=== PATIENT | male | born 1975 | race Caucasian/White ===

== ENCOUNTER 2020-12-10 23:35 | Inpatient (IN) | payer OTHER, SELFPAY ==
[2020-12-10 23:44] VITALS: BP 94/55; PULSE 125; RESP 20; TEMP 39; O2SAT 94; BMI 31.5
--- NOTE | 2020-12-10 23:53 | XRR_ITS ---
PROCEDURE INFORMATION: Exam: XR Chest Exam date and time: 12/11/2020 12:05 AM Age: 45 years old Clinical indication: Fever; Prior surgery; Surgery date: 6+ months TECHNIQUE: Imaging protocol: XR of the chest. Views: 1 view. COMPARISON: CR Chest 1 [place] [id number] 08/03/2018 8:05 PM FINDINGS: Lungs: Unremarkable. No consolidation. Pleural spaces: Unremarkable. No pleural effusion. No pneumothorax. Heart/Mediastinum: Unremarkable. No cardiomegaly. Bones/joints: There has been a median sternotomy. XR/XR chest 1V portable [id number] IMPRESSION: No acute disease.
--- NOTE | 2020-12-10 23:55 | ED_ITS ---
Documented by User: CT Callahan 12/11/20 02:09 HPI - General Adult General: Chief complaint: General Medical Stated complaint: fever Time Seen by Provider: 12/10/20 23:53 Source: patient Mode of arrival: ambulatory Limitations: no limitations History of Present Illness: HPI narrative: 45-year-old male patient comes in today with complaints of nausea vomiting and diarrhea for 3 days. Patient also reports fever. Patient does have a history of IV drug use with his last use 24 hours ago. 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 Patient has had a valve replacement due to this heart disease. Patient denies any routine medications. Associated symptoms: Reports nausea and vomiting Review of Systems General: Reports: 10 or more systems reviewed and unremarkable except in HPI and below Const: Reports: fever(s) GI: Reports: nausea, vomiting and diarrhea Physical Exam Const: COMMON NORMALS: no acute distress and patient oriented x3 GENERAL APPEARANCE: cooperative HENMT: COMMON NORMALS: normocephalic and Normal external nose present HEAD & SCALP: normal to inspection and normocephalic NOSE: Normal external nose present MOUTH: Normal oral and palatal mucosa present THROAT: posterior oropharynx normal Eye: GENERAL EYE: appearance normal, both eyes and all related structures Neck/C-Spine: COMMON NORMALS: full ROM Lymph: LYMPHATIC: no lymphadenopathy noted Chest: COMMONS NORMALS: normal inspection of the chest Resp: COMMON NORMALS: normal respiratory effort EFFORT & INSPECTION: Yes able to speak in complete sentences Cardio: COMMON NORMALS: regular rate and regular rhythm RATE: regular rate RHYTHM: regular rhythm GI: COMMON NORMALS: non-tender INSPECTION: Yes normal to inspection AUSCULTATION: Yes Hyperactive bowel sounds present : COMMON NORMALS: Yes no CVA tenderness BLADDER/KIDNEY EXAM: Yes no CVA tenderness Back/Pelvis: COMMON NORMALS: no CVA tenderness and thoracic and lumbar spine normal to inspection Extremity: COMMON NORMALS: normal to inspection Neuro: COMMON NORMALS: patient oriented x3 and moves all extremities Psych: COMMON NORMALS: mental status grossly normal and cooperative Skin: COMMON NORMALS: no rashes or lesions noted GENERAL SKIN EXAM: no rashes or lesions noted Course ED course: 125, discussed with Dr. Bee abnormalities of patient's labs including a lactate of 3.6, and concerns for patient's history of heart valve disease secondary to MRSA infection. Expressed my also concerns regarding patient's continued IV drug use. He agreed with plan to initiate vancomycin and Zosyn for infection.wjw [id number], reviewed patient white count with Dr. Bee who agreed that patient will need to be admitted for sepsis due to concerns of valve heart replacement, elevated white count and fever. He will visit with patient and discuss with hospitalist. wjw Vital Signs: Vital signs: Vital Signs Temperature 102.4 F H 12/11/20 04:19 Pulse Rate 103 H 12/11/20 04:19 Respiratory Rate 20 H 12/11/20 04:19 Blood Pressure 80/45 12/11/20 04:19 Pulse Oximetry 96 12/11/20 04:19 MDM - General Adult Lab Data: Labs: Lab Results 12/11/20 12/11/20 12/11/20 Range/Units 00:30 00:30 00:32 WBC Cancelled Corrected WBC Cancelled RBC Cancelled Hgb Cancelled Hct Cancelled MCV Cancelled MCH Cancelled MCHC Cancelled RDW Cancelled Plt Count Cancelled MPV Cancelled Gran % Cancelled Neut % (Auto) Cancelled Lymph % (Auto) Cancelled [place] % (Auto) Cancelled Eos % (Auto) Cancelled Baso % (Auto) Cancelled Neut # (Auto) Cancelled Lymph # (Auto) Cancelled [place] # (Auto) Cancelled Eos # (Auto) Cancelled Baso # (Auto) Cancelled Absolute Gran (aut o) Cancelled Nucleated RBC % (a uto) Cancelled Nucleated RBCs # Cancelled Sodium (136-145) mmol/L Potassium (3.5-5.1) mmol/L Chloride (98-107) mmol/L Carbon Dioxide (22-29) mmol/L Anion Gap (5-19) BUN (6-20) mg/dL Creatinine (0.7-1.2) mg/dL GFR Calculation (90-130) mL/min Glucose (65-115) mg/dL Calculated Osmolal ity (285-295) mOsm/k g Lactic Acid (0.5-2.2) mmol/L Lactate (0.5-2.2) mmol/L Calcium (8.5-10.5) mg/dL Total Bilirubin (0.15-1.2) mg/dL AST (0-40) U/L ALT (0-41) U/L Alkaline Phosphata se (40-130) IU/L C-Reactive Protein (0.0-4.9) mg/L Total Protein (6.6-8.7) g/dL Albumin (3.5-5.2) g/dL Globulin (1.3-4.6) g/dL Influenza Type A A g Negative (Negative) Influenza Type B A g Negative (Negative) SARS-CoV-2 Ag (Rap id) Negative (Negative) 12/11/20 12/11/20 12/11/20 Range/Units 00:32 00:32 00:32 WBC Corrected WBC RBC Hgb Hct MCV MCH MCHC RDW Plt Count MPV Gran % Neut % (Auto) Lymph % (Auto) [place] % (Auto) Eos % (Auto) Baso % (Auto) Neut # (Auto) Lymph # (Auto) [place] # (Auto) Eos # (Auto) Baso # (Auto) Absolute Gran (aut o) Nucleated RBC % (a uto) Nucleated RBCs # Sodium 134 L (136-145) mmol/L Potassium 4.2 (3.5-5.1) mmol/L Chloride 99 (98-107) mmol/L Carbon Dioxide 22 (22-29) mmol/L Anion Gap 17.2 (5-19) BUN 26 H (6-20) mg/dL Creatinine 1.7 H (0.7-1.2) mg/dL GFR Calculation 43.8 L (90-130) mL/min Glucose 122 H (65-115) mg/dL Calculated Osmolal ity 284 L (285-295) mOsm/k g Lactic Acid (0.5-2.2) mmol/L Lactate 3.6 H (0.5-2.2) mmol/L Calcium 8.8 (8.5-10.5) mg/dL Total Bilirubin 1.2 (0.15-1.2) mg/dL AST 37 (0-40) U/L ALT 19 (0-41) U/L Alkaline Phosphata se 69 (40-130) IU/L C-Reactive Protein 32.8 H (0.0-4.9) mg/L Total Protein 6.7 (6.6-8.7) g/dL Albumin 3.7 (3.5-5.2) g/dL Globulin 3.0 (1.3-4.6) g/dL Influenza Type A A g (Negative) Influenza Type B A g (Negative) SARS-CoV-2 Ag (Rap id) (Negative) 12/11/20 12/11/20 Range/Units 01:27 02:40 WBC 24.4 H Corrected WBC RBC 4.63 Hgb 14.3 Hct 41.8 L MCV 90.3 MCH 30.9 MCHC 34.2 RDW 13.4 Plt Count 235 MPV 9.8 Gran % Neut % (Auto) 89.4 Lymph % (Auto) 4.1 [place] % (Auto) 4.4 Eos % (Auto) 0.0 Baso % (Auto) 0.6 Neut # (Auto) 21.78 H Lymph # (Auto) 1.0 [place] # (Auto) 1.1 H Eos # (Auto) 0.0 Baso # (Auto) 0.2 H Absolute Gran (aut o) Nucleated RBC % (a uto) 0 Nucleated RBCs # 0.0 Sodium (136-145) mmol/L Potassium (3.5-5.1) mmol/L Chloride (98-107) mmol/L Carbon Dioxide (22-29) mmol/L Anion Gap (5-19) BUN (6-20) mg/dL Creatinine (0.7-1.2) mg/dL GFR Calculation (90-130) mL/min Glucose (65-115) mg/dL Calculated Osmolal ity (285-295) mOsm/k g Lactic Acid 1.7 (0.5-2.2) mmol/L Lactate (0.5-2.2) mmol/L Calcium (8.5-10.5) mg/dL Total Bilirubin (0.15-1.2) mg/dL AST (0-40) U/L ALT (0-41) U/L Alkaline Phosphata se (40-130) IU/L C-Reactive Protein (0.0-4.9) mg/L Total Protein (6.6-8.7) g/dL Albumin (3.5-5.2) g/dL Globulin (1.3-4.6) g/dL Influenza Type A A g (Negative) Influenza Type B A g (Negative) SARS-CoV-2 Ag (Rap id) (Negative) Discharge Plan Discharge Patient Disposition: Admitted As Inpatient Admit Provider: Timmy Berrios Clinical Impression: Sepsis Qualifiers: Sepsis type: sepsis due to unspecified organism Sepsis acute organ dysfunction status: unspecified Qualified Code(s): A41.9 - Sepsis, unspecified organism Condition: Stable Coding Level of Care Code ED Soil Technician for [facility] Fwd Exam Comprehensive Documented by User: Tab Bee, 12/11/20 04:26 HPI - General Adult General: Chief complaint: General Medical Stated complaint: fever Time Seen by Provider: 12/10/20 23:53 Course Consultations: Consultation #1: Migel Vital Signs: Vital signs: Vital Signs Temperature 102.4 F H 12/11/20 04:19 Pulse Rate 103 H 12/11/20 04:19 Respiratory Rate 20 H 12/11/20 04:19 Blood Pressure 80/45 12/11/20 04:19 Pulse Oximetry 96 12/11/20 04:19 MDM - General Adult MDM Narrative: Medical decision making narrative: 45-year-old patient originally seen by CT James. I agree with his history, evaluation, and treatment. I have seen this patient as well. He has a history of endocarditis, with valve replacement. He continues to use IV drugs. He comes in with high fever of 102.7. He is mildly tachycardic. He was mildly hypotensive on arrival, which returned to normal with 1 fluid bolus. His white blood cell count is 24.4. There is a left shift. His creatinine is 1.7 which appears chronically stable for him. There is no clear source of the fever and leukocytosis yet. Swabs for flu and COVID-19 are negative. His chest x-ray is negative. His urinalysis is pending. Blood cultures have been obtained. He has received vancomycin and Zosyn. Given his history of endocarditis, this must be entertained, as he continues to use IV drugs. He will be hospitalized. Hospitalist has seen the patient in the ER Lab Data: Labs: Lab Results 0412/11/20 12/11/20 Range/Units 00:30 00:30 00:32 WBC Cancelled Corrected WBC Cancelled RBC Cancelled Hgb Cancelled Hct Cancelled MCV Cancelled MCH Cancelled MCHC Cancelled RDW Cancelled Plt Count Cancelled MPV Cancelled Gran % Cancelled Neut % (Auto) Cancelled Lymph % (Auto) Cancelled [place] % (Auto) Cancelled Eos % (Auto) Cancelled Baso % (Auto) Cancelled Neut # (Auto) Cancelled Lymph # (Auto) Cancelled [place] # (Auto) Cancelled Eos # (Auto) Cancelled Baso # (Auto) Cancelled Absolute Gran (aut o) Cancelled Nucleated RBC % (a uto) Cancelled Nucleated RBCs # Cancelled Sodium (136-145) mmol/L Potassium (3.5-5.1) mmol/L Chloride (98-107) mmol/L Carbon Dioxide (22-29) mmol/L Anion Gap (5-19) BUN (6-20) mg/dL Creatinine (0.7-1.2) mg/dL GFR Calculation (90-130) mL/min Glucose (65-115) mg/dL Calculated Osmolal ity (285-295) mOsm/k g Lactic Acid (0.5-2.2) mmol/L Lactate (0.5-2.2) mmol/L Calcium (8.5-10.5) mg/dL Total Bilirubin (0.15-1.2) mg/dL AST (0-40) U/L ALT (0-41) U/L Alkaline Phosphata se (40-130) IU/L C-Reactive Protein (0.0-4.9) mg/L Total Protein (6.6-8.7) g/dL Albumin (3.5-5.2) g/dL Globulin (1.3-4.6) g/dL Influenza Type A A g Negative (Negative) Influenza Type B A g Negative (Negative) SARS-CoV-2 Ag (Rap id) Negative (Negative) 12/11/20 12/11/20 12/11/20 Range/Units 00:32 00:32 00:32 WBC Corrected WBC RBC Hgb Hct MCV MCH MCHC RDW Plt Count MPV Gran % Neut % (Auto) Lymph % (Auto) [place] % (Auto) Eos % (Auto) Baso % (Auto) Neut # (Auto) Lymph # (Auto) [place] # (Auto) Eos # (Auto) Baso # (Auto) Absolute Gran (aut o) Nucleated RBC % (a uto) Nucleated RBCs # Sodium 134 L (136-145) mmol/L Potassium 4.2 (3.5-5.1) mmol/L Chloride 99 (98-107) mmol/L Carbon Dioxide 22 (22-29) mmol/L Anion Gap 17.2 (5-19) BUN 26 H (6-20) mg/dL Creatinine 1.7 H (0.7-1.2) mg/dL GFR Calculation 43.8 L (90-130) mL/min Glucose 122 H (65-115) mg/dL Calculated Osmolal ity 284 L (285-295) mOsm/k g Lactic Acid (0.5-2.2) mmol/L Lactate 3.6 H (0.5-2.2) mmol/L Calcium 8.8 (8.5-10.5) mg/dL Total Bilirubin 1.2 (0.15-1.2) mg/dL AST 37 (0-40) U/L ALT 19 (0-41) U/L Alkaline Phosphata se 69 (40-130) IU/L C-Reactive Protein 32.8 H (0.0-4.9) mg/L Total Protein 6.7 (6.6-8.7) g/dL Albumin 3.7 (3.5-5.2) g/dL Globulin 3.0 (1.3-4.6) g/dL Influenza Type A A g (Negative) Influenza Type B A g (Negative) SARS-CoV-2 Ag (Rap id) (Negative) 12/11/20 12/11/20 Range/Units 01:27 02:40 WBC 24.4 H Corrected WBC RBC 4.63 Hgb 14.3 Hct 41.8 L MCV 90.3 MCH 30.9 MCHC 34.2 RDW 13.4 Plt Count 235 MPV 9.8 Gran % Neut % (Auto) 89.4 Lymph % (Auto) 4.1 [place] % (Auto) 4.4 Eos % (Auto) 0.0 Baso % (Auto) 0.6 Neut # (Auto) 21.78 H Lymph # (Auto) 1.0 [place] # (Auto) 1.1 H Eos # (Auto) 0.0 Baso # (Auto) 0.2 H Absolute Gran (aut o) Nucleated RBC % (a uto) 0 Nucleated RBCs # 0.0 Sodium (136-145) mmol/L Potassium (3.5-5.1) mmol/L Chloride (98-107) mmol/L Carbon Dioxide (22-29) mmol/L Anion Gap (5-19) BUN (6-20) mg/dL Creatinine (0.7-1.2) mg/dL GFR Calculation (90-130) mL/min Glucose (65-115) mg/dL Calculated Osmolal ity (285-295) mOsm/k g Lactic Acid 1.7 (0.5-2.2) mmol/L Lactate (0.5-2.2) mmol/L Calcium (8.5-10.5) mg/dL Total Bilirubin (0.15-1.2) mg/dL AST (0-40) U/L ALT (0-41) U/L Alkaline Phosphata se (40-130) IU/L C-Reactive Protein (0.0-4.9) mg/L Total Protein (6.6-8.7) g/dL Albumin (3.5-5.2) g/dL Globulin (1.3-4.6) g/dL Influenza Type A A g (Negative) Influenza Type B A g (Negative) SARS-CoV-2 Ag (Rap id) (Negative) Discharge Plan Discharge Patient Disposition: Admitted As Inpatient Admit Provider: Timmy Berrios Clinical Impression: Sepsis Qualifiers: Sepsis type: sepsis due to unspecified organism Sepsis acute organ dysfunction status: unspecified Qualified Code(s): A41.9 - Sepsis, unspecified organism Condition: Stable Coding Level of Care Code ED Soil Technician for [facility] Fwd Exam Comprehensive
[2020-12-11] VITALS (15 sets, daily range): BP systolic 80–121; BP diastolic 45–63; PULSE 72–104; RESP 17–20; TEMP 37.4–39.1; O2SAT 94–99
[2020-12-11] MEDS: ketorolac 30 mg/mL INJ 15 MG IVP (00:27)
[2020-12-11] MEDS: sodium chloride 0.9% 1,000 ML 999 ML IV ×2 (00:27→01:33)
[2020-12-11] MEDS: ondansetron 2 mg/ML SDV 2 mL 4 MG IVP (00:27)
[2020-12-11 00:59] LABS: Lactate (Lactic Acid level) 3.6 mmol/L (0.5-2.2)
[2020-12-11 01:01] LABS: Alanine Aminotransferase 19 U/L (0-41); Albumin Level 3.7 g/dL (3.5-5.2); Alkaline Phosphatase 69 IU/L (40-130); Anion Gap 17.2 (5-19); Aspartate Amino Transferase 37 U/L (0-40); Blood Urea Nitrogen 26 mg/dL (6-20); Calcium 8.8 mg/dL (8.5-10.5); Carbon Dioxide 22 mmol/L (22-29); Chloride 99 mmol/L (98-107); Glomerular Filtration Rate 43.8 mL/min (90-130); Glucose 122 mg/dL (65-115); Osmolality Calculated 284 mOsm/kg (285-295); Potassium 4.2 mmol/L (3.5-5.1); Sodium 134 mmol/L (136-145); Total Bilirubin 1.2 mg/dL (0.15-1.2); Total Protein 6.7 g/dL (6.6-8.7)
[2020-12-11 01:03] LABS: Influenza A by IFA Negative (Negative); Influenza B by IFA Negative (Negative); SARS Covid-2 Antigen Negative (Negative)
--- NOTE | 2020-12-11 01:13 | CTR_ITS ---
PROCEDURE INFORMATION: Exam: CT Abdomen And Pelvis Without Contrast Exam date and time: 12/11/2020 1:16 AM Age: 45 years old Clinical indication: Nausea and vomiting; Additional info: N/v/d, fever, TECHNIQUE: Imaging protocol: Computed tomography of the abdomen and pelvis without contrast. Radiation optimization: All CT scans at this facility use at least one of these dose optimization techniques: automated exposure control; mA and/or kV adjustment per patient size (includes targeted exams where dose is matched to clinical indication); or iterative reconstruction. COMPARISON: CT Chest/Abdomen/Pelvis w IV* 06/05/2018 3:52 PM RADIATION DOSE METRICS: Total DLP (mGy-cm): 1549.18 FINDINGS: Lungs: The lung bases are clear. No effusion Liver: There is fatty infiltration of the liver. Gallbladder and bile ducts: No wall thickening, pericholecystic fluid or stones. Pancreas: Normal. No ductal dilation. Spleen: Normal. No splenomegaly. Adrenal glands: Normal. No mass. Kidneys and ureters: 2 mm nonobstructing right renal pelvis stone. Stomach and bowel: Unremarkable. No obstruction. No mucosal thickening. Appendix: No evidence of appendicitis. Intraperitoneal space: Unremarkable. No free air. No significant fluid collection. Vasculature: Unremarkable. No abdominal aortic aneurysm. Lymph nodes: Unremarkable. No enlarged lymph nodes. Urinary bladder: Unremarkable as visualized. Reproductive: Unremarkable as visualized. Bones/joints: Unremarkable. No acute fracture. Soft tissues: Unremarkable. CT/CT abdomen pelvis wo con [id number] IMPRESSION: 1. Fatty infiltration of the liver. 2. 2 mm nonobstructing right renal pelvis stone. Radiation Dose CTDIVOL = (mGy): DLP = 1549.18 (mGy-cm)
[2020-12-11] MEDS: piperacillin-tazobactam 3.375 GM in sodium chloride 0.9% (plus) 50 ML IV ×3 (01:34→16:32)
[2020-12-11 02:00] LABS: Basophils # 0.2 10^3/uL (0.0-0.1); Basophils % 0.6 %; Hematocrit 41.8 % (42.0-52.0); Hemoglobin 14.3 g/dL (11.7-16.6); Lymphocytes % 4.1 %; Mean Corpuscular HGB Conc 34.2 g/dL (30.0-36.0); Mean Corpuscular Hemoglobin 30.9 pg (28.0-34.0); Mean Corpuscular Volume 90.3 fL (80-94); Mean Platelet Volume 9.8 fL (7.4-10.4); Monocytes # 1.1 10^3/uL (0.2-0.9); Monocytes % 4.4 %; Neutrophils # 21.78 10^3/uL (1.8-7.7); Neutrophils % 89.4 %; Nucleated Red Blood Cells % 0 %; Platelet Count 235 10^3/cmm (130-400); Red Blood Count 4.63 10^6/uL (4.1-5.3); Red Cell Distribution Width 13.4 % (12.1-15.1); White Blood Count 24.4 10^3/uL (4.0-10.0)
[2020-12-11] MEDS: vancomycin 1,000 MG in sodium chloride 0.9% 250 ML 250 MG IV (02:11)
[2020-12-11] MEDS: acetaminophen 500 mg Tablet 1000 MG PO (03:01)
[2020-12-11 03:03] LABS: Lactic Sepsis W/Reflex 1.7 mmol/L (0.5-2.2)
[2020-12-11 03:11] LABS: C Reactive Protein 32.8 mg/L (0.0-4.9)
--- NOTE | 2020-12-11 04:00 | USCV_ITS ---
Radu Olivera Age: 45 Gender: M : 1975 Exam Date: 12/11/2020 07:08 Ordering Phys: Timmy Berrios MD Technologist: Christine Enriquez Exam Location: [facility] [place] Indication: Endocarditis, history of tricuspid valve replacement BP: 121 / 49 HR: 89 Rhythm: Sinus Technical Quality: Suboptimal MEASUREMENTS (Male / Female) Normal Values 2D ECHO LV Diastolic Diameter PLAX 3.7 cm 4.2 - 5.9 / 3.9 - 5.3 cm LV Systolic Diameter PLAX 3.2 cm LV Chamber Size 4.7 cm IVS Diastolic Thickness 1.3 cm 0.6 - 1.0 / 0.6 - 0.9 cm IVS Systolic Thickness 1.7 cm LVPW Diastolic Thickness 0.9 cm 0.6 - 1.0 / 0.6 - 0.9 cm LVPW Systolic Thickness 1.0 cm RV Chamber Size 3.5 cm LVOT Diameter 2.3 cm LV Ejection Fraction 2D Teich 29.4 % LV Ejection Fraction MOD 2C 48.6 % LV Ejection Fraction 2C AL 46.9 % LA Diameter 3.0 cm LA Width 2.3 cm LA Height 5.3 cm RA Width 2.6 cm RA Height 5.3 cm Aorta at Sinotubular Diameter 3.0 cm M-MODE LV Diastolic Diameter MM 4.5 cm 4.2 - 5.9 / 3.9 - 5.3 cm LV Systolic Diameter MM 2.9 cm LV Ejection Fraction MM Teich 66.1 % IVS Diastolic Thickness MM 1.2 cm 0.6 - 1.0 / 0.6 - 0.9 cm IVS Systolic Thickness MM 1.6 cm LVPW Diastolic Thickness MM 1.4 cm 0.6 - 1.0 / 0.6 - 0.9 cm LVPW Systolic Thickness MM 1.9 cm RV Diastolic Diameter MM 1.0 cm Aortic Annulus Diameter 4.0 cm LA Ao Ratio MM 0.8 MV E Point Septal Separation 1.1 cm DOPPLER AV Peak Velocity 79.0 cm/s LVOT Peak Velocity 57.0 cm/s AV Area Cont Eq vti 2.8 cm squared AV Area Cont Eq pk 3.0 cm squared MV Area PHT 4.0 cm squared Mitral E to A Ratio 1.1 MV E' Velocity 34.5 cm/s Mitral E to MV E' Ratio 5.7 Mitral E to LV E' Lateral Ratio 4.0 Mitral E to LV E' Septal Ratio 9.7 TV Peak E Velocity 171.0 cm/s Right Atrial Pressure 8.0 mmHg PV Peak Velocity 77.0 cm/s RV Acceleration Time 0.1 s RV Ejection Time 0.2 s RV AcT/ET 0.4 FINDINGS Left Ventricle Normal left ventricular cavity size. Normal left ventricular systolic function. Left ventricular ejection fraction is estimated at 55 %. Normal diastolic function. Right Ventricle The right ventricle is normal in size and function. Right Atrium Moderately increased right atrial size. Left Atrium The left atrium is normal in size. Mitral Valve Structurally normal mitral valve without significant stenosis or prolapse. There is no mitral regurgitation. Aortic Valve Structurally normal aortic valve without significant sclerosis or stenosis. There is no aortic regurgitation. Tricuspid Valve Bioprosthetic tricuspid valve sitting in normal position, there appeared to be thickening and sub prosthetic valve apparatus funky movement suspicious for vegetation. Clinical correlation advised further exploration with transesophageal echocardiogram recommend Pulmonic Valve Pulmonic valve not well visualized. Pericardium Normal pericardium without effusion. Aorta Normal ascending aorta dimension. CONCLUSIONS 1-Normal left ventricular cavity size. Normal left ventricular systolic function. Left ventricular ejection fraction is estimated at 55 %. Normal diastolic function. 2-Bioprosthetic tricuspid valve sitting in normal position, there appeared to be thickening and sub prosthetic valve apparatus funky movement suspicious for vegetation. Clinical correlation advised further exploration with transesophageal echocardiogram recommend. 3-No more valvular abnormality observed 4-There is no pericardial effusion. 5-Right atrial pressure is around 15 mm of mercury. 6-There are no prior Trans echocardiogram studies to compare. Sal Myers MD (Electronically Signed) Final Date: 11 December 2020 14:33 S
--- NOTE | 2020-12-11 04:03 | PM.HP ---
Providers/Chief Complaint Admitting Physician: Timmy Berrios Primary Care Provider: Cooper Lua DO Chief Complaint: fever History of Present Illness Radu Olivera is a 45 year old male with past medical history of IV drug use, history of infective endocarditis and bioprosthetic tricuspid valve replacement in 2019 who presented to emergency room due to fever which started several days ago. Reports associated rigors, chills. Reports muscle aches. The patient is very sleepy and is not willing to actively participate in the conversation. He is not willing to provide details. He admits to currently using IV drugs. He denies any associated headache, neck stiffness, nausea or vomiting, chest pain, shortness of breath, cough, palpitations, diarrhea, dysuria. Review of Systems General: Reports: 10 or more systems reviewed and unremarkable except in HPI and below Medications/Allergies Home Medications Medication Instructions Recorded Confirmed Last Taken Type No Known Home Medications 12/10/20 12/10/20 Unknown History Allergies Allergy/AdvReac Type Severity Reaction Status Date / Time No Known Allergies Allergy Verified 12/10/20 23:48 Vitals/I&O/Wt Last Vital Signs Temp 99.4 F 12/11/20 01:38 Pulse 99 12/11/20 03:01 Resp 18 12/11/20 03:01 BP 121/49 12/11/20 03:01 Pulse Ox 99 12/11/20 03:01 12/10/20 12/10/20 12/11/20 14:59 22:59 06:59 Intake Total 2300 / 2300 Balance 2300 / 2300 Weight last 48 hrs Weight 99.79 kg Physical Exam Narrative: EXAM NARRATIVE: The patient is sleepy. When he wakes up his responses are adequate. Falls asleep quickly. No acute distress. Skin is warm and dry Moist mucous membranes Eyes PERRL, extraocular muscles are intact Neck supple. No JVD Moves all extremities. No focal weakness. No facial asymmetry. Kernig and Brudzinski are negative. Lungs are clear. No respiratory distress Heart S1, S2, regular Abdomen soft, nontender, obese, bowel sounds are present Extremities. Injection joe are present on the left elbow. No associated swelling or signs of cellulitis or abscess. No peripheral cyanosis or calf tenderness bilaterally Data : 12/11/20 01:27 12/11/20 00:32 Other Labs: Laboratory Results WBC 24.4 10^3/uL (4.0-10.0) H 12/11/20 01:27 Corrected WBC Cancelled 12/11/20 00:32 RBC 4.63 10^6/uL (4.1-5.3) 12/11/20 01:27 Hgb 14.3 g/dL (11.7-16.6) 12/11/20 01:27 Hct 41.8 % (42.0-52.0) L 12/11/20 01:27 MCV 90.3 fL (80-94) 12/11/20 01:27 MCH 30.9 pg (28.0-34.0) 12/11/20 01: MCHC 34.2 g/dL (30.0-36.0) 12/11/20 01: RDW 13.4 % (12.1-15.1) 12/11/20 01:27 Plt Count 235 10^3/cmm (130-400) 12/11/20 01:27 MPV 9.8 fL (7.4-10.4) 12/11/20 01:27 Gran % Cancelled 12/11/20 00:32 Neut % (Auto) 89.4 % 12/11/20 01:27 Lymph % (Auto) 4.1 % 12/11/20 01:27 [place] % (Auto) 4.4 % 12/11/20 01:27 Eos % (Auto) 0.0 % 12/11/20 01: Baso % (Auto) 0.6 % 12/11/20 01:27 Neut # (Auto) 21.78 10^3/uL (1.8-7.7) H 12/11/20 01:27 Lymph # (Auto) 1.0 10^3/uL (0.8-4.8) 12/11/20 01:27 [place] # (Auto) 1.1 10^3/uL (0.2-0.9) H 12/11/20 01:27 Eos # (Auto) 0.0 10^3/uL (0.0-0.8) 12/11/20 01:27 Baso # (Auto) 0.2 10^3/uL (0.0-0.1) H 12/11/20 01:27 Absolute Gran (auto) Cancelled 12/11/20 00:32 Nucleated RBC % (auto) 0 % 12/11/20 01:27 Nucleated RBCs # 0.0 /100WBC 12/11/20 01:27 Sodium 134 mmol/L (136-145) L 12/11/20 00:32 Potassium 4.2 mmol/L (3.5-5.1) 12/11/20 00:32 Chloride 99 mmol/L (98-107) 12/11/20 00:32 Carbon Dioxide 22 mmol/L (22-29) 12/11/20 00:32 Anion Gap 17.2 (5-19) 12/11/20 00:32 BUN 26 mg/dL (6-20) H 12/11/20 00:32 Creatinine 1.7 mg/dL (0.7-1.2) H 12/11/20 00:32 GFR Calculation 43.8 mL/min (90-130) L 12/11/20 00:32 Glucose 122 mg/dL (65-115) H 12/11/20 00:32 Calculated Osmolality 284 mOsm/kg (285-295) L 12/11/20 00:32 Lactic Acid 1.7 mmol/L (0.5-2.2) 12/11/20 02:40 Lactate 3.6 mmol/L (0.5-2.2) H 12/11/20 00:32 Calcium 8.8 mg/dL (8.5-10.5) 12/11/20 00:32 Total Bilirubin 1.2 mg/dL (0.15-1.2) 12/11/20 00:32 AST 37 U/L (0-40) 12/11/20 00:32 ALT 19 U/L (0-41) 12/11/20 00:32 Alkaline Phosphatase 69 IU/L (40-130) 12/11/20 00:32 C-Reactive Protein 32.8 mg/L (0.0-4.9) H 12/11/20 00:32 Total Protein 6.7 g/dL (6.6-8.7) 12/11/20 00:32 Albumin 3.7 g/dL (3.5-5.2) 12/11/20 00:32 Globulin 3.0 g/dL (1.3-4.6) 04 00:32 Influenza Type A Ag Negative (Negative) 12/11/20 00:30 Influenza Type B Ag Negative (Negative) 12/11/20 00:30 SARS-CoV-2 Ag (Rapid) Negative (Negative) 12/11/20 00:30 Impressions Chest X-Ray 12/10/20 23:53 IMPRESSION: No acute disease. Abdomen/Pelvis CT 12/11/20 01:13 IMPRESSION: 1. Fatty infiltration of the liver. 2. 2 mm nonobstructing right renal pelvis stone. Radiation Dose CTDIVOL = (mGy): DLP = 1549.18 (mGy-cm) Micro: Microbiology 12/11/20 01:20 Blood Culture - Preliminary Blood SPECIMEN COLLECTED 12/11/20 00:32 Blood Culture - Preliminary Blood SPECIMEN COLLECTED A&P Additional A&P Information 45 year old male with past medical history of IV drug use, history of infective endocarditis and bioprosthetic tricuspid valve replacement in 2019 who presented to emergency room due to fever which started several days ago. Fever. Unknown etiology. UA is pending. At this point infective endocarditis is highly suspected. Blood cultures are taken. We will start vancomycin and Zosyn. Will request complete echo to evaluate his valves. We will monitor his CRP and procalcitonin level. Somnolent. I suspect this is drug-induced. Will order his urine tox screen. We will monitor him closely. Acute kidney injury probably secondary to dehydration or infection. Will wait for UA. Will hydrate and monitor his renal function. Mild hyponatremia probably secondary to dehydration. DVT prophylaxis. Heparin. CODE STATUS. The patient wants to be full code. The plan of care was discussed with the patient. He verbalized understanding and agreement. Attestations Medical Necessity Statement*: Based on my assessment of patient's current condition he will require more than 2 midnights in the hospital. Coding Level of Care Code Acute Slate Roofer for Cesar Saucedo
[2020-12-11] MEDS: sodium chloride 0.9% 1,000 ML 125 ML IV ×2 (04:43→12:00)
[2020-12-11] MEDS: famotidine 20 mg/2 mL INJ IVP ×2 (04:45→16:32)
[2020-12-11] MEDS: heparin 5,000 unit/mL INJ 1 mL 5000 UNIT SUBCUT ×2 (04:46→16:32)
[2020-12-11 08:14] LABS: Lactic Sepsis W/Reflex 1.3 mmol/L (0.5-2.2)
--- NOTE | 2020-12-11 13:32 | PM.PN ---
Subjective Subjective: Interval history: Mild overnight. Physical reviewed. On examination lying comfortably in bed, little drowsy. Denies any nausea, vomiting. Wakes up to answer appropriately. Has had minimal breakfast today morning. Blood pressures have been ranging from 90-97 systolics. Vitals/I&O/Wt Last Vital Signs Temp 99.3 F 12/11/20 12:00 Pulse 79 12/11/20 12:00 Resp 18 12/11/20 12:00 BP 88/62 12/11/20 12:00 Pulse Ox 94 12/11/20 09:20 12/10/20 12/11/20 12/11/20 22:59 06:59 14:59 Intake Total 2300 / 2300 910.417 / 910.417 Balance 2300 / 2300 910.417 / 910.417 Weight last 48 hrs Weight 99.79 kg Physical Exam Narrative: EXAM NARRATIVE: General: No acute distress, AO x3, sleepy, drowsy, wakes up once appropriately, skin warm and dry HEENT: PERRLA, pupils bilaterally equal and reactive Chest: Normal vesicular breath sounds, no added sounds, equal good air entry bilaterally CVS: S1-S2 regular, pansystolic murmur in the tricuspid area, soft MDM at tricuspid area, no tachycardia, no gallops, no rubs Abdomen: Soft, nontender, no organomegaly, bowel sounds present Neuro: No focal deficits, no facial deformity, AO x3, power 5/5 in all limbs Data : 12/11/20 01:27 12/11/20 00:32 Micro: Microbiology 12/11/20 01:20 Blood Culture - Preliminary Blood SPECIMEN COLLECTED 12/11/20 00:32 Blood Culture - Preliminary Blood SPECIMEN COLLECTED A&P Assessment and plan (1) Sepsis: Status: Acute Qualifiers: Sepsis acute organ dysfunction status: unspecified Sepsis type: sepsis due to unspecified organism Qualified Code(s): A41.9 - Sepsis, unspecified organism (2) Fever: Status: Acute (3) IV drug abuse: Status: Acute Additional A&P Information 45 year old male with past medical history of IV drug use, history of infective endocarditis and bioprosthetic tricuspid valve replacement in 2019 who presented to emergency room due to fever which started several days ago. Sepsis: With history of IV drug abuse and history of infective endocarditis will have to rule out infective endocarditis again. Blood cultures taken, awaited. Lactic acid normal. Check procalcitonin, proBNP, MRSA swab, urinalysis, drug screen, urine culture, urine lites. For now continue patient on vancomycin and Zosyn. Will de-escalate antibiotics as per the culture results. Echocardiogram to be done. Tylenol for fever. Normal saline 125 cc/h. Monitor for fluid overload. Keep mean arterial blood pressures over 65. KINZA: Most likely secondary dehydration versus sepsis. Medical reconciliation done for nephrotoxic drugs. Check urine lites, urine creatinine, urine eosinophils. DVT prophylaxis. Heparin. Cardiac diet CODE STATUS. The patient wants to be full code. The plan of care was discussed with the patient. He verbalized understanding and agreement. Attestations Medical Necessity Statement*: Patient for management of sepsis most likely secondary to infective endocarditis Time Spent in Patient Care: Greater than 35 minutes (>than 50% of time spent in counselling and/or direct pt care on unit). Coding Level of Care Code Acute Charging Machine Operator for Cesar Saucedo Diagnoses Sepsis A41.9 Sepsis acute organ dysfunction status: unspecified Sepsis type: sepsis due to unspecified organism Fever R50.9 IV drug abuse F19.10
[2020-12-11 14:26] LABS: Add Urine Microscopic? YES; Bilirubin Urine 1+ (Negative); Blood Urine Neg (Negative); Glucose Urine UA Norm (Normal); Ketones Urine Negative (Negative); Leukocyte Esterase Urine Negative (Negative); Nitrate Urine Negative (Negative); Protein Urine Trace (Negative); Urine Appearance Clear (CLEAR); Urine Color Dark Yellow (Yellow); Urobilinogen Urine 1 mg/dL (Negative); pH Urine 5 (5-7)
[2020-12-11 14:34] LABS: WBC Urine RARE /hpf (0-5)
[2020-12-11 14:35] LABS: Bacteria Urine 1+ /hpf; Mucus Urine 1+ /hpf; Squamous Epithelial Cell Urine RARE /hpf (0-5)
[2020-12-11 14:36] LABS: NT Pro B Type Natriuretic Pept 1626 pg/mL (0-125); Procalcitonin 32.74 ng/mL (0-0.5)
[2020-12-11 14:36] LABS: Add Urine Culture? No
[2020-12-11 14:47] LABS: Iron 10 ug/dL (59-158); Percent Saturation 3.7 % (20-50); Total Iron Binding Capacity 270 mcg/dl; Unsaturated Iron Binding 260 ug/dL (112-347)
[2020-12-11 14:50] LABS: Amphetamines Screen Urine Positive (Negative); Barbiturates Screen Urine Negative (Negative); Benzodiazepines Screen Urine Negative (Negative); Cocaine Screen Urine Negative (Negative); Opiate Screen Urine Positive (Negative); PCP Screen Urine Negative (Negative); THC Screen Urine Negative (Negative)
[2020-12-11 15:02] LABS: Urine Creatinine 302 mg/dL (39-259)
[2020-12-11 15:42] LABS: Thyroid Stimulating Hormone 0.18 uIU/mL (0.27-4.20)
[2020-12-11 15:46] LABS: Eosinophil Urine No Eosinophils Seen; Urine Eosinophil Count 0 (0-0)
--- NOTE | 2020-12-11 17:41 | PC.NURSE ---
Dr. Cruz notified of blood cultures.
[2020-12-11] MEDS: vancomycin 1,500 MG/300 ML PIGGYBACK 200 MG IV (20:13)
[2020-12-11] MEDS: acetaminophen 325 mg Tablet 650 MG PO (20:38)
[2020-12-11] MEDS: sodium chloride 0.9% 1,000 ML 100 ML IV (21:14)
[2020-12-12] VITALS (10 sets, daily range): BP systolic 99–118; BP diastolic 57–74; PULSE 75–92; RESP 18–24; TEMP 37.4–38.6; O2SAT 94–98
[2020-12-12] MEDS: piperacillin-tazobactam 3.375 GM in sodium chloride 0.9% (plus) 50 ML IV ×3 (01:31→17:09)
[2020-12-12] MEDS: acetaminophen 325 mg Tablet 650 MG PO ×2 (01:36→11:30)
[2020-12-12] MEDS: lidocaine 5% Patch 1 PATCH TOPICAL (02:48)
[2020-12-12] MEDS: famotidine 20 mg/2 mL INJ IVP ×2 (05:11→17:09)
[2020-12-12] MEDS: heparin 5,000 unit/mL INJ 1 mL 5000 UNIT SUBCUT ×2 (05:11→22:57)
[2020-12-12 05:18] LABS: Basophils # 0.1 10^3/uL (0.0-0.1); Basophils % 0.5 %; Eosinophils # 0.2 10^3/uL (0.0-0.8); Eosinophils % 1.2 %; Hematocrit 41.3 % (42.0-52.0); Lymphocytes % 7.3 %; Mean Corpuscular HGB Conc 33.9 g/dL (30.0-36.0); Mean Corpuscular Hemoglobin 30.8 pg (28.0-34.0); Mean Corpuscular Volume 90.8 fL (80-94); Mean Platelet Volume 9.6 fL (7.4-10.4); Monocytes # 0.6 10^3/uL (0.2-0.9); Neutrophils # 12.06 10^3/uL (1.8-7.7); Neutrophils % 86.1 %; Nucleated Red Blood Cells % 0 %; Platelet Count 158 10^3/cmm (130-400); Red Blood Count 4.55 10^6/uL (4.1-5.3); Red Cell Distribution Width 13.5 % (12.1-15.1)
[2020-12-12 05:37] LABS: Lactic Sepsis W/Reflex 1.3 mmol/L (0.5-2.2)
[2020-12-12 05:47] LABS: Procalcitonin 17.73 ng/mL (0-0.5)
[2020-12-12 05:58] LABS: Alanine Aminotransferase 29 U/L (0-41); Albumin Level 3.3 g/dL (3.5-5.2); Alkaline Phosphatase 62 IU/L (40-130); Anion Gap 15.6 (5-19); Aspartate Amino Transferase 42 U/L (0-40); Blood Urea Nitrogen 17 mg/dL (6-20); Calcium 7.8 mg/dL (8.5-10.5); Carbon Dioxide 18 mmol/L (22-29); Chloride 106 mmol/L (98-107); Globulin 3.1 g/dL (1.3-4.6); Glomerular Filtration Rate 59.7 mL/min (90-130); Glucose 103 mg/dL (65-115); Magnesium 1.6 mg/dL (1.7-2.3); Osmolality Calculated 284 mOsm/kg (285-295); Potassium 3.6 mmol/L (3.5-5.1); Sodium 136 mmol/L (136-145); Total Bilirubin 0.9 mg/dL (0.15-1.2); Total Protein 6.4 g/dL (6.6-8.7)
[2020-12-12] MEDS: sodium chloride 0.9% 1,000 ML 100 ML IV ×2 (08:50→21:59)
--- NOTE | 2020-12-12 11:11 | PC.CHAP ---
Pastoral Care Encounter/Spiritual Assessment Type of Contact [] Declined aviation medicine specialist visit [] Patient/Family/Request visit [] Outpatient visit [] Follow-up visit [] Physician referral [] Code/Alert [] Routine visit [] Staff referral [] Actively dying [] Patient sleeping [] Family support [] [] Out of room [] Palliative care [] [] Receiving care in room [] Pre-surgical visit [] Trauma [] Long length of stay [] ICU visit [] Other: Relational/Emotional Strength [] Patient feels connected with others/family/visitors/staff [] Distress [] Loneliness/isolation [] Abandonment Spirituality of Patient [x] Person of [place] [x] Attends [employer] of their [place] [x] Believes in Prayer [] Reads Bible or Yazidi materials [] There are Spiritual issues to be addressed Anesthesiologist/Physician Interventions [x] Prayer [] Active listening [] Non-anxious presence [] Spiritual/emotional support [] Crisis/trauma care [] Spiritual counseling [] Bereavement support [] Provided bereavement packet [] Provided Bible/devotional materials [] Provided toy/stuffed animal, coloring book to patient or family member [] Provided Communion [] Anointing/Liberal [] Salvation [] Completed spiritual assessment [] Other: Impact on Illness or Injury [] Angry [] Fearful [] Anxious [] Often cries [] Exhaustion [] Unable to work [] Unable to attend orthodox [] Unable to walk/stand [] Unable to read [] Unable to drive [] Unable to eat/drink [] Unable to sleep [] Unable to be with family [] Patient intubated [] Other: Summary waiting to go home Time spent with patient 15 min
[2020-12-12] MEDS: LORazepam 2 mg/mL INJ 1 mL 0.5 MG IVP ×2 (12:25→21:59)
[2020-12-12 13:39] LABS: Free T4 Free Thyroxine 1.02 ng/dL (0.82-1.77); T3 Free 1.9 PG/ML (2.0-4.4)
--- NOTE | 2020-12-12 14:57 | PM.PN ---
Subjective Subjective: Interval history: No acute events overnight. Patient blood pressure is a lot better. On examination he is restless, fidgety, complaining of pain all over his body. T-max in last 24 hours 101.5 Fahrenheit. Blood cultures from admission and one sent yesterday positive for GPC's. No nausea or vomiting overnight. Denies headache. Denies chest pain or palpitations. Vitals/I&O/Wt Last Vital Signs Temp 101.5 F H 12/12/20 11:22 Pulse 81 12/12/20 14:00 Resp 18 12/12/20 11:22 BP 108/69 12/12/20 11:22 Pulse Ox 98 12/12/20 11:22 12/11/20 12/12/20 12/12/20 22:59 06:59 14:59 Intake Total 1350 / 2310.417 1730 / 4040.417 1530 / 1530 Balance 1350 / 2010.417 1730 / 3740.417 1530 / 1530 Weight last 48 hrs Weight 99.79 kg Physical Exam Narrative: EXAM NARRATIVE: General: No acute distress, AO x3, skin warm and dry, fidgety mildly agitated HEENT: PERRLA, pupils bilaterally equal and reactive Chest: Normal vesicular breath sounds, no added sounds, equal good air entry bilaterally CVS: S1-S2 regular, pansystolic murmur in the tricuspid area, soft MDM at tricuspid area, no tachycardia, no gallops, no rubs Abdomen: Soft, nontender, no organomegaly, bowel sounds present Neuro: No focal deficits, no facial deformity, AO x3, power 5/5 in all limbs Data : 12/12/20 05:02 12/12/20 05:02 Micro: Microbiology 12/11/20 01:20 Blood Culture - Preliminary Blood Staphylococcus aureus 12/11/20 00:32 Blood Culture - Preliminary Blood Staphylococcus aureus 12/11/20 18:52 Blood Culture - Preliminary Blood 12/11/20 18:42 Blood Culture - Preliminary Blood 12/11/20 13:41 Urine Culture - Preliminary Urine,Clean Catch Laboratory Results WBC 14.0 10^3/uL (4.0-10.0) H 12/12/20 05:02 Corrected WBC Cancelled 12/11/20 00:32 RBC 4.55 10^6/uL (4.1-5.3) 12/12/20 05:02 Hgb 14.0 g/dL (11.7-16.6) 12/12/20 05:02 Hct 41.3 % (42.0-52.0) L 12/12/20 05:02 MCV 90.8 fL (80-94) 12/12/20 05:02 MCH 30.8 pg (28.0-34.0) 12/12/20 05:02 MCHC 33.9 g/dL (30.0-36.0) 12/12/20 05:02 RDW 13.5 % (12.1-15.1) 12/12/20 05:02 Plt Count 158 10^3/cmm (130-400) 12/12/20 05:02 MPV 9.6 fL (7.4-10.4) 12/12/20 05:02 Gran % Cancelled 12/11/20 00:32 Neut % (Auto) 86.1 % 12/12/20 05:02 Lymph % (Auto) 7.3 % 12/12/20 05:02 [place] % (Auto) 4.0 % 12/12/20 05:02 Eos % (Auto) 1.2 % 12/12/20 05:02 Baso % (Auto) 0.5 % 12/12/20 05:02 Neut # (Auto) 12.06 10^3/uL (1.8-7.7) H 12/12/20 05:02 Lymph # (Auto) 1.0 10^3/uL (0.8-4.8) 12/12/20 05:02 [place] # (Auto) 0.6 10^3/uL (0.2-0.9) 12/12/20 05:02 Eos # (Auto) 0.2 10^3/uL (0.0-0.8) 12/12/20 05:02 Baso # (Auto) 0.1 10^3/uL (0.0-0.1) 12/12/20 05:02 Absolute Gran (auto) Cancelled 12/11/20 00:32 Nucleated RBC % (auto) 0 % 12/12/20 05:02 Nucleated RBCs # 0.0 /100WBC 12/12/20 05:02 Sodium 136 mmol/L (136-145) 12/12/20 05:02 Potassium 3.6 mmol/L (3.5-5.1) 12/12/20 05:02 Chloride 106 mmol/L (98-107) 12/12/20 05:02 Carbon Dioxide 18 mmol/L (22-29) L 12/12/20 05:02 Anion Gap 15.6 (5-19) 12/12/20 05:02 BUN 17 mg/dL (6-20) 12/12/20 05:02 Creatinine 1.3 mg/dL (0.7-1.2) H 12/12/20 05:02 GFR Calculation 59.7 mL/min (90-130) L 12/12/20 05:02 Glucose 103 mg/dL (65-115) 12/12/20 05:02 Calculated Osmolality 284 mOsm/kg (285-295) L 12/12/20 05:02 Lactic Acid 1.3 mmol/L (0.5-2.2) 12/12/20 05:02 Lactate 3.6 mmol/L (0.5-2.2) H 12/11/20 00:32 Calcium 7.8 mg/dL (8.5-10.5) L 12/12/20 05:02 Magnesium 1.6 mg/dL (1.7-2.3) L 12/12/20 05:02 Iron 10 ug/dL (59-158) L 12/11/20 00:32 TIBC 270 mcg/dl 12/11/20 00:32 % Saturation 3.7 % (20-50) L 12/11/20 00:32 Unsat Iron Binding 260 ug/dL (112-347) 12/11/20 00:32 Total Bilirubin 0.9 mg/dL (0.15-1.2) 12/12/20 05:02 AST 42 U/L (0-40) H 12/12/20 05:02 ALT 29 U/L (0-41) 12/12/20 05:02 Alkaline Phosphatase 62 IU/L (40-130) 12/12/20 05:02 C-Reactive Protein 32.8 mg/L (0.0-4.9) H 12/11/20 00:32 NT-Pro-B Natriuret Pep 1626 pg/mL (0-125) H 12/11/20 00:32 Total Protein 6.4 g/dL (6.6-8.7) L 12/12/20 05:02 Albumin 3.3 g/dL (3.5-5.2) L 12/12/20 05:02 Globulin 3.1 g/dL (1.3-4.6) 12/12/20 05:02 Procalcitonin 17.73 ng/mL (0-0.5) H 12/12/20 05:02 TSH 0.18 uIU/mL (0.27-4.20) L 12/11/20 00:32 Free T4 1.02 ng/dL (0.82-1.77) 12/12/20 05:02 Free T3 1.9 PG/ML (2.0-4.4) L 12/12/20 05:02 Urine Color Dark yellow (Yellow) 12/11/20 13:41 Urine Appearance Clear (CLEAR) 12/11/20 13:41 Urine pH 5 (5-7) 12/11/20 13:41 Ur Specific [place] 1.020 (1.005-1.030) 12/11/20 13:41 Urine Protein Trace (Negative) 12/11/20 13:41 Urine Glucose (UA) Norm (Normal) 12/11/20 13:41 Urine Ketones Negative (Negative) 12/11/20 13:41 Urine Blood Neg (Negative) 12/11/20 13:41 Urine Nitrate Negative (Negative) 12/11/20 13:41 Urine Bilirubin 1+ (Negative) H 12/11/20 13:41 Urine Urobilinogen 1 mg/dL (Negative) H 12/11/20 13:41 Ur Leukocyte Esterase Negative (Negative) 12/11/20 13:41 Urine RBC None /hpf (0-2) 12/11/20 13:41 Urine WBC Rare /hpf (0-5) 12/11/20 13:41 Ur Eosinophil Smear 0 (0-0) 12/11/20 13:41 Ur Squamous Epith Cells Rare /hpf (0-5) 12/11/20 13:41 Amorphous Sediment Not Reportable 12/11/20 13:41 Urine Bacteria 1+ /hpf (NONE) H 12/11/20 13:41 Urine Mucus 1+ /hpf 12/11/20 13:41 Urine Eosinophils No eosinophils seen 12/11/20 13:41 Urine Creatinine 302 mg/dL (39-259) H 12/11/20 13:41 Urine Opiates Screen Positive ng/mL (Negative) H 12/11/20 13:41 Ur Barbiturates Screen Negative ng/mL (Negative) 12/11/20 13:41 Ur Phencyclidine Scrn Negative ng/mL (Negative) 12/11/20 13:41 Ur Amphetamines Screen Positive ng/mL (Negative) H 12/11/20 13:41 U Benzodiazepines Scrn Negative ng/mL (Negative) 12/11/20 13:41 Urine Cocaine Screen Negative ng/mL (Negative) 12/11/20 13:41 U Marijuana (THC) Screen Negative ng/mL (Negative) 12/11/20 13:41 Influenza Type A Ag Negative (Negative) 12/11/20 00:30 Influenza Type B Ag Negative (Negative) 12/11/20 00:30 SARS-CoV-2 Ag (Rapid) Negative (Negative) 12/11/20 00:30 Impressions Chest X-Ray 12/10/20 23:53 IMPRESSION: No acute disease. Abdomen/Pelvis CT 12/11/20 01:13 IMPRESSION: 1. Fatty infiltration of the liver. 2. 2 mm nonobstructing right renal pelvis stone. Radiation Dose CTDIVOL = (mGy): DLP = 1549.18 (mGy-cm) Echocardiogram: CONCLUSIONS 1-Normal left ventricular cavity size. Normal left ventricular systolic function. Left ventricular ejection fraction is estimated at 55 %. Normal diastolic function. 2-Bioprosthetic tricuspid valve sitting in normal position, there appeared to be thickening and sub prosthetic valve apparatus funky movement suspicious for vegetation. Clinical correlation advised further exploration with transesophageal echocardiogram recommend. 3-No more valvular abnormality observed 4-There is no pericardial effusion. 5-Right atrial pressure is around 15 mm of mercury. 6-There are no prior Trans echocardiogram studies to compare. Sal Myers MD (Electronically Signed) Final Date: 11 December 2020 14:33 A&P Assessment and plan (1) Bacteremia due to Staphylococcus aureus: Status: Acute (2) Infective endocarditis: Status: Acute (3) Sepsis: Status: Acute Qualifiers: Sepsis acute organ dysfunction status: unspecified Sepsis type: sepsis due to unspecified organism Qualified Code(s): A41.9 - Sepsis, unspecified organism (4) Fever: Status: Acute (5) IV drug abuse: Status: Acute Additional A&P Information 45 year old male with past medical history of IV drug use, history of infective endocarditis and bioprosthetic tricuspid valve replacement in 2019 who presented to emergency room due to fever which started several days ago. Staphylococcal bacteremia: Sepsis: Secondary to infective endocarditis: Echocardiogram done yesterday shows an EF 55% with normal diastolic dysfunction, bioprosthetic tricuspid valve sitting in proper position with a thickening at subprosthetic valve apparatus funky movement suspicious for vegetation. We will consult cardiology for ANDREINA. Patient's blood cultures on admission positive for staph aureus. Repeat blood culture from yesterday also positive. Repeat blood cultures. For now continue with vancomycin and Zosyn. Awaiting sensitivities. Patient will most likely need IV antibiotics for 6 weeks after last positive blood culture versus possible repeat surgery in view of bioprosthetic valve. Normal saline at 100 cc/h. Keep mean arterial pressure around 65. Monitor for fluid overload or hemodynamic instability. KINZA: Most likely secondary dehydration versus sepsis. Medical reconciliation done for nephrotoxic drugs. IV drug abuse: Monitor for withdrawal. Ativan 0.5 IV every 8 hours as needed. DVT prophylaxis. Heparin. Cardiac diet CODE STATUS. The patient wants to be full code. The plan of care was discussed with the patient. He verbalized understanding and agreement. Attestations Medical Necessity Statement*: Duration of management of staphylococcal bacteremia, sepsis because of infective endocarditis Time Spent in Patient Care: Greater than 35 minutes (>than 50% of time spent in counselling and/or direct pt care on unit). Coding Level of Care Code Acute Cardiovascular Surgeon for [facility] Sheryl Diagnoses Bacteremia due to Staphylococcus aureus R78.81; B95.61 Infective endocarditis I33.0 Sepsis A41.9 Sepsis acute organ dysfunction status: unspecified Sepsis type: sepsis due to unspecified organism Fever R50.9 IV drug abuse F19.10
[2020-12-12] MEDS: vancomycin 1,500 MG/300 ML PIGGYBACK 200 MG IV (15:03)
--- NOTE | 2020-12-12 17:24 | PM.CONSULT ---
Providers/Reason For Consult Consulting Physican/Specialty*: Dr. 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 Augustin at [facility]. It seems like in spite of that patient has continued to use IV methamphetamine with last used about a week ago per patient. For the last few days he has been having fever chills fatigue and presented to the ER for further evaluation. No hematemesis nausea vomiting, melena hematochezia or hematuria. He lives with his girlfriend. His echocardiogram that was technically difficult showed possible vegetation on tricuspid prosthesis. I have been asked to evaluate the patient for transesophageal echocardiogram. Patient seems to be very drowsy and answering questions with yes or no. He wants to know when he can go home. Review of Systems General: Reports: 10 or more systems reviewed and unremarkable except in HPI and below Meds/Allergies Home Medications and Allergies Home Medications Medication Instructions Recorded Confirmed Last Taken Type No Known Home Medications 12/10/20 12/10/20 Unknown History Allergies Allergy/AdvReac Type Severity Reaction Status Date / Time No Known Allergies Allergy Verified 12/10/20 23:48 Current Medications Current Medications Generic Name Dose Route Start Last Admin Trade Name Freq PRN Reason Stop Dose Admin Acetaminophen 650 mg 12/11/20 03:55 12/12/20 11:30 Acetaminophen 325 Mg Tablet PO 650 mg Q6H PRN Administration Mild/Mod Pain Or Temp >/= 101 Famotidine 20 mg 12/11/20 04:00 12/12/20 17:09 Famotidine 20 Mg/2 Ml Inj IVP 20 mg Q12H LIZZY Administration Heparin Sodium (Beef Lung) 5,000 unit 12/12/20 15:30 12/12/20 17:14 Heparin 5,000 Unit/Ml Inj 1 Ml SUBCUT Not Given Q8H LIZZY Sodium Chloride 1,000 mls @ 100 mls/hr 12/11/20 04:00 12/12/20 08:50 Sodium Chloride 0.9% IV 100 mls/hr .Q10H LIZZY Administration Piperacillin Sod/Tazobactam 50 mls @ 12.5 mls/hr 12/11/20 09:30 12/12/20 17:09 Sod 3.375 gm/ Sodium Chloride IV 12.5 mls/hr Q8H LIZZY Administration Protocol Vancomycin/PEG/NADA/Lysine/Water 1,500 mg in 300 mls @ 200 mls/hr 12/11/20 20:00 12/12/20 17:10 Vancocin IV Infused Q18H LIZZY Infusion Lorazepam 0.5 mg 12/12/20 12:15 12/12/20 12:25 Lorazepam 2 Mg/Ml Inj 1 Ml IVP 0.5 mg Q8H PRN Administration ANXIETY PFSH Acute PFSH: Medical History 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 Surgical History (Updated 12/12/20 @ 17:31 by Jessica Ya MD) H/O tricuspid valve replacement Vitals/I&O/Wt Last Vital Signs Temp 101.5 F H 12/12/20 11:22 Pulse 81 12/12/20 14:00 Resp 18 12/12/20 11:22 BP 108/69 12/12/20 11:22 Pulse Ox 98 12/12/20 11:22 12/12/20 12/12/20 12/12/20 06:59 14:59 22:59 Intake Total 1730 / 4040.417 1530 / 1530 300 / 1830 Balance 1730 / 3740.417 1530 / 1530 300 / 1830 Weight last 48 hrs Weight 220 lb Physical Exam Narrative: EXAM NARRATIVE: GENERAL: Obese man lying in bed in no acute distress HEENT: Extraocular movement intact. Pupils equal round reactive to light. No pallor or icterus. NECK: central trachea, No JVD. No carotid bruit. CARDIOVASCULAR SYSTEM: S1-S2 regular. No S3 or S4 present. No murmur rubs or gallops. RESPIRATORY SYSTEM: Chest clear to auscultation. No wheezes rhonchi or rubs heard. No use of accessory muscles. ABDOMEN: Soft, nontender and nondistended. Normal bowel sounds present. EXTREMITIES: No cyanosis or clubbing. No edema. No signs of chronic venous insufficiency. WELDING ESTIMATOR: Patient is alert oriented ?3. No focal neurological deficits. SKIN: Normal turgor and temperature. Data Micro: Micro: Microbiology 12/11/20 16:40 MRSA Culture - Fin al Nose 12/11/20 01:20 Blood Culture - Pr eliminary Blood Staphylococcus aureus 12/11/20 00:32 Blood Culture - Pr eliminary Blood Staphylococcus aureus 12/11/20 18:52 Blood Culture - Pr eliminary Blood 12/11/20 18:42 Blood Culture - Pr eliminary Blood 12/11/20 13:41 Urine Culture - Pr eliminary Urine,Clean Catch Other Data: Attestation for Other Data: I personally reviewed and interpreted the following: Other data: Transthoracic echocardiogram 11 December 2020 CONCLUSIONS 1-Normal left ventricular cavity size. Normal left ventricular systolic function. Left ventricular ejection fraction is estimated at 55 %. Normal diastolic function. 2-Bioprosthetic tricuspid valve sitting in normal position, there appeared to be thickening and sub prosthetic valve apparatus funky movement suspicious for vegetation. Clinical correlation advised further exploration with transesophageal echocardiogram recommend. 3-No more valvular abnormality observed 4-There is no pericardial effusion. 5-Right atrial pressure is around 15 mm of mercury. 6-There are no prior Trans echocardiogram studies to compare. A&P Assessment and plan (1) Bacteremia due to Staphylococcus aureus: 2 cultures growing staph aureus from 12/11/2020. -continues to spike with a T-max of 102.4. -We will proceed with transesophageal echocardiogram tomorrow. Risks and benefits were discussed with the patients. Alternate management options were discussed with the patient as well. Possible complications were reviewed with the patient as well. I spoke to patient's mother Avril José as well. She was listed as patient's next of kin on file. Status: Acute (2) IV drug abuse: Status: Acute (3) Endocarditis of tricuspid valve: History of endocarditis of tricuspid valve in July 2019 Status: Acute (4) H/O tricuspid valve replacement: Status: Acute Consult Attestations Time Spent in Patient Care: Greater than 35 minutes (>than 50% of time spent in counselling and/or direct pt care on unit). Coding Level of Care Code Acute Engine Mechanic for Cesar Saucedo Diagnoses Bacteremia due to Staphylococcus aureus R78.81; B95.61 IV drug abuse F19.10 Endocarditis of tricuspid valve I07.9 H/O tricuspid valve replacement Z95.2
[2020-12-13] VITALS (19 sets, daily range): BP systolic 77–113; BP diastolic 45–79; PULSE 61–117; RESP 17–140; TEMP 36.1–39.7; O2SAT 93–100
[2020-12-13] MEDS: acetaminophen 325 mg Tablet 650 MG PO ×2 (00:53→23:15)
[2020-12-13] MEDS: piperacillin-tazobactam 3.375 GM in sodium chloride 0.9% (plus) 50 ML IV (01:02)
--- NOTE | 2020-12-13 02:57 | PC.NURSE ---
Ativan given This nurse went in room to check on patient and he appeared to be restless, continually shaking his legs, and anxious asking for more water approximately every 30 minutes.
[2020-12-13] MEDS: famotidine 20 mg/2 mL INJ IVP (03:57)
[2020-12-13] MEDS: sodium chloride 0.9% 1,000 ML 100 ML IV (06:34)
[2020-12-13] MEDS: heparin 5,000 unit/mL INJ 1 mL 5000 UNIT SUBCUT (06:38)
[2020-12-13 07:05] LABS: Basophils % 0.4 %; Hematocrit 39.9 % (42.0-52.0); Hemoglobin 13.6 g/dL (11.7-16.6); Lymphocytes # 1.1 10^3/uL (0.8-4.8); Lymphocytes % 11.1 %; Mean Corpuscular HGB Conc 34.1 g/dL (30.0-36.0); Mean Corpuscular Hemoglobin 30.4 pg (28.0-34.0); Mean Corpuscular Volume 89.1 fL (80-94); Mean Platelet Volume 9.6 fL (7.4-10.4); Monocytes # 0.7 10^3/uL (0.2-0.9); Monocytes % 6.9 %; Neutrophils # 8.32 10^3/uL (1.8-7.7); Neutrophils % 81.2 %; Nucleated Red Blood Cells % 0 %; Platelet Count 131 10^3/cmm (130-400); Red Blood Count 4.48 10^6/uL (4.1-5.3); Red Cell Distribution Width 13.2 % (12.1-15.1); White Blood Count 10.3 10^3/uL (4.0-10.0)
[2020-12-13 07:21] LABS: Alanine Aminotransferase 16 U/L (0-41); Albumin Level 3.4 g/dL (3.5-5.2); Alkaline Phosphatase 61 IU/L (40-130); Anion Gap 15.4 (5-19); Aspartate Amino Transferase 33 U/L (0-40); Blood Urea Nitrogen 9 mg/dL (6-20); Calcium 8.3 mg/dL (8.5-10.5); Carbon Dioxide 19 mmol/L (22-29); Chloride 103 mmol/L (98-107); Globulin 3.2 g/dL (1.3-4.6); Glomerular Filtration Rate 80.8 mL/min (90-130); Glucose 94 mg/dL (65-115); Osmolality Calculated 276 mOsm/kg (285-295); Potassium 3.4 mmol/L (3.5-5.1); Sodium 134 mmol/L (136-145); Total Protein 6.6 g/dL (6.6-8.7)
[2020-12-13 07:26] LABS: Vancomycin Trough 8.1 ug/mL (10-15)
--- NOTE | 2020-12-13 09:49 | PC.NURSE ---
LETHARGY LETHARGY NOTED THROUGHOUT THIS NURSE'S SHIFT - DR ARCE NOTIFIED - NEW ORDERS REC'D - PT WILL AWAKEN AND RESPOND APPROPRIATELY TO VERBAL STIMULI
--- NOTE | 2020-12-13 10:14 | CT_ITS ---
WS: [id number] CT HEAD WITH AND WITHOUT CONTRAST HISTORY: r/o septic emboli TECHNIQUE: Noncontrast 2.5 mm axial images obtained from the vertex to the skull base. Additional estiven ging performed at 2.5 mm axial images status post IV contrast. Bone and soft tissue windows are revie wed. All CT scans at [facility] use at least one of these dose optimization techniques: a utomated exposure control; mA and/or kV adjustment per patient size (includes targeted exams where do se is matched to clinical indication); or iterative reconstruction. CONTRAST: Visipaque 320; 75 mL IV. DLP: 1403.88 mGy.cm COMPARISON: 06/05/2018 No acute intracranial hemorrhage, edema or midline shift. No enhancing mass or vascular malformations identified. No enhancing cavitary lesions or cystic bre s. Dural venous sinuses are normally enhancing. Visualized squaxin of [place] is unremarkable. Paranasal sinuses as visualized: Mild mucoperiosteal thickening in the RIGHT maxillary sinus with no air-fluid levels. Mild bilateral ethmoid air cell disease. Mastoid air cells: Clear. Calvarium and scalp: Intact. CT/CT head wo/w con [id number] IMPRESSION: 1. No acute intracranial hemorrhage or edema. 2. No enhancing masses or evidence for septic emboli. 3. Minimal RIGHT maxillary and ethmoid air cell disease.
--- NOTE | 2020-12-13 10:14 | CT_ITS ---
WS: [id number] CT MYELOGRAM LUMBAR SPINE with contrast. HISTORY: possible abscess TECHNIQUE: Contiguous 2.5 mm axial imaging performed from T12 through the mid sacral level. Bone and soft tissue windows reviewed. Sagittal and coronal reformats are submitted and reviewed. DLP: 2393.5 mGy.cm Contrast: Visipaque [address] scans at [facility] use at least one of these dose optimization techniques: automat ed exposure control; mA and/or kV adjustment per patient size (includes targeted exams where dose is matched to clinical indication); or iterative reconstruction. COMPARISON: 08/07/2010 Normal posterior lumbar alignment. Very slight anterior wedging of L1 and L2. Moderate chronic endpla te changes at L1-2 with Schmorl's nodes and osteophyte formation. Smaller osteophytes at L3 and L4. P ars defect on the RIGHT at L5. L1-L2: Mild annular disc bulging without significant stenosis. No adjacent inflammatory changes. L2-L3: Moderate diffuse annular disc bulging with encroachment upon the ventral thecal sac and subart icular recesses. Mild bilateral subarticular recess and foraminal stenosis. L3-L4: Mild diffuse annular disc bulging with very mild bilateral foraminal narrowing. L4-L5: Diffuse annular disc bulging with a central disc protrusion which extends greatest to the LEFT . Deformity the ventral thecal sac with narrowing of the subarticular recesses and foramen. Very slig ht displacement of the LEFT L5 nerve root. L5-S1: Mild annular disc bulge. No osseous destruction of the visualized sacrum. Small amount of degenerative air in the SI joints. N o enhancing masses. No adjacent inflammatory changes in the paraspinal soft tissues. CT/CT lumbar spine w con [id number] IMPRESSION: 1. No evidence for acute inflammatory changes within the lumbar spine by CT. 2. Mild narrowing of the central canal and subarticular recesses and foramen a t L4-5 with associated disc protrusion. 3. Very mild displacement of the LEFT L5 nerve root by disc protrusion. 4. Mild bilateral subarticular recess and foraminal stenosis at L2-3.
--- NOTE | 2020-12-13 10:16 | PM.PN ---
Subjective Subjective: Interval history: No acute events overnight. Patient blood pressure is a lot better. On examination he is restless, fidgety, complaining of pain all over his body. T-max in last 24 hours 101.5 Fahrenheit. Blood cultures from admission and one sent yesterday positive for GPC's. No nausea or vomiting overnight. Denies headache. Denies chest pain or palpitations. Vitals/I&O/Wt Last Vital Signs Temp 101.4 F H 12/13/20 07:41 Pulse 72 12/13/20 07:41 Resp 17 12/13/20 07:41 BP 109/71 12/13/20 07:41 Pulse Ox 97 12/13/20 07:41 12/12/20 12/13/20 12/13/20 22:59 06:59 14:59 Intake Total 1830 / 3360 908.333 / 4268.333 Balance 1830 / 3360 908.333 / 4268.333 Physical Exam Narrative: EXAM NARRATIVE: General: No acute distress, AO x3, skin warm and dry, fidgety mildly agitated HEENT: PERRLA, pupils bilaterally equal and reactive Chest: Normal vesicular breath sounds, no added sounds, equal good air entry bilaterally CVS: S1-S2 regular, pansystolic murmur in the tricuspid area, soft MDM at tricuspid area, no tachycardia, no gallops, no rubs Abdomen: Soft, nontender, no organomegaly, bowel sounds present Neuro: No focal deficits, no facial deformity, AO x3, power 5/5 in all limbs Data : 12/13/20 07:00 12/13/20 07:00 Micro: Microbiology 12/11/20 13:41 Urine Culture - Final Urine,Clean Catch 12/11/20 16:40 MRSA Culture - Final Nose 12/11/20 01:20 Blood Culture - Preliminary Blood Staphylococcus aureus 12/11/20 00:32 Blood Culture - Preliminary Blood Staphylococcus aureus 12/11/20 18:52 Blood Culture - Preliminary Blood 12/11/20 18:42 Blood Culture - Preliminary Blood Laboratory Results Impressions Chest X-Ray 12/10/20 23:53 IMPRESSION: No acute disease. Abdomen/Pelvis CT 12/11/20 01:13 IMPRESSION: 1. Fatty infiltration of the liver. 2. 2 mm nonobstructing right renal pelvis stone. Radiation Dose CTDIVOL = (mGy): DLP = 1549.18 (mGy-cm) Head CT 12/13/20 10:14 IMPRESSION: 1. No acute intracranial hemorrhage or edema. 2. No enhancing masses or evidence for septic emboli. 3. Minimal RIGHT maxillary and ethmoid air cell disease. Lumbar Spine CT 12/13/20 10:14 IMPRESSION: 1. No evidence for acute inflammatory changes within the lumbar spine by CT. 2. Mild narrowing of the central canal and subarticular recesses and foramen at L4-5 with associated disc protrusion. 3. Very mild displacement of the LEFT L5 nerve root by disc protrusion. 4. Mild bilateral subarticular recess and foraminal stenosis at L2-3. A&P Assessment and plan (1) Bacteremia due to Staphylococcus aureus: Status: Acute (2) Endocarditis of tricuspid valve: Status: Acute (3) Sepsis: Status: Acute Qualifiers: Sepsis acute organ dysfunction status: unspecified Sepsis type: sepsis due to unspecified organism Qualified Code(s): A41.9 - Sepsis, unspecified organism (4) Fever: Status: Acute (5) IV drug abuse: Status: Acute (6) H/O tricuspid valve replacement: Status: Acute Additional A&P Information 45 year old male with past medical history of IV drug use, history of infective endocarditis and bioprosthetic tricuspid valve replacement in 2019 who presented to emergency room due to fever which started several days ago. Sepsis secondary to staphylococcal bacteremia: Secondary to infective endocarditis as seen on echocardiogram with a history of infective endocarditis of tricuspid valve in 2019 requiring bioprosthetic tricuspid valve replacement. Patient to undergo ANDREINA today. Because patient is drowsy and complaining of back pain will get CT head to rule out septic emboli. CT back to rule out discitis versus vertebral abscess. Blood culture positive for MRSA. Repeat blood cultures. Continue with vancomycin keeping trough more than 15. Add gentamicin for synergistic value. Stop Zosyn. Normal saline at 125 cc/h. Keep mean arterial pressure around 65. Monitor for fluid overload or hemodynamic instability. Given continuous persistent MRSA bacteremia, infective endocarditis of bioprosthetic valve, patient requiring ongoing long-term outpatient antibiotic in setting of IV drug abuse will consult ID for further recommendations. KINZA: Resolved. Most likely secondary dehydration versus sepsis. Medical reconciliation done for nephrotoxic drugs. IV drug abuse: Monitor for withdrawal. Ativan 0.5 IV every 8 hours as needed. DVT prophylaxis. Heparin. Cardiac diet CODE STATUS. The patient wants to be full code. The plan of care was discussed with the patient. He verbalized understanding and agreement. Attestations Medical Necessity Statement*: Requires further hospitalization for management of staphylococcal bacteremia in setting of bioprosthetic tricuspid valve endocarditis Time Spent in Patient Care: Greater than 35 minutes (>than 50% of time spent in counselling and/or direct pt care on unit). Coding Level of Care Code Acute Window Covering Sales Consultant for g Fwd Diagnoses Bacteremia due to Staphylococcus aureus R78.81; B95.61 Endocarditis of tricuspid valve I07.9 Sepsis A41.9 Sepsis acute organ dysfunction status: unspecified Sepsis type: sepsis due to unspecified organism Fever R50.9 IV drug abuse F19.10 H/O tricuspid valve replacement Z95.2
[2020-12-13] MEDS: iodixanol 320 mg/mL 100mL Btl IV ×2 (10:48→10:51)
[2020-12-13 10:50] LABS: Amphetamines Screen Urine Positive (Negative); Barbiturates Screen Urine Negative (Negative); Benzodiazepines Screen Urine Negative (Negative); Cocaine Screen Urine Negative (Negative); Opiate Screen Urine Negative (Negative); PCP Screen Urine Negative (Negative); THC Screen Urine Negative (Negative)
[2020-12-13] MEDS: sodium chloride 0.9% 1,000 ML 30 ML IV (11:47)
--- NOTE | 2020-12-13 12:00 | USCV_ITS ---
Radu Olivera Age: 45 Gender: M : 1975 Exam Date: 12/13/2020 12:32 Ordering Phys: Jessica Ya MD Technologist: Yoselin Jackson Exam Location: [facility] [place] Indication: INFECTIOUS ENDOCARDITIS BP: 104 / 57 HR: 81 Rhythm: Sinus Technical Quality: Good MEASUREMENTS (Male / Female) Normal Values Medications Patient given IV sedation by anesthesia service, for details please refer to the anesthesi Complications Intubation easy. Attempts x 1. No blood on probe post procedure. Proc. Components Multiple images were obtained at mid oeophageal and trans grastic levels. FINDINGS Left Ventricle Normal left ventricular size, systolic function and wall thickness, with no regional wall motion abnormalities. Left ventricular ejection fraction is estimated at 55 %. Right Ventricle Normal right ventricular size and systolic function. Right Atrium Normal right atrial size. Left Atrium Normal left atrial size. LA Appendage Normal left atrial appendage. Normal flow velocities in the left atrial appendage. No thrombus visualized in the left atrial appendage. IA Septum Thickening of interatrial atrial septum (h/o surgical closure of PFO with sutures ). No ASD or PFO by color doppler or agitated saline study. Mitral Valve Structurally normal mitral valve. No mitral valve stenosis. Trace mitral valve regurgitation. Aortic Valve Structurally normal trileaflet aortic valve. No aortic valve stenosis. No aortic valve regurgitation. Tricuspid Valve [address] valve in tricuspid position well seated. Thickened and somewhat mobile echodensity noted on leaflet of prosthetic valve. Small globular somewhat mobile echodensity noted in right ventricle as well. This probably is suggestive of prosthetic valve endocarditis. Trace-mild eccentric tricuspid valve regurgitation. No significant paravalvular regurgitation. Pulmonic Valve Structurally normal pulmonic valve. Trace pulmonary valve regurgitation. Pericardium No pericardial effusion. Aorta Normal size aortic root and proximal ascending aorta. No aortic dilation, aneurysm or dissection. CONCLUSIONS 1. This exam was completed on a [employer] Aplio 500 with a PST- 30BT Multi-Frequency Sector Transducer. 2. Normal left ventricular size, systolic function and wall thickness, with no regional wall motion abnormalities. Left ventricular ejection fraction is estimated at 55 %. 3. [address] valve in tricuspid position well seated. Thickened and somewhat mobile echodensity noted on leaflet of prosthetic valve. Small globular somewhat mobile echodensity noted in right ventricle as well. 4. Trace-mild eccentric tricuspid valve regurgitation. No significant paravalvular regurgitation. 5. This probably is suggestive of prosthetic valve endocarditis. Clinical correlation is advised. Jessica Ya MD Edited by: CV Library Serials Assistant (Electronically Signed) Final Date: 14 December 2020 07:38 Amended: 20 Dec 2020 14:00 C
--- NOTE | 2020-12-13 12:18 | ANES.PREANE2 ---
Pre-Anesthetic Assessment Pre-Anesthetic Assessment: Height/Weight: Height 1.78 m Weight 99.79 kg Temp Pulse Resp BP Pulse Ox 103.1 F H 98 20 H 107/79 95 12/13/20 11:37 12/13/20 11:37 12/13/20 11:37 12/13/20 11:37 12/13/20 11:37 Proposed Procedure: Operation Date: 12/13/20 12:00 Proposed Procedures p ANDREINA(Not Applicable) - Jessica Ya MD Familial anesthetic complications: denies issues Last intake: 12/13/20 solid 1800, liquid 2300 Social: Social History: Tobacco and No alcohol Packs per day: 1/2 Pack years: 20 Comment: IV Drug use ( 2 weeks prior) Methanphetimine Exam: Pre-Anes Outpt Exam: alert, oriented x 3 and clear to auscultation bilaterally Airway: Submandibular: WNL Cervical ROM: WNL MP: 2 Dentition: Chipped and Loose History/ROS: No significant history except as noted Pulmonary: Pulmonary: None reported CV/HEM: CV/HEM: None reported Comments: endocarditis. : : None reported Hepatic: Hepatic: None reported Comments: Hepatitis C underwent treatment. GI: GI: None reported Musc/skel: Musc/skel: Lower Back Pain Neuropsych: Neuropsych: Anxiety and Depression Anesthetic Plan: ASA status: 3 Anesthesia: Anesthesia Evaluation and MAC Risk of > 500 ml blood loss (7ml/kg in children): No Meds/Allergies Current Medications: Current Medications Generic Name Dose Route Start Last Admin Trade Name Freq PRN Reason Stop Dose Admin Acetaminophen 650 mg 12/11/20 03:55 12/13/20 00:53 Acetaminophen 32 5 Mg Tablet PO 650 mg Q6H PRN Administration Mild/Mod Pain Or Temp >/= 101 Famotidine 20 mg 12/11/20 04:00 12/13/20 03:57 Famotidine 20 Mg /2 Ml Inj IVP 20 mg Q12H LIZZY Administration Heparin Sodium (Be ef Lung) 5,000 unit 12/12/20 15:30 12/13/20 06:38 Heparin 5,000 Un it/Ml Inj 1 Ml SUBCUT 5,000 unit Q8H LIZZY Administration Sodium Chloride 1,000 mls @ 100 m ls/hr 12/11/20 04:00 12/13/20 06:34 Sodium Chloride 0.9% IV 100 mls/hr .Q10H LIZZY Administration Gentamicin Sulfate 500 mg/ 112.5 mls @ 100 m ls/hr 12/13/20 09:00 12/13/20 08:32 Sodium Chloride IV 100 mls/hr Q24H LIZZY Administration Vancomycin HCl 2,0 00 mg/ 500 mls @ 250 mls /hr 12/13/20 10:30 12/13/20 11:02 Sodium Chloride IV 250 mls/hr Q12H LIZZY Administration Sodium Chloride 1,000 mls @ 30 ml s/hr 12/13/20 11:45 12/13/20 11:47 Sodium Chloride 0.9% IV 12/14/20 11:44 30 mls/hr .Q24H LIZZY Administration Lorazepam 0.5 mg 12/12/20 12:15 12/12/20 21:59 Lorazepam 2 Mg/M l Inj 1 Ml IVP 0.5 mg Q8H PRN Administration ANXIETY PFSH Anesthesia PFSH: Medical History 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 Surgical History (Updated 12/12/20 @ 17:31 by Jessica Ya MD) H/O tricuspid valve replacement Data Anesthesia CBC & Chem 7: 12/13/20 07:00 12/13/20 07:00 Other Labs: Laboratory Results - last 48 hr 12/11/20 12/11/20 12/11/20 00:32 00:32 13:41 WBC RBC Hgb Hct MCV MCH MCHC RDW Plt Count MPV Neut % (Auto) Lymph % (Auto) Frontier % (Auto) Eos % (Auto) Baso % (Auto) Neut # (Auto) Lymph # (Auto) Frontier # (Auto) Eos # (Auto) Baso # (Auto) Nucleated RBC % (auto) Nucleated RBCs # Sodium Potassium Chloride Carbon Dioxide Anion Gap BUN Creatinine GFR Calculation Glucose Calculated Osmolality Lactic Acid Calcium Magnesium Iron 10 L TIBC 270 % Saturation 3.7 L Unsat Iron Binding 260 Total Bilirubin AST ALT Alkaline Phosphatase NT-Pro-B Natriuret Pep 1626 H Total Protein Albumin Globulin Procalcitonin 32.74 H TSH 0.18 L Free T4 Free T3 Urine Color Dark yellow Urine Appearance Clear Urine pH 5 Ur Specific [place] 1.020 Urine Protein Trace Urine Glucose (UA) Norm Urine Ketones Negative Urine Blood Neg Urine Nitrate Negative Urine Bilirubin 1+ H Urine Urobilinogen 1 H Ur Leukocyte Esterase Negative Urine RBC None Urine WBC Rare Ur Eosinophil Smear Ur Squamous Epith Cells Rare Amorphous Sediment Not Reportable Urine Bacteria 1+ H Urine Mucus 1+ Urine Eosinophils Urine Creatinine Vancomycin Trough Urine Opiates Screen Ur Barbiturates Screen Ur Phencyclidine Scrn Ur Amphetamines Screen U Benzodiazepines Scrn Urine Cocaine Screen U Marijuana (THC) Screen 12/11/20 12/11/20 12/11/20 13:41 13:41 13:41 WBC RBC Hgb Hct MCV MCH MCHC RDW Plt Count MPV Neut % (Auto) Lymph % (Auto) Frontier % (Auto) Eos % (Auto) Baso % (Auto) Neut # (Auto) Lymph # (Auto) Frontier # (Auto) Eos # (Auto) Baso # (Auto) Nucleated RBC % (auto) Nucleated RBCs # Sodium Potassium Chloride Carbon Dioxide Anion Gap BUN Creatinine GFR Calculation Glucose Calculated Osmolality Lactic Acid Calcium Magnesium Iron TIBC % Saturation Unsat Iron Binding Total Bilirubin AST ALT Alkaline Phosphatase NT-Pro-B Natriuret Pep Total Protein Albumin Globulin Procalcitonin TSH Free T4 Free T3 Urine Color Urine Appearance Urine pH Ur Specific [place] Urine Protein Urine Glucose (UA) Urine Ketones Urine Blood Urine Nitrate Urine Bilirubin Urine Urobilinogen Ur Leukocyte Esterase Urine RBC Urine WBC Ur Eosinophil Smear 0 Ur Squamous Epith Cells Amorphous Sediment Urine Bacteria Urine Mucus Urine Eosinophils No eosinophils seen Urine Creatinine 302 H Vancomycin Trough Urine Opiates Screen Positive H Ur Barbiturates Screen Negative Ur Phencyclidine Scrn Negative Ur Amphetamines Screen Positive H U Benzodiazepines Scrn Negative Urine Cocaine Screen Negative U Marijuana (THC) Screen Negative 12/12/20 12/12/20 12/12/20 05:02 05:02 05:02 WBC 14.0 H RBC 4.55 Hgb 14.0 Hct 41.3 L MCV 90.8 MCH 30.8 MCHC 33.9 RDW 13.5 Plt Count 158 MPV 9.6 Neut % (Auto) 86.1 Lymph % (Auto) 7.3 Frontier % (Auto) 4.0 Eos % (Auto) 1.2 Baso % (Auto) 0.5 Neut # (Auto) 12.06 H Lymph # (Auto) 1.0 Frontier # (Auto) 0.6 Eos # (Auto) 0.2 Baso # (Auto) 0.1 Nucleated RBC % (auto) 0 Nucleated RBCs # 0.0 Sodium 136 Potassium 3.6 Chloride 106 Carbon Dioxide 18 L Anion Gap 15.6 BUN 17 Creatinine 1.3 H GFR Calculation 59.7 L Glucose 103 Calculated Osmolality 284 L Lactic Acid 1.3 Calcium 7.8 L Magnesium 1.6 L Iron TIBC % Saturation Unsat Iron Binding Total Bilirubin 0.9 AST 42 H ALT 29 Alkaline Phosphatase 62 NT-Pro-B Natriuret Pep Total Protein 6.4 L Albumin 3.3 L Globulin 3.1 Procalcitonin 17.73 H TSH Free T4 Free T3 Urine Color Urine Appearance Urine pH Ur Specific [place] Urine Protein Urine Glucose (UA) Urine Ketones Urine Blood Urine Nitrate Urine Bilirubin Urine Urobilinogen Ur Leukocyte Esterase Urine RBC Urine WBC Ur Eosinophil Smear Ur Squamous Epith Cells Amorphous Sediment Urine Bacteria Urine Mucus Urine Eosinophils Urine Creatinine Vancomycin Trough Urine Opiates Screen Ur Barbiturates Screen Ur Phencyclidine Scrn Ur Amphetamines Screen U Benzodiazepines Scrn Urine Cocaine Screen U Marijuana (THC) Screen 12/12/20 12/13/20 12/13/20 05:02 07:00 07:00 WBC 10.3 H RBC 4.48 Hgb 13.6 Hct 39.9 L MCV 89.1 MCH 30.4 MCHC 34.1 RDW 13.2 Plt Count 131 MPV 9.6 Neut % (Auto) 81.2 Lymph % (Auto) 11.1 Frontier % (Auto) 6.9 Eos % (Auto) 0.0 Baso % (Auto) 0.4 Neut # (Auto) 8.32 H Lymph # (Auto) 1.1 Frontier # (Auto) 0.7 Eos # (Auto) 0.0 Baso # (Auto) 0.0 Nucleated RBC % (auto) 0 Nucleated RBCs # 0.0 Sodium 134 L Potassium 3.4 L Chloride 103 Carbon Dioxide 19 L Anion Gap 15.4 BUN 9 Creatinine 1.0 GFR Calculation 80.8 L Glucose 94 Calculated Osmolality 276 L Lactic Acid Calcium 8.3 L Magnesium Iron TIBC % Saturation Unsat Iron Binding Total Bilirubin 1.0 AST 33 ALT 16 Alkaline Phosphatase 61 NT-Pro-B Natriuret Pep Total Protein 6.6 Albumin 3.4 L Globulin 3.2 Procalcitonin TSH Free T4 1.02 Free T3 1.9 L Urine Color Urine Appearance Urine pH Ur Specific [place] Urine Protein Urine Glucose (UA) Urine Ketones Urine Blood Urine Nitrate Urine Bilirubin Urine Urobilinogen Ur Leukocyte Esterase Urine RBC Urine WBC Ur Eosinophil Smear Ur Squamous Epith Cells Amorphous Sediment Urine Bacteria Urine Mucus Urine Eosinophils Urine Creatinine Vancomycin Trough Urine Opiates Screen Ur Barbiturates Screen Ur Phencyclidine Scrn Ur Amphetamines Screen U Benzodiazepines Scrn Urine Cocaine Screen U Marijuana (THC) Screen 12/13/20 12/13/20 07:00 10:15 WBC RBC Hgb Hct MCV MCH MCHC RDW Plt Count MPV Neut % (Auto) Lymph % (Auto) Frontier % (Auto) Eos % (Auto) Baso % (Auto) Neut # (Auto) Lymph # (Auto) Frontier # (Auto) Eos # (Auto) Baso # (Auto) Nucleated RBC % (auto) Nucleated RBCs # Sodium Potassium Chloride Carbon Dioxide Anion Gap BUN Creatinine GFR Calculation Glucose Calculated Osmolality Lactic Acid Calcium Magnesium Iron TIBC % Saturation Unsat Iron Binding Total Bilirubin AST ALT Alkaline Phosphatase NT-Pro-B Natriuret Pep Total Protein Albumin Globulin Procalcitonin TSH Free T4 Free T3 Urine Color Urine Appearance Urine pH Ur Specific [place] Urine Protein Urine Glucose (UA) Urine Ketones Urine Blood Urine Nitrate Urine Bilirubin Urine Urobilinogen Ur Leukocyte Esterase Urine RBC Urine WBC Ur Eosinophil Smear Ur Squamous Epith Cells Amorphous Sediment Urine Bacteria Urine Mucus Urine Eosinophils Urine Creatinine Vancomycin Trough 8.1 L Urine Opiates Screen Negative Ur Barbiturates Screen Negative Ur Phencyclidine Scrn Negative Ur Amphetamines Screen Positive H U Benzodiazepines Scrn Negative Urine Cocaine Screen Negative U Marijuana (THC) Screen Negative Micro: Microbiology 12/11/20 18:52 Blood Culture - Final Blood Methicillin Resis Staph Aureus 12/11/20 18:42 Blood Culture - Final Blood Methicillin Resis Staph Aureus 12/11/20 01:20 Blood Culture - Final Blood Methicillin Resis Staph Aureus 12/11/20 00:32 Blood Culture - Final Blood Methicillin Resis Staph Aureus 12/11/20 13:41 Urine Culture - Final Urine,Clean Catch 12/11/20 16:40 MRSA Culture - Final Nose Cardiac Studies: No Data to Display
--- NOTE | 2020-12-13 13:10 | P.PN_ITS ---
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 Farr at [facility]. He underwent ANDREINA. He wants to know when he can go home. Continues to spike fever. Medications: Reviewed: Yes Vitals/I&O/Wt Last Vital Signs Temp 103.1 F H 12/13/20 11:37 Pulse 98 12/13/20 11:37 Resp 20 H 12/13/20 11:37 BP 107/79 12/13/20 11:37 Pulse Ox 95 12/13/20 11:37 12/12/20 12/13/20 12/13/20 22:59 06:59 14:59 Intake Total 1830 / 3360 908.333 / 4268.333 Balance 1830 / 3360 908.333 / 4268.333 Physical Exam Narrative: EXAM NARRATIVE: GENERAL: Obese man lying in bed in no acute distress HEENT: Extraocular movement intact. Pupils equal round reactive to light. No pallor or icterus. NECK: central trachea, No JVD. No carotid bruit. CARDIOVASCULAR SYSTEM: S1-S2 regular. No S3 or S4 present. No murmur rubs or gallops. RESPIRATORY SYSTEM: Chest clear to auscultation. No wheezes rhonchi or rubs heard. No use of accessory muscles. ABDOMEN: Soft, nontender and nondistended. Normal bowel sounds present. EXTREMITIES: No cyanosis or clubbing. No edema. No signs of chronic venous insufficiency. DIRECTOR OF EMAIL MARKETING: Patient is more alert today. SKIN: Normal turgor and temperature. Data : 12/13/20 07:00 12/13/20 07:00 Micro: Microbiology 12/11/20 18:52 Blood Culture - Final Blood Methicillin Resis Staph Aureus 12/11/20 18:42 Blood Culture - Final Blood Methicillin Resis Staph Aureus 12/11/20 01:20 Blood Culture - Final Blood Methicillin Resis Staph Aureus 12/11/20 00:32 Blood Culture - Final Blood Methicillin Resis Staph Aureus 12/11/20 13:41 Urine Culture - Final Urine,Clean Catch 12/11/20 16:40 MRSA Culture - Final Nose A&P Assessment and plan (1) Bacteremia due to Staphylococcus aureus: 2 cultures growing MR staph aureus from 12/11/2020. Repeat cultures growing methicillin-resistant staph aureus -continues to spike with a T-max of 103.4. -ANDREINA with increased suspicion of prosthetic tricuspid valve endocarditis. No significant valvular or perivalvular regurgitation. -Patient is hemodynamically stable. May continue to manage medically with antibiotics per primary team for 6 weeks. Recommend repeat ANDREINA after antibiotic course. -Findings of study were discussed with the patient. I am not sure patient has complete understanding of what is going on. -There might be some element of meth craving involved in his desire to go home. He was informed that he is medically unsafe for discharge at this time and will need to discuss with Dr. Cruz about the same. Patient was informed and counseled on amphetamine which I am sure he has been told multiple times. He states he is not going to use anymore which I highly doubt. Status: Acute (2) IV drug abuse: Status: Acute (3) Endocarditis of tricuspid valve: History of endocarditis of tricuspid valve in July 2019 Status: Acute (4) H/O tricuspid valve replacement: Status: Acute Attestations Medical Necessity Statement*: As per primary team Time Spent in Patient Care: 16 - 35 minutes (>than 50% of time spent in counselling and/or direct pt care on unit) . Coding Level of Care Code Acute Visitor Services Representative for Cesar Fwd Diagnoses Bacteremia due to Staphylococcus aureus R78.81; B95.61 IV drug abuse F19.10 Endocarditis of tricuspid valve I07.9 H/O tricuspid valve replacement Z95.2
--- NOTE | 2020-12-13 13:15 | PM.ACPR ---
Procedure/Consent Time out: Time Out Performed: Yes Consent: Consent for Procedure: Consent obtained from patient, Risks & Benefits reviewed and Agrees to proceed with procedure Procedure Narrative: ANDREINA Procedure note Indication: Staph aureus bacteremia, history of tricuspid valve replacement for an infective endocarditis Sedation: Propofol by anesthesia The patient was brought down to the GI lab. Procedure was explained to the patient in detail and informed consent was obtained. Timeout was called. After achieving adequate sedation, the probe was inserted on first attempt. No blood on the probe post procedure. Prelim report: Bioprosthetic tricuspid valve in situ. Probable tricuspid valve endocarditis. Mild tricuspid valve regurgitation. normal left ventricle size and systolic function. No left atrial or left atrial appendage mass or thrombus visualized. No ASD or PFO identified. Full report to follow. Patient tolerated the procedure well and initial recovery in GI lab subsequently was transferred to the floor for further management. Acute Procedures Epistaxis Control: Time out performed: Yes
--- NOTE | 2020-12-13 14:06 | PC.NURSE ---
pt wakes when spoken to. states he is not having any trouble breathing. anesthesia aware.
--- NOTE | 2020-12-13 14:18 | ANE.PACU2 ---
Inpatient post-anesthesia follow up: Airway intact: Yes Vital signs: Temperature 97 F Pulse Rate [Monito r] 125 Pulse Rate 91 Respiratory Rate 44 Blood Pressure [Ri ght Arm] 94/55 Blood Pressure 93/45 Pulse Oximetry 93 Oxygen Delivery Me thod [ Room Air Current Rate & Del radha] Oxygen Delivery Me thod Nasal Cannula Oxygen Flow Rate 2 Fraction of Inspir ed Oxygen Hydration adequate: Yes Nausea and vomiting: No Pain level: 1 Mental status: Baseline
--- NOTE | 2020-12-13 14:49 | PC.NURSE ---
GI LAB UP FROM GI LAB VIA BED - VANCOMYCIN STILL RUNNING INTO LEFT WRIST AREA - PER FABBY RN - SACHIN JACKSON VANC WAS STOPPED DURING PROCEDURE - PT AWAKENS TO VERBAL STIMULI - BP 84/56 RR 40 - DR ARCE CALLED TO GI LAB TO ASSESS PTS STABILITY PRIOR TO TRANSFER TO FLOOR - WILL MONITOR
--- NOTE | 2020-12-13 17:28 | P.CONIM_ITS ---
Providers/Reason For Consult Consulting Physican/Specialty*: Mallika Chand MD/Infectious disease Reason for Consult*: Infective endocarditis Attending Physician: Guicho Cruz MD Primary Care Provider: Cooper Lua DO History of Present Illness History of Present Illness Radu Olivera is a 45 year old male with past medical history of IV drug use, history of infective endocarditis and bioprosthetic tricuspid valve replacement in 2019 for endocarditis who presented to emergency room due to fever and sepsis on 12/11/2020. Work up eventually revealed MRSA positive blood cultures. TTE on 12/11 showed bioprosthetic tricuspid valve sitting in proper position with a thickening at subprosthetic valve apparatus funky movement suspicious for vegetation. This was followed by ANDREINA which showed thickened and somewhat mobile echodensity noted on leaflet of prosthetic valve. Small globular somewhat mobile echodensity noted in right ventricle as well. He has been on treatment with Zosyn and Vancomycin thus far. current IVDU +. Review of Systems General: Reports: 10 or more systems reviewed and unremarkable except in HPI and below Const: Denies: fever(s), chills or body aches Eyes: Denies: change in vision, blurry vision or photophobia ENMT: Reports: hoarseness; Denies: throat pain, enlarged tonsils, odynophagia or nasal congestion Card: Denies: chest pain, palpitations, irregular heart rhythm, edema, swelling of feet/ankles, lightheadedness, pre-syncope, dyspnea on exertion or orthopnea Resp: Denies: dyspnea, productive cough, non-productive cough, wheezing, stridor, pain on inspiration, change in phlegm color, hemoptysis or chest congestion GI: Denies: abdominal pain, nausea, vomiting, hematemesis, coffee ground emesis, dysphagia, heartburn, diarrhea, constipation, GI cramping, change in stool character, hematochezia or melena : Denies: flank pain, dysuria, urinary frequency, urinary urgency, urinary hesitancy or hematuria Musc: Denies: neck pain, back pain, extremity pain, joint swelling, joint warmth or deformity Neuro: Denies: headache(s), numbness in extremities, weakness in extremities, sensory changes, difficulty walking, frequent falls, dizziness, vertigo, behavioral changes, Slurred speech present or seizure-like activity Psych: Denies: anxiety, depression, suicidal ideation or homicidal ideation Endo: Denies: polyuria, polydipsia, tired all the time, cold intolerance or hot flashes Marquis/Lymph: Denies: easy bruising or easy bleeding Meds/Allergies Home Medications and Allergies Home Medications Medication Instructions Recorded Confirmed Last Taken Type No Known Home Medications 12/10/20 12/10/20 Unknown History Allergies Allergy/AdvReac Type Severity Reaction Status Date / Time No Known Allergies Allergy Verified 12/10/20 23:48 Current Medications Current Medications Generic Name Dose Route Start Last Admin Trade Name Freq PRN Reason Stop Dose Admin Acetaminophen 650 mg 12/11/20 03:55 12/13/20 00:53 Acetaminophen 325 Mg Tablet PO 650 mg Q6H PRN Administration Mild/Mod Pain Or Temp >/= 101 Famotidine 20 mg 12/11/20 04:00 12/13/20 03:57 Famotidine 20 Mg/2 Ml Inj IVP 20 mg Q12H LIZZY Administration Heparin Sodium (Beef Lung) 5,000 unit 12/12/20 15:30 12/13/20 06:38 Heparin 5,000 Unit/Ml Inj 1 Ml SUBCUT 5,000 unit Q8H LIZZY Administration Sodium Chloride 1,000 mls @ 100 mls/hr 12/11/20 04:00 12/13/20 06:34 Sodium Chloride 0.9% IV 100 mls/hr .Q10H LIZZY Administration Gentamicin Sulfate 500 mg/ 112.5 mls @ 100 mls/hr 12/13/20 09:00 12/13/20 08:32 Sodium Chloride IV 100 mls/hr Q24H LIZZY Administration Vancomycin HCl 2,000 mg/ 500 mls @ 250 mls/hr 12/13/20 10:30 12/13/20 11:02 Sodium Chloride IV 250 mls/hr Q12H LIZZY Administration Lorazepam 0.5 mg 12/12/20 12:15 12/12/20 21:59 Lorazepam 2 Mg/Ml Inj 1 Ml IVP 0.5 mg Q8H PRN Administration ANXIETY PFSH Acute PFSH: Medical History 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 Surgical History H/O tricuspid valve replacement Vitals/I&O/Wt Last Vital Signs Temp 98.7 F 12/13/20 15:58 Pulse 67 12/13/20 17:02 Resp 30 H 12/13/20 17:02 BP 110/72 12/13/20 17:02 Pulse Ox 95 12/13/20 17:02 12/13/20 12/13/20 12/13/20 06:59 14:59 22:59 Intake Total 908.333 / 4268.333 1000 / 1000 Output Total 251 / 251 Balance 908.333 / 4268.333 1000 / 1000 -251 / 749 Physical Exam Narrative: EXAM NARRATIVE: General: No acute distress, AAO x3 HEENT: PERRLA, pupils bilaterally equal and reactive Chest: Normal vesicular breath sounds, no added sounds, equal good air entry bilaterally CVS: S1-S2 regular, systolic murmur+ Abdomen: Soft, nontender, no organomegaly, bowel sounds present Neuro: No focal deficits, no facial deformity, AO x3, power 5/5 in all limbs Data Micro: Micro: Microbiology 12/11/20 18:52 Blood Culture - Fi nal Blood Methicillin Res is Staph Aureus 12/11/20 18:42 Blood Culture - Fi nal Blood Methicillin Res is Staph Aureus 12/11/20 01:20 Blood Culture - Fi nal Blood Methicillin Res is Staph Aureus 12/11/20 00:32 Blood Culture - Fi nal Blood Methicillin Res is Staph Aureus 12/11/20 13:41 Urine Culture - Fi nal Urine,Clean Catch 12/11/20 16:40 MRSA Culture - Fin al Nose A&P Assessment and plan (1) Endocarditis of tricuspid valve: Status: Acute (2) Sepsis: Status: Acute Qualifiers: Sepsis acute organ dysfunction status: unspecified Sepsis type: sepsis due to unspecified organism Qualified Code(s): A41.9 - Sepsis, unspecified organism (3) IV drug abuse: Status: Acute (4) H/O tricuspid valve replacement: Status: Acute Additional A&P Information 45 year old male with past medical history of IV drug use, history of infective endocarditis and bioprosthetic tricuspid valve replacement in 2019 who presented to emergency room with fever and sepsis. Blood cultures persistently positive for MRSA in spite of appropriate antimicrobials 12/11-12/13. Continue with vancomycin keeping trough more than 15. Add gentamicin given bioprosthetic valve. Stop Zosyn. Given persistent MRSA bacteremia, infective endocarditis of bioprosthetic valve, recommend CT surgery evaluation and consider transfer to higher center as patient may benefit from early surgery. KINZA: Resolved. Most likely secondary dehydration versus sepsis. Consult Attestations Medical Necessity Statement: per admitting team Coding Level of Care Code Acute Senior Clinical Data Manager for g Fwd Diagnoses Endocarditis of tricuspid valve I07.9 Sepsis A41.9 Sepsis acute organ dysfunction status: unspecified Sepsis type: sepsis due to unspecified organism IV drug abuse F19.10 H/O tricuspid valve replacement Z95.2
[2020-12-13] MEDS: LORazepam 2 mg/mL INJ 1 mL 0.5 MG IVP (23:15)
[2020-12-14] VITALS (7 sets, daily range): BP systolic 91–113; BP diastolic 55–73; PULSE 61–81; RESP 20–34; TEMP 37.2–38.5; O2SAT 94–96
[2020-12-14] MEDS: famotidine 20 mg/2 mL INJ IVP ×2 (02:54→15:38)
[2020-12-14] MEDS: sodium chloride 0.9% 1,000 ML 100 ML IV ×2 (04:12→13:33)
[2020-12-14 05:49] LABS: Basophils # 0.1 10^3/uL (0.0-0.1); Basophils % 0.7 %; Eosinophils % 0.1 %; Hematocrit 41.9 % (42.0-52.0); Hemoglobin 13.8 g/dL (11.7-16.6); Lymphocytes # 1.6 10^3/uL (0.8-4.8); Lymphocytes % 17.6 %; Mean Corpuscular HGB Conc 32.9 g/dL (30.0-36.0); Mean Corpuscular Hemoglobin 30.3 pg (28.0-34.0); Mean Corpuscular Volume 91.9 fL (80-94); Monocytes # 1.1 10^3/uL (0.2-0.9); Monocytes % 12.1 %; Neutrophils # 6.18 10^3/uL (1.8-7.7); Neutrophils % 68.9 %; Nucleated Red Blood Cells % 0 %; Platelet Count 151 10^3/cmm (130-400); Red Blood Count 4.56 10^6/uL (4.1-5.3); Red Cell Distribution Width 13.5 % (12.1-15.1)
[2020-12-14 06:06] LABS: Alanine Aminotransferase 14 U/L (0-41); Albumin Level 3.1 g/dL (3.5-5.2); Alkaline Phosphatase 55 IU/L (40-130); Anion Gap 12.4 (5-19); Aspartate Amino Transferase 21 U/L (0-40); Blood Urea Nitrogen 12 mg/dL (6-20); Carbon Dioxide 22 mmol/L (22-29); Chloride 107 mmol/L (98-107); Glomerular Filtration Rate 72.4 mL/min (90-130); Glucose 103 mg/dL (65-115); Osmolality Calculated 286 mOsm/kg (285-295); Potassium 3.4 mmol/L (3.5-5.1); Sodium 138 mmol/L (136-145); Total Bilirubin 0.7 mg/dL (0.15-1.2); Total Protein 6.1 g/dL (6.6-8.7)
[2020-12-14 06:11] LABS: Procalcitonin 4.91 ng/mL (0-0.5)
--- NOTE | 2020-12-14 07:34 | PC.NURSE ---
AM NOTE NOTED NAEEM ARMS TO HAVE SCARRING - SCATTERED ABRASIONS TO LEGS - PT IS RESTING QUIETLY WITH RESP AT 34 - CONSTANT FIDGETING OF FEET PRESENT - EVEN IN SLEEP - WILL MONITOR
[2020-12-14 08:36] LABS: Gentamicin Trough 0.4 ug/mL (0.0-8.0)
--- NOTE | 2020-12-14 11:27 | PM.PN ---
Subjective Subjective: Interval history: calm todayNo acute events overnight. Has remained hemodynamically stable. Tmax in last 24 hr 101.3F. Remains on RA. Labs and vitals appreciate. Medications: Reviewed: Yes Vitals/I&O/Wt Last Vital Signs Temp 99.5 F 12/14/20 07:39 Pulse 74 12/14/20 07:39 Resp 34 H 12/14/20 07:39 BP 113/72 12/14/20 07:39 Pulse Ox 94 12/14/20 07:39 12/13/20 12/14/20 12/14/20 22:59 06:59 14:59 Intake Total 2812.5 / 3812.5 1460 / 5272.5 1240 / 1240 Output Total 251 / 251 1840 / 2091 1300 / 1300 Balance 2561.5 / 3561.5 -380 / 3181.5 -60 / -60 Physical Exam Narrative: EXAM NARRATIVE: General: No acute distress, AO x3, skin warm and dry, calm today HEENT: PERRLA, pupils bilaterally equal and reactive Chest: Normal vesicular breath sounds, no added sounds, equal good air entry bilaterally CVS: S1-S2 regular, pansystolic murmur in the tricuspid area, soft MDM at tricuspid area, no tachycardia, no gallops, no rubs Abdomen: Soft, nontender, no organomegaly, bowel sounds present Neuro: No focal deficits, no facial deformity, AO x3, power 5/5 in all limbs Data : 12/14/20 05:10 12/14/20 05:10 Micro: Microbiology 12/13/20 17:50 Blood Culture - Preliminary Blood SPECIMEN COLLECTED 12/13/20 17:55 Blood Culture - Preliminary Blood SPECIMEN COLLECTED 12/11/20 18:52 Blood Culture - Final Blood Methicillin Resis Staph Aureus 12/11/20 18:42 Blood Culture - Final Blood Methicillin Resis Staph Aureus 12/11/20 01:20 Blood Culture - Final Blood Methicillin Resis Staph Aureus 12/11/20 00:32 Blood Culture - Final Blood Methicillin Resis Staph Aureus 12/11/20 13:41 Urine Culture - Final Urine,Clean Catch A&P Assessment and plan (1) Bacteremia due to Staphylococcus aureus: Status: Acute (2) Endocarditis of tricuspid valve: Status: Acute (3) Sepsis: Status: Acute Qualifiers: Sepsis acute organ dysfunction status: unspecified Sepsis type: sepsis due to unspecified organism Qualified Code(s): A41.9 - Sepsis, unspecified organism (4) Fever: Status: Acute (5) IV drug abuse: Status: Acute (6) H/O tricuspid valve replacement: Status: Acute Additional A&P Information 45 year old male with past medical history of IV drug use, history of infective endocarditis and bioprosthetic tricuspid valve replacement in 2019 who presented to emergency room due to fever which started several days ago. Sepsis secondary to staphylococcal bacteremia: Secondary to infective endocarditis as seen on echocardiogram with a history of infective endocarditis of tricuspid valve in 2019 requiring bioprosthetic tricuspid valve replacement. ANDREINA done yesterday. Bioprosthetic tricuspid valve in situ. Probable tricuspid valve endocarditis. Mild tricuspid valve regurgitation. normal left ventricle size and systolic function. No left atrial or left atrial appendage mass or thrombus visualized. No ASD or PFO identified. CT head and lumbar spine results appreciated. Blood culture remain positive for MRSA. Repeat blood cultures. Continue with Vancomycin and Gentamicin. Will manage as per trough levels. Normal saline at 125 cc/h. Keep mean arterial pressure around 65. Monitor for fluid overload or hemodynamic instability. Given continuous persistent MRSA bacteremia, infective endocarditis of bioprosthetic valve, patient requiring ongoing long-term outpatient antibiotic in setting of IV drug abuse will consult ID for further recommendations. KINZA: Resolved. Most likely secondary dehydration versus sepsis. Medical reconciliation done for nephrotoxic drugs. IV drug abuse: Monitor for withdrawal. Ativan 0.5 IV every 8 hours as needed. DVT prophylaxis. Heparin. Cardiac diet CODE STATUS. The patient wants to be full code. The plan of care was discussed with the patient. He verbalized understanding and agreement. Given possible tricuspid valve endocarditis on a bioprosthetic tricuspid valve, persistent staph MRSA bacteremia, persistent fevers even though patient is on tailor antibiotics we will see if patient can be transferred over to higher center with CT surgery/valve replacement capabilities. Attestations Medical Necessity Statement*: Patient requires further hospitalization for management of tricuspid bioprosthetic valve endocarditis, MRSA bacteremia Time Spent in Patient Care: Greater than 35 minutes (>than 50% of time spent in counselling and/or direct pt care on unit). Coding Level of Care Code Acute Financial Analysis Advisor for [facility] Sheryl Diagnoses Bacteremia due to Staphylococcus aureus R78.81; B95.61 Endocarditis of tricuspid valve I07.9 Sepsis A41.9 Sepsis acute organ dysfunction status: unspecified Sepsis type: sepsis due to unspecified organism Fever R50.9 IV drug abuse F19.10 H/O tricuspid valve replacement Z95.2
[2020-12-14] MEDS: LORazepam 2 mg/mL INJ 1 mL 0.5 MG IVP (13:33)
--- NOTE | 2020-12-14 13:38 | NUR.SHIFT ---
ATIVAN IV ATIVAN GIVEN PER PT REQUEST OF ANXIETY - CONSTANT FIGETING - PT MOANING STATES I JUST HURT RESP SHALLOW AND REMAIN 34 - WILL MONITOR
[2020-12-14] MEDS: heparin 5,000 unit/mL INJ 1 mL 5000 UNIT SUBCUT (14:27)
--- NOTE | 2020-12-14 15:43 | P.TS_ITS ---
Transfer Summary Providers Date of Admission: 12/11/20 03:37 Date of Discharge: 12/14/20 Attending Provider at Admission: Timmy Berrios Attending Provider at Transfer: Guicho Cruz MD Primary Care Provider: Cooper Lua DO Anticipated Date of Transfer: Anticipated date of transfer: 12/14/20 Receiving Facility & Provider: Receiving Provider: [Dr. Maharaj] Receiving facility: [[facility]] Diagnoses at Discharge Discharge Diagnosis (1) Bacteremia due to Staphylococcus aureus: Status: Acute (2) Endocarditis of tricuspid valve: Status: Acute (3) Sepsis: Status: Acute Qualifiers: Sepsis acute organ dysfunction status: unspecified Sepsis type: sepsis due to unspecified organism Qualified Code(s): A41.9 - Sepsis, unspecified organism (4) Fever: Status: Acute (5) IV drug abuse: Status: Acute (6) H/O tricuspid valve replacement: Status: Acute Reason for Visit Reason for Visit: fever Hospital Course Hospital Course Radu Olivera is a 45 year old male with past medical history of IV drug use, history of infective endocarditis and bioprosthetic tricuspid valve replacement in 2019 who presented to emergency room due to fever which started several days ago. Reports associated rigors, chills. Reports muscle aches. The patient is very sleepy and is not willing to actively participate in the conversation. He is not willing to provide details. He admits to currently using IV drugs. He denies any associated headache, neck stiffness, nausea or vomiting, chest pain, shortness of breath, cough, palpitations, diarrhea, dysuria. Patient went to the hospital for management and evaluation of sepsis. He was started on broad-spectrum antibiotics. Patient remained hemodynamically stable. Blood cultures grew MRSA. Because of his history of infective endocarditis in the past, bioprosthetic tricuspid valve and ongoing IV drug abuse there is a high concern for infective endocarditis so patient underwent TTE and was concerning for vegetation on tricuspid valve which was confirmed with a ANDREINA which was concerning for possible tricuspid valve endocarditis, mild tricuspid regurgitation. Patient continued to spike high-grade fevers though his procalcitonin and white count settled down towards normal. Because of history of bioprosthetic tricuspid valve, ongoing MRSA bacteremia and persistent fever it is suggested that patient should be transferred to higher center with capability of CT surgery/valve replacement hence [facility] sought. [facility]. Physical Exam Narrative: EXAM NARRATIVE: General: No acute distress, AO x3, skin warm and dry, calm today HEENT: PERRLA, pupils bilaterally equal and reactive Chest: Normal vesicular breath sounds, no added sounds, equal good air entry bilaterally CVS: S1-S2 regular, pansystolic murmur in the tricuspid area, soft MDM at tric uspid area, no tachycardia, no gallops, no rubs Abdomen: Soft, nontender, no organomegaly, bowel sounds present Neuro: No focal deficits, no facial deformity, AO x3, power 5/5 in all limbs TS Data Data Completed and Pending: Completed Studies During Hospitalization Category Date Time Status CT abdomen pelvis wo con 97013 Urge nt Cat Scan 12/11/20 01:[address] head wo/w con [id number] Routine Cat Scan 12/13/20 10:[address] lumbar spine w con [id number] Routine Cat Scan 12/13/20 10:14 Completed XR chest 1V ricco ble [id number] Urgent Exams 12/10/20 23:53 Completed CV echo complete* [id number] Urgent Ultrasound 12/11/20 04:00 Completed Pending at discharge Category Date Time Status Blood Culture Sta t Lab 12/13/20 17:50 Results C DIFF [Clostridi oides Difficile PC R] Routine Lab 12/14/20 13:10 Received Complete Blood Co unt w/Auto AM LABS Lab 12/15/20 04:00 Ordered Comprehensive Met abolic Panel AM LA BS Lab 12/15/20 04:00 Ordered Vancomycin Trough Timed Lab 12/14/20 21:30 Ordered CV echo transesop hageal [id number] Routi ne Ultrasound 12/13/20 12:00 Taken Labs from last 24 hours 12/14/20 12/14/20 12/14/20 07:58 05:10 05:10 WBC RBC Hgb Hct MCV MCH MCHC RDW Plt Count MPV Neut % (Auto) Lymph % (Auto) Chester % (Auto) Eos % (Auto) Baso % (Auto) Neut # (Auto) Lymph # (Auto) Chester # (Auto) Eos # (Auto) Baso # (Auto) Nucleated RBC % (a uto) Nucleated RBCs # Sodium 138 Potassium 3.4 L Chloride 107 Carbon Dioxide 22 Anion Gap 12.4 BUN 12 Creatinine 1.1 GFR Calculation 72.4 L Glucose 103 Calculated Osmolal ity 286 Calcium 8.0 L Total Bilirubin 0.7 AST 21 ALT 14 Alkaline Phosphata se 55 Total Protein 6.1 L Albumin 3.1 L Globulin 3.0 Procalcitonin 4.91 H Gentamicin Trough 0.4 12/14/20 05:10 WBC 9.0 RBC 4.56 Hgb 13.8 Hct 41.9 L MCV 91.9 MCH 30.3 MCHC 32.9 RDW 13.5 Plt Count 151 MPV 11.0 H Neut % (Auto) 68.9 Lymph % (Auto) 17.6 Chester % (Auto) 12.1 Eos % (Auto) 0.1 Baso % (Auto) 0.7 Neut # (Auto) 6.18 Lymph # (Auto) 1.6 Chester # (Auto) 1.1 H Eos # (Auto) 0.0 Baso # (Auto) 0.1 Nucleated RBC % (a uto) 0 Nucleated RBCs # 0.0 Sodium Potassium Chloride Carbon Dioxide Anion Gap BUN Creatinine GFR Calculation Glucose Calculated Osmolal ity Calcium Total Bilirubin AST ALT Alkaline Phosphata se Total Protein Albumin Globulin Procalcitonin Gentamicin Trough Addt'l Data from Hospital Stay: Laboratory Results WBC 9.0 10^3/uL (4.0- 10.0) 12/14/20 05:10 Corrected WBC Cancelled 12/11/20 00:32 RBC 4.56 10^6/uL (4.1 -5.3) 12/14/20 05:10 Hgb 13.8 g/dL (11.7-1 6.6) 12/14/20 05:10 Hct 41.9 % (42.0-52.0 ) L 12/14/20 05:10 MCV 91.9 fL (80-94) 12/14/20 05:10 MCH 30.3 pg (28.0-34. 0) 12/14/20 05:10 MCHC 32.9 g/dL (30.0-3 6.0) 12/14/20 05:10 RDW 13.5 % (12.1-15.1 ) 12/14/20 05:10 Plt Count 151 10^3/cmm (130 -400) 12/14/20 05:10 MPV 11.0 fL (7.4-10.4 ) H 12/14/20 05:10 Gran % Cancelled 12/11/20 00:32 Neut % (Auto) 68.9 % 12/14/20 05:10 Lymph % (Auto) 17.6 % 12/14/20 05:10 Chester % (Auto) 12.1 % 12/14/20 05:10 Eos % (Auto) 0.1 % 12/14/20 05:10 Baso % (Auto) 0.7 % 12/14/20 05:10 Neut # (Auto) 6.18 10^3/uL (1.8 -7.7) 12/14/20 05:10 Lymph # (Auto) 1.6 10^3/uL (0.8- 4.8) 12/14/20 05:10 Chester # (Auto) 1.1 10^3/uL (0.2- 0.9) H 12/14/20 05:10 Eos # (Auto) 0.0 10^3/uL (0.0- 0.8) 12/14/20 05:10 Baso # (Auto) 0.1 10^3/uL (0.0- 0.1) 12/14/20 05:10 Absolute Gran (aut o) Cancelled 12/11/20 00:32 Nucleated RBC % (a uto) 0 % 12/14/20 05:10 Nucleated RBCs # 0.0 /100WBC 12/14/20 05:10 Sodium 138 mmol/L (136-1 45) 12/14/20 05:10 Potassium 3.4 mmol/L (3.5-5 .1) L 12/14/20 05:10 Chloride 107 mmol/L (98-10 7) 12/14/20 05:10 Carbon Dioxide 22 mmol/L (22-29) 12/14/20 05:10 Anion Gap 12.4 (5-19) 12/14/20 05:10 BUN 12 mg/dL (6-20) 12/14/20 05:10 Creatinine 1.1 mg/dL (0.7-1. 2) 12/14/20 05:10 GFR Calculation 72.4 mL/min (90-1 30) L 12/14/20 05:10 Glucose 103 mg/dL (65-115 ) 12/14/20 05:10 Calculated Osmolal ity 286 mOsm/kg (285- 295) 12/14/20 05:10 Lactic Acid 1.3 mmol/L (0.5-2 .2) 12/12/20 05:02 Lactate 3.6 mmol/L (0.5-2 .2) H 12/11/20 00:32 Calcium 8.0 mg/dL (8.5-10 .5) L 12/14/20 05:10 Magnesium 1.6 mg/dL (1.7-2. 3) L 12/12/20 05:02 Iron 10 ug/dL (59-158) L 12/11/20 00:32 TIBC 270 mcg/dl 12/11/20 00:32 % Saturation 3.7 % (20-50) L 12/11/20 00:32 Unsat Iron Binding 260 ug/dL (112-34 7) 12/11/20 00:32 Total Bilirubin 0.7 mg/dL (0.15-1 .2) 12/14/20 05:10 AST 21 U/L (0-40) 12/14/20 05:10 ALT 14 U/L (0-41) 12/14/20 05:10 Alkaline Phosphata se 55 IU/L (40-130) 12/14/20 05:10 C-Reactive Protein 32.8 mg/L (0.0-4. 9) H 12/11/20 00:32 NT-Pro-B Natriuret Pep 1626 pg/mL (0-125 ) H 12/11/20 00:32 Total Protein 6.1 g/dL (6.6-8.7 ) L 12/14/20 05:10 Albumin 3.1 g/dL (3.5-5.2 ) L 12/14/20 05:10 Globulin 3.0 g/dL (1.3-4.6 ) 12/14/20 05:10 Procalcitonin 4.91 ng/mL (0-0.5 ) H 12/14/20 05:10 TSH 0.18 uIU/mL (0.27 -4.20) L 12/11/20 00:32 Free T4 1.02 ng/dL (0.82- 1.77) 12/12/20 05:02 Free T3 1.9 PG/ML (2.0-4. 4) L 12/12/20 05:02 Urine Color Dark yellow (Yel low) 12/11/20 13:41 Urine Appearance Clear (CLEAR) 12/11/20 13:41 Urine pH 5 (5-7) 12/11/20 13:41 Ur Specific Gravit y 1.020 (1.005-1.0 30) 12/11/20 13:41 Urine Protein Trace (Negative) 12/11/20 13:41 Urine Glucose (UA) Norm (Normal) 12/11/20 13:41 Urine Ketones Negative (Negati ve) 12/11/20 13:41 Urine Blood Neg (Negative) 12/11/20 13:41 Urine Nitrate Negative (Negati ve) 12/11/20 13:41 Urine Bilirubin 1+ (Negative) H 12/11/20 13:41 Urine Urobilinogen 1 mg/dL (Negative ) H 12/11/20 13:41 Ur Leukocyte Sangeetha ase Negative (Negati ve) 12/11/20 13:41 Urine RBC None /hpf (0-2) 12/11/20 13:41 Urine WBC Rare /hpf (0-5) 12/11/20 13:41 Ur Eosinophil Smea r 0 (0-0) 12/11/20 13:41 Ur Squamous Epith Cells Rare /hpf (0-5) 12/11/20 13:41 Amorphous Sediment Not Reportable 12/11/20 13:41 Urine Bacteria 1+ /hpf (NONE) H 12/11/20 13:41 Urine Mucus 1+ /hpf 12/11/20 13:41 Urine Eosinophils No eosinophils se en 12/11/20 13:41 Urine Creatinine 302 mg/dL (39-259 ) H 12/11/20 13:41 Gentamicin Trough 0.4 ug/mL (0.0-8. 0) 12/14/20 07:58 Vancomycin Trough 8.1 ug/mL (10-15) L 12/13/20 07:00 Urine Opiates Scre en Negative ng/mL (N egative) 12/13/20 10:15 Ur Barbiturates Sc reen Negative ng/mL (N egative) 12/13/20 10:15 Ur Phencyclidine S crn Negative ng/mL (N egative) 12/13/20 10:15 Ur Amphetamines Sc reen Positive ng/mL (N egative) H 12/13/20 10:15 U Benzodiazepines Scrn Negative ng/mL (N egative) 12/13/20 10:15 Urine Cocaine Scre en Negative ng/mL (N egative) 12/13/20 10:15 U Marijuana (THC) Screen Negative ng/mL (N egative) 12/13/20 10:15 Influenza Type A A g Negative (Negati ve) 12/11/20 00:30 Influenza Type B A g Negative (Negati ve) 12/11/20 00:30 SARS-CoV-2 Ag (Rap id) Negative (Negati ve) 12/11/20 00:30 Impressions Chest X-Ray 12/10/20 23:53 IMPRESSION: No acute disease. Abdomen/Pelvis CT 12/11/20 01:13 IMPRESSION: 1. Fatty infiltration of the liver. 2. 2 mm nonobstructing right renal pelvis stone. Radiation Dose CTDIVOL = (mGy): DLP = 1549.18 (mGy-cm) Head CT 12/13/20 10:14 IMPRESSION: 1. No acute intracranial hemorrhage or edema. 2. No enhancing masses or evidence for septic emboli. 3. Minimal RIGHT maxillary and ethmoid air cell disease. Lumbar Spine CT 12/13/20 10:14 IMPRESSION: 1. No evidence for acute inflammatory changes within the lumbar spine by CT. 2. Mild narrowing of the central canal and subarticular recesses and foramen at L4-5 with associated disc protrusion. 3. Very mild displacement of the LEFT L5 nerve root by disc protrusion. 4. Mild bilateral subarticular recess and foraminal stenosis at L2-3. Microbiology 12/13/20 17:55 Blood Blood Culture - Preliminary SPECIMEN COLLECTED 12/13/20 17:50 Blood Blood Culture - Preliminary SPECIMEN COLLECTED 12/11/20 18:52 Blood Blood Culture - Final Methicillin Resis Staph Aureus 12/11/20 18:42 Blood Blood Culture - Final Methicillin Resis Staph Aureus 12/11/20 01:20 Blood Blood Culture - Final Methicillin Resis Staph Aureus 12/11/20 00:32 Blood Blood Culture - Final Methicillin Resis Staph Aureus 12/11/20 13:41 Urine,Clean Catch Urine Culture - Final 12/11/20 16:40 Nose MRSA Culture - Final Vitals: Last Vital Signs Temp 98.9 F 12/14/20 12:00 Pulse 81 12/14/20 13:59 Resp 20 H 12/14/20 12:00 BP 91/56 12/14/20 12:00 Pulse Ox 96 12/14/20 12:00 TS Medications Medications Home Medications No Known Home Medications 12/10/20 [History Confirmed 12/10/20] Active Medications Acetaminophen (Acetaminophen 325 Mg Tablet) 650 mg PO Q6H PRN PRN Reason: Mild/Mod Pain Or Temp >/= 101 Last Admin: 12/13/20 23:15 Dose: 650 mg Documented by: Famotidine (Famotidine 20 Mg/2 Ml Inj) 20 mg IVP Q12H [facility] Last Admin: 12/14/20 02:54 Dose: 20 mg Documented by: Heparin Sodium (Beef Lung) (Heparin 5,000 Unit/Ml Inj 1 Ml) 5,000 unit SUBCUT Q8H [facility] Last Admin: 12/14/20 14:27 Dose: 5,000 unit Documented by: Sodium Chloride (Sodium Chloride 0.9%) 1,000 mls @ 100 mls/hr IV .Q10H [facility] Last Admin: 12/14/20 13:33 Dose: 100 mls/hr Documented by: Gentamicin Sulfate 500 mg/ (Sodium Chloride) 112.5 mls @ 100 mls/hr IV Q24H [facility] Last Infusion: 12/14/20 13:23 Dose: Infused Documented by: Vancomycin HCl 2,000 mg/ (Sodium Chloride) 500 mls @ 250 mls/hr IV Q12H [facility] Last Infusion: 12/14/20 13:23 Dose: Infused Documented by: Lorazepam (Lorazepam 2 Mg/Ml Inj 1 Ml) 0.5 mg IVP Q8H PRN PRN Reason: ANXIETY Last Admin: 12/14/20 13:33 Dose: 0.5 mg Documented by: Ondansetron HCl (Ondansetron 2 Mg/Ml Sdv 2 Ml) 4 mg IVP Q8H PRN PRN Reason: vomiting, or N/V if npo Discharge Plan Discharge Patient Disposition: Home Condition: Stable Prescriptions: No Action No Known Home Medications RF: 0 Discharge Orders: Discharge Order (Routine); Ordered 12/14/20 Ordered By: Guicho Cruz Referrals: Cooper Lua DO [Primary Care Provider] - Discharge Diet: Cardiac Discharge Activity: Resume usual activity Patient Instructions: Opioid Safety Transfer Attestations Time Spent in Transfer Care*: greater than 30 min Specific Discharge Activities: Specific discharge activities: educating patient, discussing with pcp/other providers, discussing with family preservation caseworker/social workers/dc planners, documenting/other paperwork and evaluating patient/reviewing data Status at Transfer: Cognitive status at transfer: cognitively intact , Behavioral status at transfer: cooperative , Functional status at transfer: independent ambulation Overall status at transfer: patient is not back to baseline Quality Metrics Clinical Quality Measures: During this hospital stay, did patient experience: None Coding Level of Care Code Acute Observer [employer]ing for g Fwd Diagnoses Bacteremia due to Staphylococcus aureus R78.81; B95.61 Endocarditis of tricuspid valve I07.9 Sepsis A41.9 Sepsis acute organ dysfunction status: unspecified Sepsis type: sepsis due to unspecified organism Fever R50.9 IV drug abuse F19.10 H/O tricuspid valve replacement Z95.2
--- NOTE | 2020-12-14 15:44 | PC.NURSE ---
REPORT CALLED TO [facility] REPORT CALLED TO SACHIN SANTIAGO AT [facility]
--- NOTE | 2020-12-14 17:06 | PC.NURSE ---
TRANSFER [facility] ON FLOOR TO [facility] - REPORT GIVEN TO WAYLON PATELEDIC
== END 2020-12-14 17:09 | disposition short-term general hospital (02) | DRG 871 ==
LOC: ER 23:53 → MEDSURG 12-11 03:54
PROVIDERS: Internal Medicine Cardiovascular Disease; Nurse Practitioner Family; Admitting Provider Internal Medicine; Emergency Provider Emergency Medicine; PCP Emergency Medicine Emergency Medical Services; Visit Provider Student in an Organized Health Care Education/Training Program
PROC: B24BZZ4 Ultrasonography of Heart with Aorta, Transesophageal (ICD-10-PCS; CPT 93312; principal; 2020-12-13 12:00)
DX: A41.9 Sepsis, unspecified organism (principal); I33.0 Acute and subacute infective endocarditis; N17.9 Acute kidney failure, unspecified; E87.1 Hypo-osmolality and hyponatremia; T82.6XXA Infection and inflammatory reaction due to cardiac valve prosthesis, initial encounter; Z95.3 Presence of xenogenic heart valve; F15.10 Other stimulant abuse, uncomplicated; E86.0 Dehydration; B95.62 Methicillin resistant Staphylococcus aureus infection as the cause of diseases classified elsewhere; Z86.19 Personal history of other infectious and parasitic diseases; Y71.2 Prosthetic and other implants, materials and accessory cardiovascular devices associated with adverse incidents
CPT/HCPCS: 36415; 70470; 71045; 72132; 74176; 80053; 80170; 80202; 80306; 81001; 82570; 83540; 83550; 83605; 83735; 83880; 84145; 84439; 84443; 84481; 85025; 85999; 86140; 87040; 87077; 87086; 87186; 87205; 87426; 87493; 87641; 87804; 93306; 93312; 93320; 93325; 96361; 96365; 96372; 96375; 99285; J1580; J1644; J1885; J2060; J2370; J2405; J2543; J2704; J3370; J3490; J7030; J7040; J7050; Q9967

== ENCOUNTER 2021-03-15 21:57 | Emergency (ER) | payer OTHER, SELFPAY ==
--- NOTE | 2021-03-15 22:06 | W.ED.GENADLT ---
HPI - General Adult General: Chief complaint: Altered Mental Status Stated complaint: SHAKING CONFUSION Time Seen by Provider: 03/15/21 22:03 Source: patient Mode of arrival: ambulatory Limitations: no limitations History of Present Illness: HPI narrative: 45-year-old male states that he took an unknown pill roughly an hour or so ago. He states a friend gave him and after that he started becoming extremely anxious. Patient here does appear to be under the influence of some sort of stimulant as he is quite anxious moving around in the bed states he just feels like his heart is beating out of his chest and that he cannot control his movements. Denies any worsening improving factors. Associated symptoms: Deny chest pain, dyspnea, headache(s), nausea, rash or vomiting Review of Systems Const: Denies: fever(s), chills, body aches or change in appetite Eyes: Denies: blurry vision or eye discomfort ENMT: Denies: throat pain or dental pain Card: Denies: chest pain Resp: Denies: dyspnea GI: Denies: abdominal pain, nausea, vomiting or diarrhea : Denies: dysuria Musc: Denies: neck pain or back pain Skin/Breast: Denies: rash Neuro: Denies: headache(s) Psych: Reports: anxiety and mood swings Marquis/Lymph: Denies: easy bruising All/Imm: Denies: urticaria PFSH ED PFSH: Medical History 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 Surgical History H/O tricuspid valve replacement Physical Exam Const: COMMON NORMALS: patient oriented x3 GENERAL APPEARANCE: anxious and disheveled HENMT: COMMON NORMALS: normocephalic and atraumatic HEAD & SCALP: normocephalic and atraumatic Eye: COMMON NORMALS: Equal, round and reactive pupils present and EOMs intact bilaterally PUPIL: Yes Equal, round and reactive pupils present Neck/C-Spine: COMMON NORMALS: full ROM and supple Chest: COMMONS NORMALS: normal inspection of the chest and normal palpation of entire chest wall Resp: COMMON NORMALS: normal respiratory effort, No retractions, No use of accessory muscles and clear to auscultation bilaterally AUSCULTATION: clear to auscultation bilaterally Cardio: COMMON NORMALS: regular rate, regular rhythm and No murmurs present (Cardio) RATE: regular rate RHYTHM: regular rhythm GI: COMMON NORMALS: Normal to inspection, nondistended, normoactive bowel sounds present, Soft to palpation, non-tender and no masses PALPATION: Yes Soft to palpation Extremity: COMMON NORMALS: normal to inspection and full ROM Neuro: COMMON NORMALS: patient oriented x3, moves all extremities and no focal motor deficits Psych: COMMON NORMALS: mental status grossly normal and cooperative MOOD & AFFECT: Yes anxious Skin: COMMON NORMALS: no rashes or lesions noted and no wounds GENERAL SKIN EXAM: no rashes or lesions noted Course Vital Signs: Vital signs: Vital Signs Temperature 98.6 F 03/15/21 23:26 Pulse Rate 56 L 03/16/21 04:50 Respiratory Rate 17 03/16/21 04:50 Blood Pressure 104/66 03/16/21 04:50 Pulse Oximetry 94 03/16/21 04:50 MDM - General Adult MDM Narrative: Medical decision making narrative: Patient presents for anxiety likely from methamphetamine abuse. He did test positive for amphetamines. He is much improved here. He is amatory now awake and alert able answer my questions. He is stable for discharge. Lab Data: Labs: Lab Results 03/15/21 03/15/21 03/15/21 Range/Units 22:00 22:00 23:50 WBC 11.2 H (4.0-10.0) 10^3/ uL RBC 4.90 (4.1-5.3) 10^6/u L Hgb 14.6 (11.7-16.6) g/dL Hct 44.5 (42.0-52.0) % MCV 90.8 (80-94) fL MCH 29.8 (28.0-34.0) pg MCHC 32.8 (30.0-36.0) g/dL RDW 12.9 (12.1-15.1) % Plt Count 263 (130-400) 10^3/c mm MPV 9.8 (7.4-10.4) fL Neut % (Auto) 75.4 % Lymph % (Auto) 14.2 % [place] % (Auto) 9.0 % Eos % (Auto) 0.4 % Baso % (Auto) 0.8 % Neut # (Auto) 8.47 H (1.8-7.7) 10^3/u L Lymph # (Auto) 1.6 (0.8-4.8) 10^3/u L [place] # (Auto) 1.0 H (0.2-0.9) 10^3/u L Eos # (Auto) 0.0 (0.0-0.8) 10^3/u L Baso # (Auto) 0.1 (0.0-0.1) 10^3/u L Nucleated RBC % (a uto) 0 % Nucleated RBCs # 0.0 /100WBC Sodium 133 L (136-145) mmol/L Potassium 4.3 (3.5-5.1) mmol/L Chloride 102 (98-107) mmol/L Carbon Dioxide 19 L (22-29) mmol/L Anion Gap 16.3 (5-19) BUN 20 (6-20) mg/dL Creatinine 1.5 H (0.7-1.2) mg/dL GFR Calculation 50.6 L (90-130) mL/min Glucose 104 (65-115) mg/dL Calculated Osmolal ity 279 L (285-295) mOsm/k g Calcium 8.6 (8.5-10.5) mg/dL Total Bilirubin 1.3 H (0.15-1.2) mg/dL AST 36 (0-40) U/L ALT 19 (0-41) U/L Alkaline Phosphata se 90 (40-130) IU/L Total Protein 7.4 (6.6-8.7) g/dL Albumin 4.3 (3.5-5.2) g/dL Globulin 3.1 (1.3-4.6) g/dL Salicylates < 0.3 L (3-10) mg/dL Urine Opiates Scre en Positive H (Negative) ng/mL Acetaminophen < 5.0 L (10-30) ug/mL Ur Barbiturates Sc reen Negative (Negative) ng/mL Ur Phencyclidine S crn Negative (Negative) ng/mL Ur Amphetamines Sc reen Positive H (Negative) ng/mL U Benzodiazepines Scrn Negative (Negative) ng/mL Urine Cocaine Scre en Negative (Negative) ng/mL U Marijuana (THC) Screen Negative (Negative) ng/mL Ethyl Alcohol < 10 (0-10) mg/dL Discharge Plan Discharge Patient Disposition: Home Clinical Impression: Methamphetamine abuse Condition: Stable Prescriptions: No Action No Known Home Medications RF: 0 Discharge Orders: Discharge ED (Routine); Ordered 03/16/21 Ordered By: Paige Ham Referrals: Cooper Lua DO [Primary Care Provider] - Discharge Diet: Advance as tolerated Discharge Activity: Resume usual activity Patient Instructions: Methamphetamine Abuse (ED) Coding Level of Care Code ED Underwriting Assistant for Cesar Fwd Exam Comprehensive
[2021-03-15] MEDS: LORazepam 2 mg/mL INJ 1 mL IV (22:08)
[2021-03-15] MEDS: haloperidol inj 5 mg/mL INJ 1 mL IM (22:18)
[2021-03-15 22:22] LABS: Basophils # 0.1 10^3/uL (0.0-0.1); Basophils % 0.8 %; Eosinophils % 0.4 %; Hematocrit 44.5 % (42.0-52.0); Hemoglobin 14.6 g/dL (11.7-16.6); Lymphocytes # 1.6 10^3/uL (0.8-4.8); Lymphocytes % 14.2 %; Mean Corpuscular HGB Conc 32.8 g/dL (30.0-36.0); Mean Corpuscular Hemoglobin 29.8 pg (28.0-34.0); Mean Corpuscular Volume 90.8 fL (80-94); Mean Platelet Volume 9.8 fL (7.4-10.4); Neutrophils # 8.47 10^3/uL (1.8-7.7); Neutrophils % 75.4 %; Nucleated Red Blood Cells % 0 %; Platelet Count 263 10^3/cmm (130-400); Red Cell Distribution Width 12.9 % (12.1-15.1); White Blood Count 11.2 10^3/uL (4.0-10.0)
[2021-03-15 22:46] LABS: Alanine Aminotransferase 19 U/L (0-41); Albumin Level 4.3 g/dL (3.5-5.2); Alkaline Phosphatase 90 IU/L (40-130); Anion Gap 16.3 (5-19); Aspartate Amino Transferase 36 U/L (0-40); Blood Urea Nitrogen 20 mg/dL (6-20); Calcium 8.6 mg/dL (8.5-10.5); Carbon Dioxide 19 mmol/L (22-29); Chloride 102 mmol/L (98-107); Globulin 3.1 g/dL (1.3-4.6); Glomerular Filtration Rate 50.6 mL/min (90-130); Glucose 104 mg/dL (65-115); Osmolality Calculated 279 mOsm/kg (285-295); Potassium 4.3 mmol/L (3.5-5.1); Sodium 133 mmol/L (136-145); Total Bilirubin 1.3 mg/dL (0.15-1.2); Total Protein 7.4 g/dL (6.6-8.7)
[2021-03-15 22:48] LABS: Acetaminophen < 5.0 ug/mL (10-30); Alcohol Level < 10 mg/dL (0-10); Salicylate < 0.3 mg/dL (3-10)
[2021-03-15] MEDS: LORazepam 2 mg/mL INJ 1 mL 1 MG IVP (23:13)
[2021-03-15] MEDS: sodium chloride 0.9% 1,000 ML 999 ML IV (23:13)
[2021-03-15 23:26] VITALS: BP 123/68; PULSE 108; RESP 25; TEMP 37; O2SAT 95; BMI 33.2
--- NOTE | 2021-03-15 23:57 | PC.NURSE ---
Straight cath initiated for urine.
[2021-03-16 00:09] LABS: Amphetamines Screen Urine Positive (Negative); Barbiturates Screen Urine Negative (Negative); Benzodiazepines Screen Urine Negative (Negative); Cocaine Screen Urine Negative (Negative); Opiate Screen Urine Positive (Negative); PCP Screen Urine Negative (Negative); THC Screen Urine Negative (Negative)
[2021-03-16 02:07] VITALS: BP 102/73; PULSE 71; RESP 22; O2SAT 92
[2021-03-16 04:50] VITALS: BP 104/66; PULSE 56; RESP 17; O2SAT 94
[2021-03-16 05:31] VITALS: BP 113/66; PULSE 65; RESP 23; O2SAT 96
== END 2021-03-16 05:31 | disposition home or self-care (01) ==
PROVIDERS: Emergency Provider Emergency Medicine; PCP Emergency Medicine Emergency Medical Services
DX: F15.10 Other stimulant abuse, uncomplicated (principal)
CPT/HCPCS: 80053; 80306; 80307; 85025; 96361; 96372; 96374; 99284; J1630; J2060; J7030

== ENCOUNTER 2023-01-03 08:06 | Emergency (ER) | payer OTHER, SELFPAY ==
[2023-01-03 08:09] VITALS: BP 117/87; PULSE 87; RESP 16; TEMP 36.6; O2SAT 97
--- NOTE | 2023-01-03 08:19 | W.ED.EXTPRO ---
HPI - Extremity Problem General: Chief complaint: Extremity Problem,Nontraumatic Stated complaint: pain in toenails Time Seen by Provider: 01/03/23 08:10 Source: patient Mode of arrival: ambulatory History of Present Illness: 47-year-old male presents emergency room complaining of pain bilaterally in his toes. His hypertrophic toenails to the great toes bilaterally there is curvature he has not been able to trim them because of the thickening. There is no drainage from the nails no recent trauma. Reviewing patient's history he has had a history of endocarditis with a tricuspid valve replacement. MD Complaint: extremity pain Onset (ago): month(s) Pain Consistency: constant Location: left, right, lower extremity and toe Relieving factors: other (Avoiding pressure or movement on the nail) Exacerbating factors: palpation Associated symptoms: Deny fever(s) Review of Systems Const: Denies: fever(s) or chills Musc: Reports: extremity pain PFSH ED PFSH: Medical History 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 Surgical History H/O tricuspid valve replacement Physical Exam Const: COMMON NORMALS: no acute distress GENERAL APPEARANCE: cooperative and comfortable ORIENTATION/CONSCIOUSNESS: Yes awake HENMT: COMMON NORMALS: normocephalic, atraumatic and hearing grossly normal bilaterally HEAD & SCALP: normocephalic and atraumatic Extremity: COMMON NORMALS: normal to inspection, capillary refill normal, no clubbing, cyanosis or edema, no calf tenderness and no pedal edema OTHER: Hypertrophic toenails with significant distortion of the nail and thickening. Involves the great toes bilaterally no redness no inflammation no drainage no injury the nail is significantly deformed the remainder of the toe appears normal Skin: COMMON NORMALS: no rashes or lesions noted GENERAL SKIN EXAM: no rashes or lesions noted Course Vital Signs: Vital signs: Vital Signs Temperature 97.9 F 01/03/23 08:25 Pulse Rate 87 01/03/23 08:25 Respiratory Rate 16 01/03/23 08:25 Blood Pressure 117/87 01/03/23 08:25 Pulse Oximetry 97 01/03/23 08:25 Oxygen Delivery Me thod Room Air 01/03/23 08:09 MDM - Extremity (Nontraumatic) Medical Decision Making Discussed with the patient this is best managed by podiatry in the clinic setting. Especially given his history of prosthetic tricuspid valve. Medical Records I reviewed the patient's medical records. Discharge Plan Discharge Patient Disposition: Home Clinical Impression: Pain due to onychomycosis of toenail of right foot, Pain due to onychomycosis of toenail of left foot, H/O tricuspid valve replacement Condition: Stable Prescriptions: New diclofenac sodium 75 mg tablet,delayed release (DR/EC) 75 mg PO Q12H PRN (Reason: pain) Qty: 20 0RF Discharge Orders: Discharge ED (Routine); Ordered 01/03/23 Ordered By: Yosvany Senior Referrals: Cooper Lua, [Primary Care Provider] - Discharge Diet: Usual diet Discharge Activity: Increase activity as tolerated Patient Instructions: Opioid Safety, Pain Management Activity Restrictions/Additional Instructions: You were seen today for onychomycosis (fungal infection of the toenails) bilaterally. Case management make arrangements for you to have follow-up for definitive care with podiatry. The anti-inflammatory prescribed as well as wearing open toed shoes will help relieve the discomfort. Coding Level of Care Code ED Community Relations Representative for Cesar Saucedo
--- NOTE | 2023-01-03 08:23 | DCPLANNER ---
Addendum entered by Tammie Bond 01/14/23 11:28: Patient had a follow up appointment at ortho - patient did attend appointment. Addendum entered by Tammie Bond 01/06/23 06:19: Patient has a follow up appointment scheduled for Sunday, January 08, 2023 at 11:[address] Riggs at ortho. Original Note: manager competitive intelligence was asked to schedule a follow up appointment for patient with podiatry. manager competitive intelligence sent patients information to the front office staff at podiatry. Patients information will be printed and reviewed. Clinic will call patient with appointment information.
[2023-01-03 08:25] VITALS: BP 117/87; PULSE 87; RESP 16; TEMP 36.6; O2SAT 97
== END 2023-01-03 08:26 | disposition home or self-care (01) ==
PROVIDERS: Emergency Provider Family Medicine; PCP Emergency Medicine Emergency Medical Services
DX: B35.1 Tinea unguium (principal); Z95.2 Presence of prosthetic heart valve
CPT/HCPCS: 99283

== ENCOUNTER → 2023-01-08 10:59 | Outpatient (BNVA) | payer OTHER, SELFPAY | PROVIDERS: PCP Emergency Medicine Emergency Medical Services; Referring Provider Family Medicine; Visit Provider Podiatrist Foot & Ankle Surgery | DX: B35.1 Tinea unguium (principal); L60.0 Ingrowing nail | CPT/HCPCS: 11730; 99203; A6219 ==

== ENCOUNTER 2023-12-21 10:43 | Emergency (ER) | payer OTHER, SELFPAY ==
[2023-12-21 10:58] VITALS: BP 113/52; PULSE 118; RESP 26; TEMP 37.6; O2SAT 93
[2023-12-21 11:00] VITALS: BP 97/66; PULSE 97; RESP 18; O2SAT 96
--- NOTE | 2023-12-21 11:03 | XRR_ITS ---
PROCEDURE INFORMATION: Exam: XR Chest Exam date and time: 12/21/2023 11:42 AM Age: 48 years old Clinical indication: Fever and shortness of breath; Prior surgery; Surgery date: 6+ months; Surgery type: Tricuspid valve replacement 2016; Patient HX: Dyspnea; Cough; SOB; Fever TECHNIQUE: Imaging protocol: Radiologic exam of the chest. Views: 1 view. COMPARISON: CR XR chest 1V portable [id number] 12/10/2020 11:53 PM FINDINGS: Lungs: Unremarkable. No consolidation. Pleural spaces: Unremarkable. No pleural effusion. No pneumothorax. Heart/Mediastinum: Unremarkable. No cardiomegaly. Vasculature: Unfolding of the thoracic aorta. Bones/joints: Post sternotomy and tricuspid valve replacement. Mild bilateral degenerative disease of the acromioclavicular joints. XR/XR chest 1V [id number] IMPRESSION: No acute cardiopulmonary process.
--- NOTE | 2023-12-21 11:45 | ED_ITS ---
HPI - General Adult 2 General: Chief complaint: Upper Respiratory Infection Stated complaint: cough, body ache, chills, N/V/D Time Seen by Provider: 12/21/23 11:17 Source: patient Mode of arrival: ambulatory History of Present Illness: 48-year-old male presents emergency room with cough body aches nausea vomiting and diarrhea. Began over the last couple of days cough has been worsening. He has some chills at times he has diarrhea and posttussive vomiting. Temp at home has been over 101 at times. Denies any hemoptysis. He has previously had a tricuspid valve replacement secondary to endocarditis. Onset (ago): day(s) Relieving factors: none Exacerbating factors: none Associated symptoms: Reports cough, fevers/chills, headache(s), malaise, vomiting and weakness; Deny chest pain, confusion, diaphoresis, decreased appetite, dyspnea, nausea, rash, palpitations, seizures, short of breath or syncope Review of Systems 2 Const: Reports: malaise; Denies: fever(s), chills or diaphoresis Card: Denies: chest pain, palpitations or syncope Resp: Denies: dyspnea GI: Reports: vomiting; Denies: abdominal pain or nausea : Denies: dysuria, urinary frequency or urinary urgency Musc: Denies: neck pain or back pain Skin/Breast: Denies: rash Neuro: Reports: headache(s); Denies: confusion PFSH ED 2 PFSH: Medical History 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 Surgical History H/O tricuspid valve replacement Physical Exam 2 Const: GENERAL APPEARANCE: cooperative and comfortable O RIENTATION/CONSCIOUSNESS: Yes awake, Yes oriented to person, Yes oriented to place and Yes oriented to time HENMT: COMMON NORMALS: normocephalic, atraumatic and hearing grossly normal bilaterally HEAD & SCALP: normocephalic and atraumatic Resp: AUSCULTATION: rhonchi and wheezes Cardio: COMMON NORMALS: regular rate, regular rhythm and No murmurs present (Cardio) RATE: regular rate RHYTHM: regular rhythm GI: COMMON NORMALS: Soft to palpation and No hepatosplenomegaly present A USCULTATION: Yes normoactive bowel sounds PALPATION: Yes Soft to palpation, No Tenderness to palpation present (GI), No Guarding due to palpation present (GI) and Yes No hepatosplenomegaly present Extremity: COMMON NORMALS: normal to inspection, capillary refill normal, no clubbing, cyanosis or edema, no calf tenderness and no pedal edema Neuro: SENSORIUM/ORIENTATION: Yes oriented to person, Yes oriented to place and Yes oriented to time Skin: COMMON NORMALS: no rashes or lesions noted GENERAL SKIN EXAM: no rashes or lesions noted Course 2 Vital Signs: Vital signs: Vital Signs Temperature 99.7 F H 12/21/23 16:08 Pulse Rate 86 12/21/23 16:08 Respiratory Rate 18 12/21/23 16:08 Blood Pressure 108/61 12/21/23 16:08 Pulse Oximetry 96 12/21/23 16:08 Oxygen Delivery Me thod Room Air 12/21/23 15:12 MDM - General Adult Medical Decision Making Positive on respiratory panel for parainfluenza symptomatic care. Use albuterol as needed prescription given Tylenol ibuprofen for fever myalgias etc. Follow- up with primary care. Medical Records I reviewed the patient's medical records. Lab Data I reviewed the patient's lab results. 12/21/23 12:17 12/21/23 12:17 Radiology Impressions Chest X-Ray 12/21/23 11:03 IMPRESSION: No acute cardiopulmonary process. Laboratory Results WBC Cancelled 12/21/23 Unknown Corrected WBC Cancelled 12/21/23 Unknown RBC Cancelled 12/21/23 Unknown Hgb Cancelled 12/21/23 Unknown Hct Cancelled 12/21/23 Unknown MCV Cancelled 12/21/23 Unknown MCH Cancelled 12/21/23 Unknown MCHC Cancelled 12/21/23 Unknown RDW Cancelled 12/21/23 Unknown Plt Count Cancelled 12/21/23 Unknown MPV Cancelled 12/21/23 Unknown Gran % Cancelled 12/21/23 Unknown Neut % (Auto) Cancelled 12/21/23 Unknown Lymph % (Auto) Cancelled 12/21/23 Unknown [place] % (Auto) Cancelled 12/21/23 Unknown Eos % (Auto) Cancelled 12/21/23 Unknown Baso % (Auto) Cancelled 12/21/23 Unknown Neut # (Auto) Cancelled 12/21/23 Unknown Lymph # (Auto) Cancelled 12/21/23 Unknown [place] # (Auto) Cancelled 12/21/23 Unknown Eos # (Auto) Cancelled 12/21/23 Unknown Baso # (Auto) Cancelled 12/21/23 Unknown Absolute Gran (auto) Cancelled 12/21/23 Unknown Nucleated RBC % (auto) Cancelled 12/21/23 Unknown Nucleated RBCs # Cancelled 12/21/23 Unknown Sodium 132 mmol/L (136-145) L 12/21/23 12:17 Potassium 3.5 mmol/L (3.5-5.1) 12/21/23 12:17 Chloride 97 mmol/L (98-107) L 12/21/23 12:17 Carbon Dioxide 24 mmol/L (22-29) 12/21/23 12:17 Anion Gap 14.5 (5-19) 12/21/23 12:17 BUN 12 mg/dL (6-20) 12/21/23 12:17 Creatinine 1.3 mg/dL (0.7-1.2) H 12/21/23 12:17 GFR Calculation 58.9 mL/min (90-130) L 12/21/23 12:17 Glucose 88 mg/dL (65-115) 12/21/23 12:17 Calculated Osmolality 273 mOsm/kg (285-295) L 12/21/23 12:17 Lactic Acid 1.8 mmol/L (0.5-2.2) 12/21/23 12:17 Calcium 8.7 mg/dL (8.5-10.5) 12/21/23 12:17 Total Bilirubin 0.7 mg/dL (0.15-1.2) 12/21/23 12:17 AST 30 U/L (0-40) 12/21/23 12:17 ALT 21 U/L (0-41) 12/21/23 12:17 Alkaline Phosphatase 69 U/L (40-130) 12/21/23 12:17 Troponin T Baseline 16 ng/L (0-15) H 12/21/23 12:17 Troponin T 120 Minute 14.70 ng/L (0-15) 12/21/23 15:17 Delta Troponin T -1.30 ABS# (0-10) L 12/21/23 15:17 Total Protein 7.3 g/dL (6.6-8.7) 12/21/23 12:17 Albumin 3.8 g/dL (3.5-5.2) 12/21/23 12:17 Globulin 3.5 g/dL (1.3-4.6) 12/21/23 12:17 Adenovirus (PCR) Not detected (NOT DETECT) 12/21/23 11:22 C. pneumoniae DNA (PCR) Not detected (NOT DETECT) 12/21/23 11:22 Coronavirus 229E (PCR) Not detected (NOT DETECT) 12/21/23 11:22 Human Metapneumovir PCR Not detected (NOT DETECT) 12/21/23 11:22 Influenza A (H1) PCR Not detected (NOT DETECT) 12/21/23 11:22 Influ A (H1/09) PCR Not detected (NOT DETECT) 12/21/23 11:22 Influenza A (H3) PCR Not detected (NOT DETECT) 12/21/23 11:22 Influenza Type A (PCR) Not detected (NOT DETECT) 12/21/23 11:22 Influenza Type B (PCR) Not detected (NOT DETECT) 12/21/23 11:22 M. pneumoniae (PCR) Not detected (NOT DETECT) 12/21/23 11:22 Parainfluenza 1 (PCR) Not detected (NOT DETECT) 12/21/23 11:22 Parainfluenza 2 (PCR) Not detected (NOT DETECT) 12/21/23 11:22 Parainfluenza 3 (PCR) Detected (NOT DETECT) A 12/21/23 11:22 Parainfluenza 4 (PCR) Not detected (NOT DETECT) 12/21/23 11:22 RSV Type A (PCR) Not detected (NOT DETECT) 12/21/23 11:22 RSV Type B (PCR) Not detected (NOT DETECT) 12/21/23 11:22 Entero/Rhino (PCR) Not detected (NOT DETECT) 12/21/23 11:22 SARS-CoV-2 (PCR) Not detected (NOT DETECT) 12/21/23 11:22 All radiology interpretation(s) finalized by discharge Discharge Plan Discharge Patient Disposition: Home Clinical Impression: Viral URI with cough Condition: Stable Prescriptions: New albuterol sulfate 90 mcg/actuation HFA aerosol inhaler 2 inh INHALATION Q4H PRN (Reason: shortness of breath or wheezing) Qty: 18 0RF No Action diclofenac sodium 75 mg tablet,delayed release (DR/EC) 75 mg PO Q12H PRN (Reason: pain) Qty: 20 0RF Discharge Orders: Discharge ED (Routine); Ordered 12/21/23 Ordered By: Yosvany Senior Referrals: Cooper Lua, DO [Primary Care Provider] - Discharge Diet: Usual diet Discharge Activity: Increase activity as tolerated Patient Instructions: Influenza (ED), Opioid Safety, Pain Management Activity Restrictions/Additional Instructions: Thank you for choosing [facility] for your healthcare needs today. Please realize this is an emergency room and that we are providing you with a medical screening exam and this may not be complete and all inclusive of all the testing and or work up that you may need to determine your ailment or severity of your illness. It is very important that you follow up as instructed or that you return to the Emergency Department should you have concerns or if your condition changes or worsens in any way. You were seen today for viral respiratory infection your respiratory swab showed parainfluenza. This is a flulike illness there is no antibiotic or antiviral that can be used for this. Recommend supportive cares you can use albuterol Tylenol or ibuprofen as needed. You are given a prescription for albuterol to help with cough and congestion. Follow-up with your primary care doctor as needed. Coding Level of Care Code ED Brush Hand for Cesar Saucedo
--- NOTE | 2023-12-21 12:05 | ECG_ITS ---
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 Measurements Intervals [place] Rate: 93 P: 42 RI: 130 QRS: 44 QRSD: 102 T: 50 QT: 325 QTc: 404 Interpretive Statements SINUS RHYTHM INCOMPLETE RIGHT BUNDLE BRANCH BLOCK [90+ ms QRS DURATION, TERMINAL R IN V1/V2, 40+ ms S IN I/aVL/V4/V5/V6] Compared to ECG 08/03/2018 19:52:41 Incomplete right bundle-branch block now present Sinus tachycardia no longer present Electronically Signed On 12-22-2023 12:13:07 CDT by Stephan Meirda M.D. [id number]
[2023-12-21 12:28] VITALS: BP 123/70; PULSE 96; RESP 18; O2SAT 97
[2023-12-21 12:45] LABS: Basophils # 0.1 10^3/uL (0.0-0.1); Basophils % 0.8 %; Eosinophils % 0.1 %; Hematocrit 45.3 % (37-53); Lymphocytes # 1.1 10^3/uL (0.8-4.8); Lymphocytes % 14.3 %; Mean Corpuscular HGB Conc 34.7 g/dL (30-55); Mean Corpuscular Hemoglobin 32.3 pg (27-33); Mean Corpuscular Volume 93.2 fl (82-101); Mean Platelet Volume 9.6 fL (7.4-10.4); Monocytes # 0.6 10^3/uL (0.2-0.9); Monocytes % 8.1 %; Neutrophils # 6.03 10^3/uL (1.8-7.7); Neutrophils % 76.3 %; Nucleated Red Blood Cells % 0 %; Platelet Count 244 10^3/cmm (157-399); Red Blood Count 4.86 10^6/uL (3.85-5.65); Red Cell Distribution Width 12.9 % (12.1-15.1)
[2023-12-21 13:00] VITALS: PULSE 79; RESP 18; O2SAT 96
[2023-12-21 13:05] LABS: Lactic Sepsis W/Reflex 1.8 mmol/L (0.5-2.2)
[2023-12-21] MEDS: sodium chloride 0.9% 1,000 ML 999 ML IV ×2 (13:05→14:43)
[2023-12-21 13:06] LABS: Alanine Aminotransferase 21 U/L (0-41); Albumin Level 3.8 g/dL (3.5-5.2); Alkaline Phosphatase 69 U/L (40-130); Anion Gap 14.5 (5-19); Aspartate Amino Transferase 30 U/L (0-40); Blood Urea Nitrogen 12 mg/dL (6-20); Calcium 8.7 mg/dL (8.5-10.5); Carbon Dioxide 24 mmol/L (22-29); Chloride 97 mmol/L (98-107); Globulin 3.5 g/dL (1.3-4.6); Glomerular Filtration Rate 58.9 mL/min (90-130); Glucose 88 mg/dL (65-115); Osmolality Calculated 273 mOsm/kg (285-295); Potassium 3.5 mmol/L (3.5-5.1); Sodium 132 mmol/L (136-145); Total Bilirubin 0.7 mg/dL (0.15-1.2); Total Protein 7.3 g/dL (6.6-8.7)
[2023-12-21 13:08] LABS: Troponin(5th) Baseline 16 ng/L (0-15)
--- NOTE | 2023-12-21 13:53 | ECG_ITS ---
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 Measurements Intervals [place] Rate: 86 P: 89 SC: 130 QRS: 14 QRSD: 104 T: 114 QT: 340 QTc: 409 Interpretive Statements SINUS RHYTHM LOW QRS VOLTAGE IN PRECORDIAL LEADS [QRS DEFLECTION < 1.0 mV IN CHEST LEADS] INCOMPLETE RIGHT BUNDLE BRANCH BLOCK [90+ ms QRS DURATION, TERMINAL R IN V1/V2, 40+ ms S IN I/aVL/V4/V5/V6] ABNORMAL QRS-T ANGLE [QRS-T AXIS DIFFERENCE > 60] Compared to ECG 12/21/2023 12:05:14 Low QRS voltage now present Electronically Signed On 12-22-2023 12:44:41 CDT by Stephan Merida M.D. [id number]
[2023-12-21 13:54] LABS: Creatinine Clr Calc Pharmacy 87.5647
[2023-12-21 15:12] VITALS: BP 108/61; PULSE 86; RESP 18; O2SAT 96
[2023-12-21 15:28] LABS: Adenovirus Not Detected (NOT DETECT); Chlamydia Pneumoniae Not Detected (NOT DETECT); Coronavirus 229E,HKU1,NL63,OC4 Not Detected (NOT DETECT); Human Metapneumovirus Not Detected (NOT DETECT); Human Rhinovirus/Enterovirus Not Detected (NOT DETECT); Influenza A Not Detected (NOT DETECT); Influenza A H1 Not Detected (NOT DETECT); Influenza A H1-2009 Not Detected (NOT DETECT); Influenza A H3 Not Detected (NOT DETECT); Influenza B Not Detected (NOT DETECT); Mycoplasma Pneumoniae Not Detected (NOT DETECT); Parainfluenza Virus Type 1 Not Detected (NOT DETECT); Parainfluenza Virus Type 2 Not Detected (NOT DETECT); Parainfluenza Virus Type 3 Detected (NOT DETECT); Parainfluenza Virus Type 4 Not Detected (NOT DETECT); Respiratory Syncytial Virus A Not Detected (NOT DETECT); Respiratory Syncytial Virus B Not Detected (NOT DETECT); SARS-COV-2 Not Detected (NOT DETECT)
[2023-12-21 16:08] VITALS: BP 108/61; PULSE 86; RESP 18; TEMP 37.6; O2SAT 96
== END 2023-12-21 16:09 | disposition home or self-care (01) ==
PROVIDERS: Emergency Medicine; Emergency Provider Family Medicine; PCP Emergency Medicine Emergency Medical Services
DX: J06.9 Acute upper respiratory infection, unspecified (principal); R05.9 Cough, unspecified; Z11.52 Encounter for screening for COVID-19
CPT/HCPCS: 36415; 71045; 80053; 83605; 84484; 85025; 87040; 87486; 87581; 87633; 93005; 96360; 96361; 99285; J7030

== ENCOUNTER 2024-12-22 16:30 | Emergency (ER) | payer OTHER, SELFPAY ==
[2024-12-22 16:38] VITALS: BP 118/87; PULSE 97; RESP 18; TEMP 36.3; O2SAT 97; BMI 36.2
--- NOTE | 2024-12-22 17:11 | USR_ITS ---
PROCEDURE INFORMATION: Exam: US Duplex Left Lower Extremity Veins, Limited Exam date and time: 12/22/2024 5:26 PM Age: 49 years old Clinical indication: Pain; Leg, lower; Patient states that he heard a pop in the left calf last Saturday night when running; Additional info: Lle swelling TECHNIQUE: Imaging protocol: Real-time duplex ultrasound of the left extremity with 2-D pat scale, color Doppler flow and spectral waveform analysis including responses to compression and other maneuvers (when performed) with image documentation. Limited exam focused on the left lower extremity veins. COMPARISON: CR (LOW EXM, ) 12/22/2024 5:12 PM FINDINGS: Left deep veins: Unremarkable. The common femoral, femoral, proximal profunda femoral and popliteal veins are patent without thrombus. Normal Doppler waveforms. Normal compressibility and/or augmentation response. Superficial veins: Greater saphenous vein at the saphenofemoral junction is patent without thrombus. Soft tissues: Hypoechoic area in the posterior left calf soft tissues which may represent edema or fluid from a leak posterior Haider's cyst. US/[place] [id number] IMPRESSION: No evidence of deep vein thrombosis. Fluid within the subcutaneous soft tissues in the posterior calf may relate to posterior leak Haider's cyst. Short-term interval follow up is recommended to ensure stability or resolution.
--- NOTE | 2024-12-22 17:11 | XRR_ITS ---
PROCEDURE INFORMATION: Exam: XR Left Tibia and Fibula Exam date and time: 12/22/2024 5:12 PM Age: 49 years old Clinical indication: Pain; Lower leg; Left TECHNIQUE: Imaging protocol: Radiologic exam of the left tibia and fibula. Views: 2 views. COMPARISON: No relevant prior studies available. FINDINGS: Bones/joints: Normal. Soft tissues: Normal. XR/XR tibia fibula LT 2V [id number] IMPRESSION: No acute findings.
--- NOTE | 2024-12-22 17:12 | W.ED.EXTPRO ---
HPI - Extremity Problem General: Chief complaint: Extremity Injury, Lower Stated complaint: L leg pain Time Seen by Provider: 12/22/24 16:54 History of Present Illness: 49-year-old male is presenting with left lower extremity pain and swelling. He states on Saturday he was going for a jog and felt a pop in his calf and since then has been hurting and using ibuprofen. He stopped taking ibuprofen out his red and swollen and hurts. He denies fall or trauma or injury denies fever chills denies any chest pain or shortness of breath. Denies any other injuries. Associated symptoms: Deny chest pain, fever(s) or rash Related Data Previous Rx's ?Medication ?Instructions ?Recorded diclofenac sodium 75 mg 75 mg PO Q12H PRN pain #20 tabs 01/03/23 tablet,delayed release albuterol sulfate 90 mcg/actuation 2 inh inhalation Q4H PRN shortness 12/21/23 aerosol inhaler of breath or wheezing #18 grams ibuprofen 600 mg tablet 600 mg PO Q8H PRN pain #30 tabs 12/22/24 oxycodone-acetaminophen 5 mg-325 1 tab PO Q8H PRN pain #10 tabs 12/22/24 mg tablet (Percocet) Allergies Allergy/AdvReac Type Severity Reaction Status Date / Time antibiotic for pseudomonas Allergy ALGY-Rash Uncoded 12/22/24 16:45 Review of Systems Const: Reports: malaise; Denies: fever(s), chills or diaphoresis Card: Denies: chest pain, palpitations or syncope Resp: Denies: dyspnea GI: Reports: vomiting; Denies: abdominal pain or nausea : Denies: dysuria, urinary frequency or urinary urgency Musc: Reports: extremity pain and extremity swelling Skin/Breast: Denies: rash Neuro: Reports: headache(s); Denies: confusion PFSH ED PFSH: Medical History (Updated 12/22/24 @ 18:52 by Diana Patel MD) Psychiatric care IV drug abuse Endocarditis of tricuspid valve Surgical History H/O tricuspid valve replacement Physical Exam Const: GENERAL APPEARANCE: cooperative and comfortable ORIENTATION/CONSCIOUSNESS: Yes awake, Yes oriented to person, Yes oriented to place and Yes oriented to time HENMT: COMMON NORMALS: normocephalic, atraumatic and hearing grossly normal bilaterally HEAD & SCALP: normocephalic and atraumatic Resp: COMMON NORMALS: clear to auscultation bilaterally AUSCULTATION: clear to auscultation bilaterally, no rhonchi and no wheezes Cardio: COMMON NORMALS: regular rate, regular rhythm and No murmurs present (Cardio) RATE: regular rate RHYTHM: regular rhythm GI: COMMON NORMALS: Soft to palpation and No hepatosplenomegaly present AUSCULTATION: Yes normoactive bowel sounds PALPATION: Yes Soft to palpation, No Tenderness to palpation present (GI), No Guarding due to palpation present (GI) and Yes No hepatosplenomegaly present Extremity: COMMON NORMALS: normal to inspection and capillary refill normal NARRATIVE EXTREMITY EXAM: Left lower extremity pitting edema 1+, calf tenderness, erythema and warmth to the inner aspect superior to the ankle distally neurovascularly intact including normal DP PT pulses sensation and cap refill. Neuro: SENSORIUM/ORIENTATION: Yes oriented to person, Yes oriented to place and Yes oriented to time Skin: COMMON NORMALS: no rashes or lesions noted GENERAL SKIN EXAM: no rashes or lesions noted Course Vital Signs: Vital signs: Vital Signs Temperature 97.4 F L 12/22/24 16:38 Pulse Rate 97 12/22/24 16:38 Respiratory Rate 18 12/22/24 16:38 Blood Pressure 118/87 12/22/24 16:38 Pulse Oximetry 97 12/22/24 16:38 Oxygen Delivery Me thod Room Air 12/22/24 16:38 MDM - Extremity (Nontraumatic) Medical Decision Making Patient is presenting with left lower extremity edema erythema and warmth consistent with cellulitis which we will cover with antibiotics, given popping sound and tenderness this and mechanism this may be secondary to calf strain versus Achilles tendon rupture though on exam I feel a normal Achilles tendon with no depression no tenderness over the Achilles tendon itself, will obtain ultrasound to rule out DVT obtain x-ray of the left lower extremity to evaluate for bony pathology, he is able to plantarflex Lab Data Radiology Impressions Tibia/Fibula X-Ray 12/22/24 17:11 IMPRESSION: No acute findings. Venous Duplex 12/22/24 17:11 IMPRESSION: No evidence of deep vein thrombosis. Fluid within the subcutaneous soft tissues in the posterior calf may relate to posterior leak Haider's cyst. Short-term interval follow up is recommended to ensure stability or resolution. Imaging negative for bony pathology on x-ray, no DVT. Clinically consistent with calf muscle tear as the likely cause of fluid in the posterior calf versus Haider's cyst leak. There is some evidence of erythema and warmth concerning for infection will treat patient with a course of antibiotics. Splint, rest ice elevation crutches. All radiology interpretation(s) finalized by discharge Discharge Plan Discharge Patient Disposition: Home Clinical Impression: Strain of left calf muscle, Cellulitis of left leg Condition: Stable Prescriptions: New oxycodone-acetaminophen [Percocet] 5-325 mg tablet 1 tab PO Q8H PRN (Reason: pain) Qty: 10 0RF ibuprofen 600 mg tablet 600 mg PO Q8H PRN (Reason: pain) Qty: 30 0RF No Action albuterol sulfate 90 mcg/actuation HFA aerosol inhaler 2 inh INHALATION Q4H PRN (Reason: shortness of breath or wheezing) Qty: 18 0RF diclofenac sodium 75 mg tablet,delayed release (DR/EC) 75 mg PO Q12H PRN (Reason: pain) Qty: 20 0RF Discharge Orders: Discharge ED (Routine); Ordered 12/22/24 Ordered By: Diana Patel Referrals: Geena Bhatia MD [Primary Care Provider, Family Practice] Patient Instructions: Cellulitis (ED) Activity Restrictions/Additional Instructions: Use splint and crutches to rest your left lower extremities, weight-bear as tolerated, elevate and ice. Print Language: Albanian Coding Level of Care Code ED Software Configuration Manager for Cesar Saucedo
[2024-12-22] MEDS: ibuprofen 800 mg tablet PO (17:44)
[2024-12-22] MEDS: cephALEXin 500 mg Capsule PO (17:44)
[2024-12-22] MEDS: oxyCODONE-APAP 5-325 mg Tablet 1 TAB PO (19:17)
--- NOTE | 2024-12-22 19:27 | PC.NURSE ---
facility called for report on pt at this time awaiting approval for transfer.
[2024-12-22 19:36] VITALS: BP 137/88; PULSE 77; RESP 16; O2SAT 100
--- NOTE | 2024-12-23 07:59 | W.ED.EXTPRO ---
HPI - Extremity Problem General: Chief complaint: Extremity Injury, Lower Stated complaint: L leg pain Time Seen by Provider: 12/22/24 16:54 Related Data Previous Rx's ?Medication ?Instructions ?Recorded diclofenac sodium 75 mg 75 mg PO Q12H PRN pain #20 tabs 01/03/23 tablet,delayed release albuterol sulfate 90 mcg/actuation 2 inh inhalation Q4H PRN shortness 12/21/23 aerosol inhaler of breath or wheezing #18 grams cephalexin 500 mg tablet 500 mg PO QID 7 days #28 tabs 12/22/24 ibuprofen 600 mg tablet 600 mg PO Q8H PRN pain #30 tabs 12/22/24 oxycodone-acetaminophen 5 mg-325 1 tab PO Q8H PRN pain #10 tabs 12/22/24 mg tablet (Percocet) Allergies Allergy/AdvReac Type Severity Reaction Status Date / Time antibiotic for pseudomonas Allergy ALGY-Rash Uncoded 12/22/24 16:45 PFSH ED PFSH: Medical History (Updated 12/22/24 @ 18:52 by Diana Patel MD) Psychiatric care IV drug abuse Endocarditis of tricuspid valve Surgical History H/O tricuspid valve replacement Course Vital Signs: Vital signs: Vital Signs Temperature 97.4 F L 12/22/24 16:38 Pulse Rate 77 12/22/24 19:36 Respiratory Rate 16 12/22/24 19:36 Blood Pressure 137/88 12/22/24 19:36 Pulse Oximetry 100 12/22/24 19:36 Oxygen Delivery Me thod Room Air 12/22/24 16:38 MDM - Extremity (Nontraumatic) Lab Data Radiology Impressions Tibia/Fibula X-Ray 12/22/24 17:11 IMPRESSION: No acute findings. Venous Duplex 12/22/24 17:11 IMPRESSION: No evidence of deep vein thrombosis. Fluid within the subcutaneous soft tissues in the posterior calf may relate to posterior leak Haider's cyst. Short-term interval follow up is recommended to ensure stability or resolution. Discharge Plan Discharge Patient Disposition: Home Clinical Impression: Strain of left calf muscle, Cellulitis of left leg Condition: Stable Prescriptions: New oxycodone-acetaminophen [Percocet] 5-325 mg tablet 1 tab PO Q8H PRN (Reason: pain) Qty: 10 0RF ibuprofen 600 mg tablet 600 mg PO Q8H PRN (Reason: pain) Qty: 30 0RF cephalexin 500 mg tablet 500 mg PO QID 7 Days Qty: 28 0RF No Action albuterol sulfate 90 mcg/actuation HFA aerosol inhaler 2 inh INHALATION Q4H PRN (Reason: shortness of breath or wheezing) Qty: 18 0RF diclofenac sodium 75 mg tablet,delayed release (DR/EC) 75 mg PO Q12H PRN (Reason: pain) Qty: 20 0RF Discharge Orders: Discharge ED (Routine); Ordered 12/22/24 Ordered By: Diana Patel Referrals: Geena Bhatia MD [Primary Care Provider, Family Practice] Patient Instructions: Cellulitis (ED) Activity Restrictions/Additional Instructions: Use splint and crutches to rest your left lower extremities, weight-bear as tolerated, elevate and ice. Print Language: Slovenian Coding Level of Care Code ED Supervisory Cbp Officer for Cesar Saucedo
== END 2024-12-22 19:38 | disposition home or self-care (01) ==
PROVIDERS: Emergency Provider Emergency Medicine; PCP Family Medicine
DX: L03.116 Cellulitis of left lower limb (principal); S86.812A Strain of other muscle(s) and tendon(s) at lower leg level, left leg, initial encounter; X58.XXXA Exposure to other specified factors, initial encounter
CPT/HCPCS: 73590; 93971; 99284; J9999

== ENCOUNTER 2024-12-30 14:50 | Emergency (ER) | payer OTHER, SELFPAY ==
[2024-12-30 15:00] VITALS: BP 118/80; PULSE 83; RESP 16; TEMP 36.2; O2SAT 98; BMI 35.5
[2024-12-30 15:48] LABS: Basophils # 0.2 10^3/uL (0.0-0.1); Basophils % 1.5 %; Eosinophils # 0.4 10^3/uL (0.0-0.8); Eosinophils % 3.7 %; Hematocrit 48.2 % (37-53); Lymphocytes # 4.7 10^3/uL (0.8-4.8); Lymphocytes % 45.4 %; Mean Platelet Volume 9.5 fL (7.4-10.4); Monocytes % 9.9 %; Neutrophils # 4.07 10^3/uL (1.8-7.7); Neutrophils % 39.2 %; Nucleated Red Blood Cells % 0 %; Platelet Count 251 10^3/cmm (157-399); Red Blood Count 5.13 10^6/uL (3.85-5.65); Red Cell Distribution Width 13.3 % (12.1-15.1); White Blood Count 10.34 10^3/uL (3.29-11.43)
[2024-12-30 15:56] LABS: Erythrocyte Sedimentation Rate 9 mm/hr (0-10)
--- NOTE | 2024-12-30 16:18 | USR_ITS ---
PROCEDURE INFORMATION: Exam: US Duplex Left Lower Extremity Veins, Limited Exam date and time: 12/30/2024 5:07 PM Age: 49 years old Clinical indication: Pain; Leg, lower; Left; Additional info: Pain and swelling TECHNIQUE: Imaging protocol: Real-time duplex ultrasound of the left extremity with 2-D pat scale, color Doppler flow and spectral waveform analysis including responses to compression and other maneuvers (when performed) with image documentation. Limited exam focused on the left lower extremity veins. COMPARISON: US CV venous duplex [facility] [id number] 12/22/2024 5:26 PM FINDINGS: Left deep veins: Unremarkable. The common femoral, femoral, proximal profunda femoral and popliteal veins are patent without thrombus. Normal Doppler waveforms. Normal compressibility and/or augmentation response. Superficial veins: Greater saphenous vein at the saphenofemoral junction is patent without thrombus. Soft tissues: There is subcutaneous edema involving the left lower extremity. Redemonstration of persistent anechoic area in the left calf soft tissues which again may represent fluid from a posterior leaking Haider's cyst. A follow up MRI can be performed to exclude additional etiologies. US/CV venous duplex [facility] [id number] IMPRESSION: No evidence of deep vein thrombosis. . Redemonstration of persistent anechoic area in the left calf soft tissues which again may represent fluid from a posterior leaking Haider's cyst. A follow up MRI can be performed to exclude additional etiologies.
[2024-12-30 16:39] LABS: Slide Review Slide Review Perform
[2024-12-30 17:02] LABS: Alanine Aminotransferase 80 U/L (0-41); Albumin Level 3.9 g/dL (3.5-5.2); Alkaline Phosphatase 152 U/L (40-130); Anion Gap 19.9 (5-19); Aspartate Amino Transferase 72 U/L (0-40); Blood Urea Nitrogen 22 mg/dL (6-20); C Reactive Protein 17.6 mg/L (0.0-4.9); Calcium 9.2 mg/dL (8.5-10.5); Carbon Dioxide 20 mmol/L (22-29); Chloride 103 mmol/L (98-107); Creatinine Clr Calc Pharmacy 115.5781; Globulin 3.6 g/dL (1.3-4.6); Glomerular Filtration Rate 79.4 mL/min (90-130); Glucose 92 mg/dL (65-115); Osmolality Calculated 291 mOsm/kg (285-295); Potassium 3.9 mmol/L (3.5-5.1); Sodium 139 mmol/L (136-145); Total Protein 7.5 g/dL (6.6-8.7)
--- NOTE | 2024-12-30 19:00 | W.ED.EXTPRO ---
HPI - Extremity Problem General: Chief complaint: Extremity Problem,Nontraumatic Stated complaint: leg infection not improving Time Seen by Provider: 12/30/24 15:46 History of Present Illness: This patient is a 49-year-old white male who presents to the emergency department with pain and swelling of the left lower extremity as well as erythema. Patient tore or strained his left calf muscle about 10 days ago. He did have an ultrasound at that time which was negative for DVT and consistent with a calf tear. Patient developed erythema and then was placed on Keflex. He is concerned about increased swelling and increased redness of the left lower extremity today. He has not had a fever. No chest pain or shortness of breath. Related Data Home Medications ?Medication ?Instructions ?Recorded ?Confirmed cephalexin 500 mg capsule 500 mg PO QID 12/30/24 12/30/24 Previous Rx's ?Medication ?Instructions ?Recorded ibuprofen 600 mg tablet 600 mg PO Q8H PRN pain #30 tabs 12/22/24 oxycodone-acetaminophen 5 mg-325 1 tab PO Q8H PRN pain #10 tabs 12/23/24 mg tablet (Percocet) clindamycin HCl 300 mg capsule 300 mg PO QID 10 days #40 caps 12/30/24 (Cleocin HCl) Allergies Allergy/AdvReac Type Severity Reaction Status Date / Time antibiotic for pseudomonas Allergy ALGY-Rash Uncoded 12/22/24 16:45 Review of Systems General: Reports: 10 or more systems reviewed and unremarkable except in HPI and below Musc: Reports: extremity pain and extremity swelling FOR[facility]LY [facility], [facility]–1983 ED PFSH: Medical History (Updated 12/30/24 @ 18:52 by Yung Altamirano MD) Psychiatric care IV drug abuse Endocarditis of tricuspid valve Surgical History H/O tricuspid valve replacement Physical Exam Const: COMMON NORMALS: no acute distress, patient oriented x3 and no limitations GENERAL APPEARANCE: cooperative and comfortable HENMT: COMMON NORMALS: normocephalic, atraumatic, Normal nasal mucous membranes and turbinates present, moist oral mucous membranes and oropharynx normal HEAD & SCALP: normal to inspection, normocephalic and atraumatic FACE & SINUS: normal facial exam NOSE: Normal nasal mucous membranes and turbinates present Eye: COMMON NORMALS: Equal, round and reactive pupils present, EOMs intact bilaterally and conjunctivae normal GENERAL EYE: appearance normal, both eyes and all related structures CONJUNCTIVA: Yes conjunctivae normal PUPIL: Yes Equal, round and reactive pupils present Neck/C-Spine: COMMON NORMALS: supple and no JVD Chest: COMMONS NORMALS: normal inspection of the chest Resp: COMMON NORMALS: normal respiratory effort and clear to auscultation bilaterally AUSCULTATION: clear to auscultation bilaterally Cardio: COMMON NORMALS: no JVD, regular rate, regular rhythm, No gallops present (Cardio), No murmurs present (Cardio) and No rub (Cardio) RATE: regular rate RHYTHM: regular rhythm GI: COMMON NORMALS: Normal to inspection, nondistended, normoactive bowel sounds present, Soft to palpation and non-tender AUSCULTATION: Yes normoactive bowel sounds PALPATION: Yes Soft to palpation : COMMON NORMALS: Yes no CVA tenderness BLADDER/KIDNEY EXAM: Yes no CVA tenderness Back/Pelvis: COMMON NORMALS: no CVA tenderness and thoracic and lumbar spine normal to inspection Extremity: NARRATIVE EXTREMITY EXAM: Swelling of the left lower leg to just above the left knee. Some mild diffuse erythema of the left lower leg. Pain to palpation of left calf. Neuro: COMMON NORMALS: patient oriented x3 and CN's II-XII intact bilaterally Psych: COMMON NORMALS: mental status grossly normal, Normal thought process present and cooperative THOUGHT PROCESS: Normal thought process present Skin: COMMON NORMALS: no rashes or lesions noted, turgor normal and no jaundice GENERAL SKIN EXAM: no rashes or lesions noted and turgor normal Course Vital Signs: Vital signs: Vital Signs Temperature 97.2 F L 12/30/24 15:00 Pulse Rate 83 12/30/24 15:00 Respiratory Rate 16 12/30/24 15:00 Blood Pressure 118/80 12/30/24 15:00 Pulse Oximetry 98 12/30/24 15:00 Oxygen Delivery Me thod Room Air 12/30/24 15:00 MDM - Extremity (Nontraumatic) Medical Decision Making Repeat venous duplex scan of the left lower extremity today again does not reveal DVT. CBC and CMP were normal. ESR was 9 with a CRP of 17.6. I did add clindamycin to the patient's medication regimen. Recommended he follow-up with his primary care physician next week for recheck. He was discharged in stable condition. Lab Data 12/30/24 15:35 12/30/24 15:35 Radiology Impressions Venous Duplex 12/30/24 16:18 IMPRESSION: No evidence of deep vein thrombosis. . Redemonstration of persistent anechoic area in the left calf soft tissues which again may represent fluid from a posterior leaking Haider's cyst. A follow up MRI can be performed to exclude additional etiologies. Laboratory Results WBC 10.34 10^3/uL (3.29-11.43) 12/30/24 15:35 RBC 5.13 10^6/uL (3.85-5.65) 12/30/24 15:35 Hgb 16.40 g/dL (11.27-16.99) 12/30/24 15:35 Hct 48.2 % (37-53) 12/30/24 15:35 MCV 94.0 fl (82-101) 12/30/24 15:35 MCH 32.0 pg (27-33) 12/30/24 15:35 MCHC 34.0 g/dL (30-55) 12/30/24 15:35 RDW 13.3 % (12.1-15.1) 12/30/24 15:35 Plt Count 251 10^3/cmm (157-399) 12/30/24 15:35 MPV 9.5 fL (7.4-10.4) 12/30/24 15:35 Neut % (Auto) 39.2 % 12/30/24 15:35 Lymph % (Auto) 45.4 % 12/30/24 15:35 [place] % (Auto) 9.9 % 12/30/24 15:35 Eos % (Auto) 3.7 % 12/30/24 15:35 Baso % (Auto) 1.5 % 12/30/24 15:35 Neut # (Auto) 4.07 10^3/uL (1.8-7.7) 12/30/24 15:35 Lymph # (Auto) 4.7 10^3/uL (0.8-4.8) 12/30/24 15:35 [place] # (Auto) 1.0 10^3/uL (0.2-0.9) H 12/30/24 15:35 Eos # (Auto) 0.4 10^3/uL (0.0-0.8) 12/30/24 15:35 Baso # (Auto) 0.2 10^3/uL (0.0-0.1) H 12/30/24 15:35 Nucleated RBC % (auto) 0 % 12/30/24 15:35 Nucleated RBCs # 0.0 /100WBC 12/30/24 15:35 ESR 9 mm/hr (0-10) 12/30/24 15:35 Sodium 139 mmol/L (136-145) 12/30/24 15:35 Potassium 3.9 mmol/L (3.5-5.1) 12/30/24 15:35 Chloride 103 mmol/L (98-107) 12/30/24 15:35 Carbon Dioxide 20 mmol/L (22-29) L 12/30/24 15:35 Anion Gap 19.9 (5-19) H 12/30/24 15:35 BUN 22 mg/dL (6-20) H 12/30/24 15:35 Creatinine 1.0 mg/dL (0.7-1.2) 12/30/24 15:35 GFR Calculation 79.4 mL/min (90-130) L 12/30/24 15:35 Glucose 92 mg/dL (65-115) 12/30/24 15:35 Calculated Osmolality 291 mOsm/kg (285-295) 12/30/24 15:35 Calcium 9.2 mg/dL (8.5-10.5) 12/30/24 15:35 Total Bilirubin 1.0 mg/dL (0.15-1.2) 12/30/24 15:35 AST 72 U/L (0-40) H 12/30/24 15:35 ALT 80 U/L (0-41) H 12/30/24 15:35 Alkaline Phosphatase 152 U/L (40-130) H 12/30/24 15:35 C-Reactive Protein 17.6 mg/L (0.0-4.9) H 12/30/24 15:35 Total Protein 7.5 g/dL (6.6-8.7) 12/30/24 15:35 Albumin 3.9 g/dL (3.5-5.2) 12/30/24 15:35 Globulin 3.6 g/dL (1.3-4.6) 12/30/24 15:35 All radiology interpretation(s) finalized by discharge Discharge Plan Discharge Patient Disposition: Home Clinical Impression: Cellulitis Qualifiers: Site of cellulitis: extremity Site of cellulitis of extremity: lower extremity Laterality: left Qualified Code(s): L03.116 - Cellulitis of left lower limb Condition: Stable Prescriptions: New clindamycin HCl [Cleocin HCl] 300 mg capsule 300 mg PO QID 10 Days Qty: 40 0RF No Action ibuprofen 600 mg tablet 600 mg PO Q8H PRN (Reason: pain) Qty: 30 0RF oxycodone-acetaminophen [Percocet] 5-325 mg tablet 1 tab PO Q8H PRN (Reason: pain) Qty: 10 0RF cephalexin 500 mg capsule 500 mg PO QID Discharge Orders: Discharge ED (Routine); Ordered 12/30/24 Ordered By: Yung Altamirano Referrals: Geena Bhatia MD [Primary Care Provider, Family Practice] Patient Instructions: Cellulitis, Opioid Safety, Pain Management Activity Restrictions/Additional Instructions: Follow-up with your primary care physician for recheck next week and ongoing pain management. Print Language: East Timorese Coding Level of Care Code ED Cleaner And Polisher for Cesar Saucedo
[2024-12-30 19:13] VITALS: BP 142/84; PULSE 77; O2SAT 100
== END 2024-12-30 19:18 | disposition home or self-care (01) ==
PROVIDERS: Emergency Medicine; Emergency Provider Emergency Medicine; PCP Family Medicine
DX: L03.116 Cellulitis of left lower limb (principal)
CPT/HCPCS: 36415; 80053; 85025; 85651; 86140; 93971; 99284

== ENCOUNTER 2025-01-05 18:21 | Emergency (ER) | payer OTHER, SELFPAY ==
[2025-01-05 18:32] VITALS: BP 133/87; PULSE 94; RESP 17; TEMP 36.8; O2SAT 97; BMI 34.8
--- NOTE | 2025-01-05 18:32 | USR_ITS ---
PROCEDURE INFORMATION: Exam: US Duplex Left Lower Extremity Veins, Limited Exam date and time: 01/05/2025 7:25 PM Age: 49 years old Clinical indication: Edema, localized; Lower extremity, left; Patient was seen this er 12/22/2024 for same symptoms - painful, swollen left calf. No known injury. 3+ pitting edema to left calf x 3 weeks. ; Additional info: Leg pain TECHNIQUE: Imaging protocol: Real-time duplex ultrasound of the left extremity with 2-D pat scale, color Doppler flow and spectral waveform analysis including responses to compression and other maneuvers (when performed) with image documentation. Limited exam focused on the left lower extremity veins. COMPARISON: [place] [id number] 12/30/2024 5:07 PM FINDINGS: Left deep veins: Unremarkable. The common femoral, femoral, proximal profunda femoral and popliteal veins are patent without thrombus. Normal Doppler waveforms. Normal compressibility and/or augmentation response. Superficial veins: Greater saphenous vein at the saphenofemoral junction is patent without thrombus. Soft tissues: Subcutaneous soft tissue edema in the lower [place]. US/[place] [id number] IMPRESSION: No evidence of deep vein thrombosis.
--- NOTE | 2025-01-05 19:01 | W.ED.EXTPRO ---
HPI - Extremity Problem General: Chief complaint: Extremity Problem,Nontraumatic Stated complaint: L leg possible blood clot Time Seen by Provider: 01/05/25 18:35 Source: patient Mode of arrival: ambulatory Limitations: no limitations History of Present Illness: 49-year-old male who states that he had a calf tear in his left lower leg 3 weeks ago patient states has been following with his PCP states that today had had some calf swelling states that him here to rule out a DVT states he has had some swelling since the injury pain rates it a 4-10 denies any fevers. Denies any new injuries Associated symptoms: Deny chest pain, fever(s) or rash Related Data Home Medications ?Medication ?Instructions ?Recorded ?Confirmed cephalexin 500 mg capsule 500 mg PO QID 12/30/24 12/30/24 Previous Rx's ?Medication ?Instructions ?Recorded ibuprofen 600 mg tablet 600 mg PO Q8H PRN pain #30 tabs 12/22/24 oxycodone-acetaminophen 5 mg-325 1 tab PO Q8H PRN pain #10 tabs 12/23/24 mg tablet (Percocet) clindamycin HCl 300 mg capsule 300 mg PO QID 10 days #40 caps 12/30/24 (Cleocin HCl) Allergies Allergy/AdvReac Type Severity Reaction Status Date / Time antibiotic for pseudomonas Allergy ALGY-Rash Uncoded 12/22/24 16:45 Review of Systems Const: Denies: fever(s), chills, body aches or change in appetite ENMT: Denies: throat pain or dental pain Card: Denies: chest pain Resp: Denies: dyspnea GI: Denies: abdominal pain, nausea, vomiting or diarrhea Musc: Reports: extremity pain; Denies: neck pain or back pain Skin/Breast: Denies: rash Neuro: Denies: headache(s) PFSH ED PFSH: Medical History Psychiatric care IV drug abuse Endocarditis of tricuspid valve Surgical History H/O tricuspid valve replacement Physical Exam Const: COMMON NORMALS: no acute distress, patient oriented x3 and healthy appearing HENMT: COMMON NORMALS: normocephalic and atraumatic HEAD & SCALP: normocephalic and atraumatic Eye: COMMON NORMALS: conjunctivae normal CONJUNCTIVA: Yes conjunctivae normal Neck/C-Spine: COMMON NORMALS: full ROM and supple Chest: COMMONS NORMALS: normal inspection of the chest Resp: COMMON NORMALS: normal respiratory effort Cardio: COMMON NORMALS: regular rate RATE: regular rate Extremity: COMMON NORMALS: full ROM NARRATIVE EXTREMITY EXAM: Swelling tenderness noted to left calf muscle no warmth to touch distal pulses sensation intact Neuro: COMMON NORMALS: patient oriented x3, moves all extremities and no focal motor deficits Psych: COMMON NORMALS: mental status grossly normal, Normal thought process present and cooperative THOUGHT PROCESS: Normal thought process present Skin: COMMON NORMALS: no rashes or lesions noted and no wounds GENERAL SKIN EXAM: no rashes or lesions noted Course Vital Signs: Vital signs: Vital Signs Temperature 98.2 F 01/05/25 18:32 Pulse Rate 94 01/05/25 19:05 Respiratory Rate 17 01/05/25 18:32 Blood Pressure 153/94 01/05/25 19:05 Pulse Oximetry 96 01/05/25 19:05 Oxygen Delivery Me thod Room Air 01/05/25 19:05 MDM - Extremity (Nontraumatic) Medical Decision Making Patient presents here with leg pain likely from his calf tear ultrasound no DVT he is stable for discharge follow-up with PCP return if worsening. Medical Records I reviewed the patient's medical records. Lab Data Radiology Impressions Venous Duplex 01/05/25 18:32 IMPRESSION: No evidence of deep vein thrombosis. All radiology interpretation(s) finalized by discharge Discharge Plan Discharge Patient Disposition: Home Clinical Impression: Left leg pain Condition: Stable Prescriptions: No Action ibuprofen 600 mg tablet 600 mg PO Q8H PRN (Reason: pain) Qty: 30 0RF oxycodone-acetaminophen [Percocet] 5-325 mg tablet 1 tab PO Q8H PRN (Reason: pain) Qty: 10 0RF cephalexin 500 mg capsule 500 mg PO QID clindamycin HCl [Cleocin HCl] 300 mg capsule 300 mg PO QID 10 Days Qty: 40 0RF Discharge Orders: Discharge ED (Routine); Ordered 01/05/25 Ordered By: Paige Ham Referrals: Geena Bhatia MD [Primary Care Provider, Family Practice] - 4-7 days Discharge Diet: Advance as tolerated Discharge Activity: Resume usual activity Patient Instructions: Leg Pain (ED) Print Language: Slovak Coding Level of Care Code ED Deputy Editor In Chief for Cesar Saucedo
[2025-01-05 19:05] VITALS: BP 153/94; PULSE 94; O2SAT 96
[2025-01-05 20:19] VITALS: BP 108/60; PULSE 88; O2SAT 98
== END 2025-01-05 20:20 | disposition home or self-care (01) ==
PROVIDERS: Emergency Provider Emergency Medicine; PCP Family Medicine
DX: M79.605 Pain in left leg (principal)
CPT/HCPCS: 93971; 99284

== ENCOUNTER 2025-05-26 10:35 | Emergency (ER) | payer OTHER, SELFPAY ==
[2025-05-26 10:36] VITALS: BP 161/90; PULSE 79; RESP 18; TEMP 36.8; O2SAT 98; BMI 37.3
--- NOTE | 2025-05-26 10:38 | XR_ITS ---
WS: [id number] Portable AP upright chest, 05/26/2025 Clinical Data: cp Comparison: None. Findings: No nodules, masses or effusions are seen. The heart is normal. The pulmonary vascularity is not increased. No pneumonia or pneumothorax is seen. Midline sternotomy sutures are present. There is a tricuspid valve replacement. Midline sternotomy sutures are present. The aortic arch and descending thoracic aorta show tortuosity. XR/XR chest 1V portable [id number] Impression: Atherosclerosis.
--- NOTE | 2025-05-26 10:38 | ECG_ITS ---
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
[2025-05-26 10:53] LABS: Hematocrit 51.3 % (37-53); Hemoglobin 17.60 g/dL (11.27-16.99); Mean Corpuscular HGB Conc 34.3 g/dL (30-55); Mean Corpuscular Hemoglobin 31.7 pg (27-33); Mean Corpuscular Volume 92.3 fl (82-101); Nucleated Red Blood Cells % 0 %; Platelet Count 292 10^3/cmm (157-399); Red Blood Count 5.56 10^6/uL (3.85-5.65); White Blood Count 9.32 10^3/uL (3.29-11.43)
--- NOTE | 2025-05-26 10:53 | ED_ITS ---
HPI - Chest Pain 2 General: Chief Complaint: Chest Pain Stated Complaint: cp , slight sob, bilat leg swelling, dizzy Time Seen by Provider: 05/26/25 10:50 History of Present Illness: 49-year-old male with a history of metha mphetamine abuse and a valve replacement in the past who presents to the emergency room with chest tightness and shortness of breath. He last took meth 2 days ago and he is now in a rehab. Says he has not seen cardiology in a while. No focal chest pain. No nausea or vomiting. No diaphoresis. No known cardiac history. Related Data Home Medications ?Medication ?Instructions ?Recorded ?Confirmed cephalexin 500 mg capsule 500 mg PO QID 12/30/2412/30 Previous Rx's ?Medication ?Instructions ?Recorded ibuprofen 600 mg tablet 600 mg PO Q8H PRN pain #30 t abs 12/22/24 oxycodone-acetaminophen 5 mg-325 1 tab PO Q8H PRN pain #10 tabs 12/23/24 mg tablet (Percocet) Allergies Allergy/AdvReac Type Severity Reaction Status Date / Time antibiotic for pseudomonas Allergy ALGY-Rash Uncoded 12/22/24 16:45 Review of Systems 2 Narrative: Constitutional symptoms: Negative except as documented in HPI. Skin symptoms: Negative except as documented in HPI. Eye symptoms: Negative except as documented in HPI. ENMT symptoms: Negative except as documented in HPI. Respiratory symptoms: Negative except as documented in HPI. Cardiovascular symptoms: Negative except as documented in HPI. Gastrointestinal symptoms: Negative except as documented in HPI. Genitourinary symptoms: Negative except as documented in HPI. Musculoskeletal symptoms: Negative except as documented in HPI. Neurologic symptoms: Negative except as documented in HPI. Psychiatric symptoms: Negative except as documented in HPI. Endocrine symptoms: Negative except as documented in HPI. PFSH ED 2 PFSH: Medical History (Updated 05/26/25 @ 11:41 by Debbie Ware MD) IV drug abuse Endocarditis of tricuspid valve Surgical History H/O tricuspid valve replacement Physical Exam 2 Narrative: EXAM NARRATIVE: General: Alert, no acute distress. Skin: Warm, dry. Head: Normocephalic, atraumatic. Neck: Supple, trachea midline. Eye: Extraocular movements are intact. Ears, nose, mouth and throat: mucosa moist. Cardiovascular: Regular, Normal peripheral perfusion. Respiratory: Lungs are clear to auscultation, respirations are non-labored, breath sounds are equal, Symmetrical chest wall expansion. Gastrointestinal: Soft, Nontender, Non distended Musculoskeletal: Normal ROM, no deformity. Neurological: Alert and oriented, No focal neurological deficit observed. Psychiatric: Cooperative, appropriate mood & affect. Course 2 Vital Signs: Vital signs: Vital Signs Temperature 98.2 F 05/26/25 10:36 Pulse Rate 79 05/26/25 10:36 Respiratory Rate 18 05/26/25 10:36 Blood Pressure 161/90 05/26/25 10:36 Pulse Oximetry 98 05/26/25 10:36 MDM - Chest Pain Medical Decision Making Differential diagnosis for patient with chest pain includes but is not limited to and based on the above HPI, review of systems and physical exam: Pneumonia. unstable angina. angina. Acute coronary syndrome / [facility]. Pulmonary embolism. Costochondritis / musculoskeletal. Pleurisy. Pericarditis. Esophageal spasm. Pancreatis. Cholecystitis. Orders placed to evaluate differential diagnosis based on the above differential, HPI and physical exam EKG: Time 10:40 AM. Rate 72. Normal sinus rhythm, No ST-T changes, no ectopy, normal GA & QRS intervals, This was reviewed and interpreted by myself the ER physician at 10:45 AM Chest x-ray: No acute process. No infiltrate. No pneumothorax. This was reviewed and interpreted by myself the emergency room physician. I also reviewed the radiology report. Lab Review: Laboratory results were reviewed and interpreted by myself the emergency room physician. No leukocytosis. No anemia. No renal failure. Troponin is negative. I reviewed the patient's medical record. Reexamination: Patient remained stable. No increased work of breathing. No altered mental status. No focal motor deficits. Assessment and plan: Noncardiac chest pain Dyspnea - Discharged home - Discussed plan with patient. Answered any questions. - Evaluation and treatment of this problem were appropriate in the emergency setting. Lab Data 05/26/25 10:48 05/26/25 10:48 Radiology Impressions Chest X-Ray 05/26/25 10:38 Impression: Atherosclerosis. Laboratory Results WBC 9.32 10^3/uL (3.29-11.43) 05/26/25 10:48 RBC 5.56 10^6/uL (3.85-5.65) 05/26/25 10:48 Hgb 17.60 g/dL (11.27-16.99) H 05/26/25 10:48 Hct 51.3 % (37-53) 05/26/25 10:48 MCV 92.3 fl (82-101) 05/26/25 10:48 MCH 31.7 pg (27-33) 05/26/25 10:48 MCHC 34.3 g/dL (30-55) 05/26/25 10:48 RDW 13.7 % (12.1-15.1) 05/26/25 10:48 Plt Count 292 10^3/cmm (157-399) 05/26/25 10:48 MPV 9.1 fL (7.4-10.4) 05/26/25 10:48 Neut % (Auto) 57.9 % 05/26/25 10:48 Lymph % (Auto) 30.7 % 05/26/25 10:48 [place] % (Auto) 8.2 % 05/26/25 10:48 Eos % (Auto) 1.7 % 05/26/25 10:48 Baso % (Auto) 1.1 % 05/26/25 10:48 Neut # (Auto) 5.40 10^3/uL (1.8-7.7) 05/26/25 10:48 Lymph # (Auto) 2.9 10^3/uL (0.8-4.8) 05/26/25 10:48 [place] # (Auto) 0.8 10^3/uL (0.2-0.9) 05/26/25 10:48 Eos # (Auto) 0.2 10^3/uL (0.0-0.8) 05/26/25 10:48 Baso # (Auto) 0.1 10^3/uL (0.0-0.1) 05/26/25 10:48 Nucleated RBC % (auto) 0 % 05/26/25 10:48 Nucleated RBCs # 0.0 /100WBC 05/26/25 10:48 PT 13.00 SECONDS (12.1-14.9) 05/26/25 10:48 INR 0.92 (0.8-1.2) 05/26/25 10:48 Sodium 139 mmol/L (136-145) 05/26/25 10:48 Potassium 4.6 mmol/L (3.5-5.1) 05/26/25 10:48 Chloride 103 mmol/L (98-107) 05/26/25 10:48 Carbon Dioxide 27 mmol/L (22-29) 05/26/25 10:48 Anion Gap 13.6 (5-19) 05/26/25 10:48 BUN 20 mg/dL (6-20) 05/26/25 10:48 Creatinine 1.1 mg/dL (0.7-1.2) 05/26/25 10:48 GFR Calculation 71.1 mL/min (90-130) L 05/26/25 10:48 Glucose 72 mg/dL (65-115) 05/26/25 10:48 Calculated Osmolality 289 mOsm/kg (285-295) 05/26/25 10:48 Calcium 9.3 mg/dL (8.5-10.5) 05/26/25 10:48 Total Bilirubin 0.4 mg/dL (0.15-1.2) 05/26/25 10:48 AST 28 U/L (0-40) 05/26/25 10:48 ALT 21 U/L (0-41) 05/26/25 10:48 Alkaline Phosphatase 116 U/L (40-130) 05/26/25 10:48 Troponin T Baseline 10 ng/L (0-15) 05/26/25 10:48 Total Protein 7.6 g/dL (6.6-8.7) 05/26/25 10:48 Albumin 4.5 g/dL (3.5-5.2) 05/26/25 10:48 Globulin 3.1 g/dL (1.3-4.6) 05/26/25 10:48 Lipase 42 U/L (13-60) 05/26/25 10:48 All radiology interpretation(s) finalized by discharge Clincial Decision Support The following clinical decision support tools were used to aid in care of the patient HEART Score -> History: Slightly Suspicous, EKG: Normal, Age: 45-64 yrs, Risk Factors: No Risk Factors Known, Troponin: Baseline Trop <16 ng/L. Resulting HEART Score: 1. Discharge Plan Discharge Patient Disposition: Home Clinical Impression: Non-cardiac chest pain Condition: Stable Prescriptions: No Action ibuprofen 600 mg tablet 600 mg PO Q8H PRN (Reason: pain) Qty: 30 0RF oxycodone-acetaminophen [Percocet] 5-325 mg tablet 1 tab PO Q8H PRN (Reason: pain) Qty: 10 0RF cephalexin 500 mg capsule 500 mg PO QID Discharge Orders: Discharge ED (Routine); Ordered 05/26/25 Ordered By: Debbie Ware Referrals: Geena Bhatia MD [Primary Care Provider, Family Practice] Discharge Diet: Usual diet Discharge Activity: Increase activity as tolerated Patient Instructions: Noncardiac Chest Pain (ED), Opioid Safety, Pain Management, Patient Portal & Abbey Instructions Activity Restrictions/Additional Instructions: Thank you for choosing [facility] for your healthcare needs today. You have been screened and evaluated and felt safe for discharge. Health conditions do change or evolve sometimes and as such it is important that you follow up with your Primary Doctor to be re checked, 3-5 days is a general good time frame for follow up. You are always welcome to return to the ED for re assessment if your symptoms are worsening or you have new concerns Print Language: Greenlandic Coding Level of Care Code ED Hearing Aide Technician for Chg Fwd Heart Score HEART Score Components History: Slightly Suspicous EKG: Normal Age: 45-64 yrs Risk Factors: No Risk Factors Known Troponin: Baseline Trop <16 ng/L HEART Score RESULT HEART Score: 1
[2025-05-26 11:22] LABS: INR 0.92 (0.8-1.2); Prothrombin Time 13.00 SECONDS (12.1-14.9)
[2025-05-26 11:27] LABS: Alanine Aminotransferase 21 U/L (0-41); Albumin Level 4.5 g/dL (3.5-5.2); Alkaline Phosphatase 116 U/L (40-130); Anion Gap 13.6 (5-19); Aspartate Amino Transferase 28 U/L (0-40); Blood Urea Nitrogen 20 mg/dL (6-20); Calcium 9.3 mg/dL (8.5-10.5); Carbon Dioxide 27 mmol/L (22-29); Chloride 103 mmol/L (98-107); Creatinine Clr Calc Pharmacy 104.5277; Globulin 3.1 g/dL (1.3-4.6); Glucose 72 mg/dL (65-115); Lipase 42 U/L (13-60); Osmolality Calculated 289 mOsm/kg (285-295); Potassium 4.6 mmol/L (3.5-5.1); Sodium 139 mmol/L (136-145); Total Protein 7.6 g/dL (6.6-8.7)
[2025-05-26 11:29] LABS: Troponin(5th) Baseline 10 ng/L (0-15)
[2025-05-26 11:48] VITALS: BP 134/88; PULSE 65; O2SAT 97
--- NOTE | 2025-05-27 08:31 | DCPLANNER ---
Addendum entered by Skylar Calles 05/28/25 13:28: faxed outpatient stress order to scheduling Original Note: messaged heart care for er f/u
== END 2025-05-26 11:59 | disposition home or self-care (01) ==
PROVIDERS: Emergency Medicine; Emergency Provider Emergency Medicine; PCP Family Medicine
DX: R07.89 Other chest pain (principal); Z95.2 Presence of prosthetic heart valve
CPT/HCPCS: 36415; 71045; 80053; 83690; 84484; 85025; 85610; 93005; 99285

== ENCOUNTER 2025-06-14 21:31 | Emergency (ER) | payer OTHER, SELFPAY ==
[2025-06-14 21:32] VITALS: BP 105/68; PULSE 96; RESP 18; TEMP 36.9; O2SAT 92; BMI 37.5
--- NOTE | 2025-06-14 21:33 | XRR_ITS ---
PROCEDURE INFORMATION: Exam: XR Chest Exam date and time: 06/14/2025 9:40 PM Age: 49 years old Clinical indication: Pain; Chest pressure; Prior surgery; Surgery date: 6+ months; Surgery type: Tricuspid valve; Additional info: Chest pain TECHNIQUE: Imaging protocol: Radiologic exam of the chest. Views: 1 view. COMPARISON: CR XR chest 1V portable [id number] 05/26/2025 10:43 AM FINDINGS: Lungs: Unremarkable. No consolidation. A few scattered nonspecific although chronic appearing pulmonary strands. Pleural spaces: Unremarkable. No pleural effusion. No pneumothorax. Heart/Mediastinum: Post cardiac surgery residuals. Bones/joints: Unremarkable. XR/XR chest 1V portable [id number] IMPRESSION: No definite acute infiltrate or effusion.
--- NOTE | 2025-06-14 21:34 | ECG_ITS ---
[facility] Date: 2025-06-14 Pat Name: Radu Olivera Department: Room: Gender: Male Register Of Deeds: : 1975 Requested By: Mariam Landin Order Number: [id number] Reading MD: Measurements Intervals [place] Rate: 90 P: 42 CO: 118 QRS: 38 QRSD: 102 T: 39 QT: 345 QTc: 423 Interpretive Statements SINUS RHYTHM WITH SHORT CO INTERVAL POSSIBLE LEFT ATRIAL ENLARGEMENT [-0.1mV P-WAVE IN V1/V2] No previous ECG available for comparison [id number]
--- NOTE | 2025-06-14 21:34 | ED_ITS ---
HPI - Chest Pain 2 General: Chief Complaint: Chest Pain Stated Complaint: cp Time Seen by Provider: 06/14/25 21:33 Source: patient Mode of arrival: ambulatory Limitations: no limitations History of Present Illness: Patient is a 49-year-old male with a history of methamphetamine use, endocarditis with tricuspid valve replacement back in 2017, bacteremia here for evaluation of chest pain and palpitations that started just a few hours ago. Patient states he had just laid down to go to sleep when the discomfort awoke him. He currently resides at [facility] for treatment of his drug rehabilitation. He states he has not used methamphetamine in several weeks. Staff at [facility] reportedly placed a finger pulse ox on patient and he was told that his heart rate was 180-200 . EMS states when they arrived that his heart rate was normal in the 80s. Remainder of vitals were unremarkable. Patient does report feeling better upon arrival and is no longer having the palpitations. He does feel like his heart is beating harder than normal . He is not complaining of active chest pain. He clinically appears no acute distress. MD complaint: chest pain and other (palpitations) Onset (ago): hour(s) Timing of current episode: other (improving) Onset: during rest Pain location: left chest Pain radiation: none Severity: moderate Relieving factors: nothing Exacerbating factors: nothing Associated symptoms: Reports no associated symptoms and palpitations; Deny abdominal pain, dyspnea, fever(s) or syncope Treatment prior to arrival: none Risk Factors: Coronary artery disease risk factors: none Thoracic aortic dissection risk factors: none Related Data Home Medications ?Medication ?Instructions ?Recorded ?Confirmed cephalexin 500 mg capsule 500 mg PO QID 12/30/2412/30 Previous Rx's ?Medication ?Instructions ?Recorded ibuprofen 600 mg tablet 600 mg PO Q8H PRN pain #30 t abs 12/22/24 oxycodone-acetaminophen 5 mg-325 1 tab PO Q8H PRN pain #10 tabs 12/23/24 mg tablet (Percocet) Allergies Allergy/AdvReac Type Severity Reaction Status Date / Time antibiotic for pseudomonas Allergy ALGY-Rash Uncoded 12/22/24 16:45 Review of Systems 2 Const: Denies: fever(s), chills, body aches, fatigue or malaise Card: Reports: chest pain and palpitations; Denies: irregular heart rhythm, edema, swelling of feet/ankles, lightheadedness, syncope, pre-syncope, dyspnea on exertion, orthopnea, leg pain with exertion or acrocyanosis Resp: Denies: dyspnea, wheezing, pain on inspiration, hemoptysis or chest congestion GI: Denies: abdominal pain Musc: Denies: neck pain, back pain, extremity pain, extremity swelling, joint pain or joint swelling Skin/Breast: Denies: rash Neuro: Denies: headache(s), numbness in extremities, weakness in extremities, sensory changes or dizziness PFSH ED 2 PFSH: Medical History IV drug abuse Endocarditis of tricuspid valve Surgical History H/O tricuspid valve replacement Physical Exam 2 Const: COMMON NORMALS: no acute distress, patient oriented x3, no limitations, alert and well nourished GENERAL APPEARANCE: cooperative NUTRITIONAL APPEARANCE: overweight ORIENTATION/CONSCIOUSNESS: Yes awake, Yes oriented to person, Yes oriented to place and Yes oriented to time HENMT: COMMON NORMALS: normocephalic and atraumatic HEAD & SCALP: normal to inspection, normocephalic and atraumatic Neck/C-Spine: COMMON NORMALS: full ROM, no lymphadenopathy, supple, no meningeal signs and no JVD Chest: COMMONS NORMALS: normal inspection of the chest and normal palpation of entire chest wall Resp: COMMON NORMALS: normal respiratory effort and clear to auscultation bilaterally AUSCULTATION: clear to auscultation bilaterally Cardio: COMMON NORMALS: no JVD, regular rate and regular rhythm RATE: r egular rate RHYTHM: regular rhythm GI: COMMON NORMALS: Normal to inspection, nondistended, normoactive bowel sounds present, Soft to palpation, non-tender, No hepatosplenomegaly present and no masses PALPATION: Yes Soft to palpation and Yes No hepatosplenomegaly present : COMMON NORMALS: Yes no CVA tenderness BLADDER/KIDNEY EXAM: Yes no CVA tenderness Back/Pelvis: COMMON NORMALS: no CVA tenderness and thoracic and lumbar spine normal to inspection Extremity: COMMON NORMALS: normal to inspection, capillary refill normal, no clubbing, cyanosis or edema, no calf tenderness and no pedal edema GENERAL: Y es normal exam except as noted Neuro: MORELIA COMA SCALE: document GCS findings [place] coma scale eye opening: Spontaneous [place] coma scale verbal response: Orientated [place] coma scale motor response: Obey commands [place] coma scale total score: 15 COMMON NORMALS: patient oriented x3, moves all extremities, no focal motor deficits and no sensory deficits noted SENSORIUM/ORIENTATION: Yes alert, Yes oriented to person, Yes oriented to place and Yes oriented to time MENINGEAL SIGNS: Yes no meningeal signs Skin: COMMON NORMALS: no rashes or lesions noted GENERAL SKIN EXAM: no rashes or lesions noted Course 2 Vital Signs: Vital signs: Vital Signs Temperature 98.4 F 06/14/25 21:32 Pulse Rate 62 06/14/25 23:10 Respiratory Rate 18 06/14/25 21:32 Blood Pressure 91/65 06/14/25 23:10 Pulse Oximetry 97 06/14/25 23:10 Oxygen Delivery Me thod Room Air 06/14/25 22:54 MDM - Chest Pain Medical Decision Making Differential diagnosis for patient with chest pain/palpitations includes but is not limited to and based on the above HPI, review of systems and physical exam: pneumonia, pneumothorax, aneurysm/dissection, unstable angina, angina, acute coronary syndrome/[place], pulmonary embolism, costochondritis/musculoskeletal, pleurisy, pericarditis/endocarditis/myocarditis, esophageal spasm, gastritis/GERD, among others. Orders placed to evaluate differential diagnosis based on the above differential, HPI and physical exam EKG: Time 2137. Rate 90. Normal sinus rhythm, No ST-T changes, no ectopy. This was reviewed and interpreted by myself. This was compared to previous EKGs on file and no acute changes were noted. 2hr EKG at 2331 showing normal sinus rhythm with no acute changes when compared to EKG performed earlier on visit. Chest x-ray: No acute process. No infiltrate. No pneumothorax. This was reviewed and interpreted by myself with official radiology report later obtained and reviewed. Lab Review: Laboratory results were reviewed and interpreted by myself. No leukocytosis. Stable hemoglobin. No renal failure. Baseline and 2hr troponins are unremarkable. I reviewed the patient's medical record. Re-examination: Patient remained stable. No increased work of breathing. He is resting comfortably. He does not complain of chest pain or palpitations. Assessment and plan: Chest pain HEART score of 2 - Discharged home - Discussed plan with patient. Answered any questions. Plan will be for PCP follow up - Discussed return precautions Medical Records I reviewed the patient's medical records. Lab Data I reviewed the patient's lab results. 06/14/25 21:14 06/14/25 21:14 Radiology Impressions Chest X-Ray 06/14/25 21:33 IMPRESSION: No definite acute infiltrate or effusion. Laboratory Results WBC 7.83 10^3/uL (3.29-11.43) 06/14/25 21:14 RBC 5.61 10^6/uL (3.85-5.65) 06/14/25 21:14 Hgb 17.30 g/dL (11.27-16.99) H 06/14/25 21:14 Hct 49.8 % (37-53) 06/14/25 21:14 MCV 88.8 fl (82-101) 06/14/25 21:14 MCH 30.8 pg (27-33) 06/14/25 21:14 MCHC 34.7 g/dL (30-55) 06/14/25 21:14 RDW 13.4 % (12.1-15.1) 06/14/25 21:14 Plt Count 256 10^3/cmm (157-399) 06/14/25 21:14 MPV 9.4 fL (7.4-10.4) 06/14/25 21:14 Neut % (Auto) 41.3 % 06/14/25 21:14 Lymph % (Auto) 44.2 % 06/14/25 21:14 [place] % (Auto) 10.1 % 06/14/25 21:14 Eos % (Auto) 3.1 % 06/14/25 21:14 Baso % (Auto) 1.0 % 06/14/25 21:14 Neut # (Auto) 3.24 10^3/uL (1.8-7.7) 06/14/25 21:14 Lymph # (Auto) 3.5 10^3/uL (0.8-4.8) 06/14/25 21:14 [place] # (Auto) 0.8 10^3/uL (0.2-0.9) 06/14/25 21:14 Eos # (Auto) 0.2 10^3/uL (0.0-0.8) 06/14/25 21:14 Baso # (Auto) 0.1 10^3/uL (0.0-0.1) 06/14/25 21:14 Nucleated RBC % (auto) 0 % 06/14/25 21:14 Nucleated RBCs # 0.0 /100WBC 06/14/25 21:14 D-Dimer <= 0.27 ug/mLFEU (0-0.59) 06/14/25 22:07 Sodium 138 mmol/L (136-145) 06/14/25 21:14 Potassium 4.8 mmol/L (3.5-5.1) 06/14/25 21:14 Chloride 102 mmol/L (98-107) 06/14/25 21:14 Carbon Dioxide 22 mmol/L (22-29) 06/14/25 21:14 Anion Gap 18.8 (5-19) 06/14/25 21:14 BUN 23 mg/dL (6-20) H 06/14/25 21:14 Creatinine 1.0 mg/dL (0.7-1.2) 06/14/25 21:14 GFR Calculation 79.4 mL/min (90-130) L 06/14/25 21:14 Glucose 97 mg/dL (65-115) 06/14/25 21:14 Calculated Osmolality 290 mOsm/kg (285-295) 06/14/25 21:14 Calcium 9.6 mg/dL (8.5-10.5) 06/14/25 21:14 Total Bilirubin 0.3 mg/dL (0.15-1.2) 06/14/25 21:14 AST 28 U/L (0-40) 06/14/25 21:14 ALT 27 U/L (0-41) 06/14/25 21:14 Alkaline Phosphatase 105 U/L (40-130) 06/14/25 21:14 Troponin T Baseline 9 ng/L (0-15) 06/14/25 21:14 Troponin T 120 Minute 9.92 ng/L (0-15) 06/14/25 23:01 Delta Troponin T 0.92 ABS# (0-10) 06/14/25 23:01 Total Protein 7.4 g/dL (6.6-8.7) 06/14/25 21:14 Albumin 4.5 g/dL (3.5-5.2) 06/14/25 21:14 Globulin 2.9 g/dL (1.3-4.6) 06/14/25 21:14 All radiology interpretation(s) finalized by discharge EKG Data EKG 1: I personally reviewed and interpreted this EKG as follows: EKG interpretation date: 06/14/25 EKG interpretation time: 21:37 Prior EKG tracings: available for review Interpretation: Sinus rhythm Rate [address] elevation or depression changes noted Normal QTc interval EKG 2: EKG interpretation date: 06/14/25 EKG interpretation time: 23:31 Prior EKG tracings: available for review Interpretation: Sinus rhythm Rate [address] elevation or depression changes noted No acute changes were noted to EKG performed earlier on same visit Discharge Plan Discharge Patient Disposition: Home Clinical Impression: Atypical chest pain Condition: Stable Prescriptions: No Action ibuprofen 600 mg tablet 600 mg PO Q8H PRN (Reason: pain) Qty: 30 0RF oxycodone-acetaminophen [Percocet] 5-325 mg tablet 1 tab PO Q8H PRN (Reason: pain) Qty: 10 0RF cephalexin 500 mg capsule 500 mg PO QID Discharge Orders: Discharge ED (Routine); Ordered 06/14/25 Ordered By: Mariam Landin Referrals: Geena Bhatia MD [Primary Care Provider, [facility]] Patient Instructions: Patient Portal & Abbey Instructions Activity Restrictions/Additional Instructions: As we discussed, [facility] would [facility]. They may opt to schedule you for an outpatient cardiac stress test. You may return to the emergency department for onset of severe and constant chest pain, shortness of breath, difficulty breathing, or any other concerns you may have. Print Language: Hungarian Coding Level of Care Code ED Cook'S Assistant for Chg Fwd Heart Score HEART Score Components History: Slightly Suspicous EKG: Normal Age: 45-64 yrs Risk Factors: 1 or 2 Risk Factors Troponin: Baseline Trop <16 ng/L HEART Score RESULT HEART Score: 2
[2025-06-14 21:58] LABS: Hematocrit 49.8 % (37-53); Hemoglobin 17.30 g/dL (11.27-16.99); Mean Corpuscular HGB Conc 34.7 g/dL (30-55); Mean Corpuscular Hemoglobin 30.8 pg (27-33); Mean Corpuscular Volume 88.8 fl (82-101); Nucleated Red Blood Cells % 0 %; Platelet Count 256 10^3/cmm (157-399); Red Blood Count 5.61 10^6/uL (3.85-5.65); White Blood Count 7.83 10^3/uL (3.29-11.43)
[2025-06-14 22:19] VITALS: BP 98/60; PULSE 72; O2SAT 96
[2025-06-14 22:20] LABS: Troponin(5th) Baseline 9 ng/L (0-15)
[2025-06-14 22:22] LABS: Alanine Aminotransferase 27 U/L (0-41); Albumin Level 4.5 g/dL (3.5-5.2); Alkaline Phosphatase 105 U/L (40-130); Anion Gap 18.8 (5-19); Aspartate Amino Transferase 28 U/L (0-40); Blood Urea Nitrogen 23 mg/dL (6-20); Calcium 9.6 mg/dL (8.5-10.5); Carbon Dioxide 22 mmol/L (22-29); Chloride 102 mmol/L (98-107); Creatinine Clr Calc Pharmacy 115.4391; Globulin 2.9 g/dL (1.3-4.6); Glucose 97 mg/dL (65-115); Osmolality Calculated 290 mOsm/kg (285-295); Potassium 4.8 mmol/L (3.5-5.1); Sodium 138 mmol/L (136-145); Total Protein 7.4 g/dL (6.6-8.7)
[2025-06-14 22:53] VITALS: BP 91/63; PULSE 70; O2SAT 97
[2025-06-14 22:54] VITALS: O2SAT 97
[2025-06-14 23:10] VITALS: BP 91/65; PULSE 62; O2SAT 97
[2025-06-14 23:28] LABS: Troponin 5 2HR 9.92 ng/L (0-15); Troponin 5 2HR Delta 0.92 ABS# (0-10)
--- NOTE | 2025-06-14 23:34 | ECG_ITS ---
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
[2025-06-14 23:50] VITALS: BP 102/69; PULSE 72; O2SAT 97
== END 2025-06-14 23:54 | disposition home or self-care (01) ==
PROVIDERS: Emergency Provider Physician Assistant; PCP Family Medicine
DX: R07.89 Other chest pain (principal)
CPT/HCPCS: 36415; 71045; 80053; 84484; 85025; 85378; 93005; 99285

== ENCOUNTER 2025-07-09 12:00 | Outpatient (CLI) | payer OTHER, SELFPAY ==
[2025-07-09 12:13] VITALS: BMI 28.7
--- NOTE | 2025-07-09 12:17 | ECG_ITS ---
[facility] Test Date: 2025-07-09 Pat Name: Radu Olivera Department: Room: Gender: Male [employer] Restaurant: : 1975 Requested By: Debbie Rosas Order Number: [id number] Nina MD: Interpretive Statements Lung unchanged pre/post procedure; Intraprocedure shortess of breath; Symptoms resoled by discharge [id number] [id number]
[2025-07-09 12:39] VITALS: BP 132/84; PULSE 99
== END 2025-07-09 12:01 | disposition home or self-care (01) ==
LOC: CDL 12:01
PROVIDERS: PCP Family Medicine; Visit Provider Emergency Medicine
DX: R07.9 Chest pain, unspecified (principal)
CPT/HCPCS: 93017

== ENCOUNTER 2025-07-16 13:17 | Outpatient (CLI) | payer OTHER, SELFPAY ==
--- NOTE | 2025-07-16 13:24 | USCV_ITS ---
OliveraRadu zuñiga Age: 49 Gender: M : 1975 Exam Date: 07/16/2025 13:55 Ordering Phys: Renetta Magaña APRN Technologist: Exam Location: [facility] – [place] Indication: tv repair or pros BP: 120 / 70 HR: 85 Rhythm: Sinus Technical Quality: Adequate MEASUREMENTS (Male / Female) Normal Values 2D ECHO LV Diastolic Diameter PLAX 3.6 cm 4.2 - 5.9 / 3.9 - 5.3 cm IVS Diastolic Thickness 1.1 cm 0.6 - 1.0 / 0.6 - 0.9 cm IVS Systolic Thickness 1.5 cm LVPW Diastolic Thickness 1.3 cm 0.6 - 1.0 / 0.6 - 0.9 cm LVPW Systolic Thickness 1.8 cm LVOT Diameter 2.1 cm LV Ejection Fraction 2D Teich 65.5 % LV Ejection Fraction MOD 4C 68.5 % LV Ejection Fraction MOD 2C 50.6 % LV Ejection Fraction 2C AL 50.3 % LA Diameter 3.8 cm RA Systolic Volume 4C AL 58.7 ml RA Systolic Volume 4C MOD 56.4 ml Aorta at Sinotubular Diameter 3.3 cm IVC Diameter 1.9 cm M-MODE LA Ao Ratio MM 1.5 AV Cusp Separation MM 3.5 cm DOPPLER AV Peak Velocity 107.0 cm/s LVOT Peak Velocity 63.0 cm/s AV Area Cont Eq vti 2.2 cm squared AV Area Cont Eq pk 2.0 cm squared MV Peak Velocity 60.0 cm/s MV Area PHT 2.5 cm squared Mitral E to A Ratio 0.9 TV Peak Velocity 160.0 cm/s TR Peak Velocity 292.0 cm/s TR Peak Gradient 34.1 mmHg TV Peak E Velocity 131.0 cm/s PV Peak Velocity 91.0 cm/s FINDINGS Left Ventricle Normal left ventricular size. Normal left ventricular systolic function. Left ventricular ejection fraction 65%. Mild concentric left ventricular hypertrophy. Normal left ventricular diastolic function. Right Ventricle Normal right ventricular size and systolic function. Right Atrium Normal right atrial size. Left Atrium Normal left atrial size. IA Septum Normal appearance of the interatrial septum. Mitral Valve Normal mitral valve structure. No mitral valve stenosis or regurgitation. Aortic Valve Normal aortic valve structure. No aortic valve stenosis or regurgitation. Tricuspid Valve There is a bioprosthetic tricuspid valve replacement that is not well-visualized but there appears to be trace regurgitation and no significant stenosis with a mean pressure gradient of 3.5 mmHg at a heart rate of 87 bpm. Normal pulmonary pressure. Pulmonic Valve Normal pulmonic valve structure. No pulmonic valve stenosis or regurgitation. Pericardium No pericardial effusion. Aorta Normal diameter of the aortic root and ascending thoracic aorta. IVC Normal IVC diameter. CONCLUSIONS Normal left ventricular size, systolic function and ejection fraction of 65%. Mild left ventricular hypertrophy Normal right ventricular size and systolic function. There is a bioprosthetic tricuspid valve replacement that is not well-visualized but there appears to be trace regurgitation and no significant stenosis with a mean pressure gradient of 3.5 mmHg at a heart rate of 87 bpm. Normal pulmonary artery systolic pressure Mk Momin MD, FACC (Electronically Signed) Final Date: 16 July 2025 14:39 S
== END 2025-07-16 13:18 | disposition home or self-care (01) ==
LOC: RAD 13:19
PROVIDERS: PCP Nurse Practitioner Family; Visit Provider Nurse Practitioner Family
DX: Z01.89 Encounter for other specified special examinations (principal); I51.7 Cardiomegaly; I36.1 Nonrheumatic tricuspid (valve) insufficiency
CPT/HCPCS: 93306